=== PATIENT | female | born 2000 | race Caucasian/White ===

== ENCOUNTER 2023-06-18 20:07 | Inpatient (IN) | payer OTHER ==
[2023-06-18] MEDS ORDERED: SODIUM CHLORIDE 0.9% 1,000 ML IV STA (20:37)
--- NOTE | 2023-06-18 21:06 | ED ---
Neuro HPI - General Chief Complaint: Neuro Symptoms/Deficit Stated Complaint: numbness legs,back pain Time Seen by Provider: 06/18/23 20:24 Source: patient, RN notes reviewed, old records reviewed Mode of arrival: wheelchair Limitations: no limitations - History of Present Illness Is the patient presenting with stroke symptoms?: No -: days(s) (3) Initial Comments: This is a 22-year-old female to the emergency department for evaluation today. Patient presents today for evaluation bilateral lower extremity weakness significant numbness tingling of the lower legs lower extremities as well as difficulty walking today. Patient's been seen at initially urgent care and then sent to stand on emergency department and currently saw primary care today who sent her to this emergency department for evaluation regarding lower extremity weakness. No recent illness no nausea vomiting diarrhea. No other complaints Location: left leg, right leg Place: home Severity: severe Quality: weak, numb Improves With: none Worsens With: time On Anticoagulants: No Context: gradual onset Associated Symptoms: denies other symptoms Treatments Prior to Arrival: none - Related Data Home Medications: Home Medications Medication Instructions Recorded Confirmed Lumateperone Tosylate [Caplyta] 42 mg PO HS 06/18/23 06/22/23 PARoxetine HCL [Paxil] 10 mg PO HS 06/18/23 06/22/23 buPROPion XL [Wellbutrin XL] 300 mg PO DAILY 06/18/23 06/22/23 norgestimate-ethinyl estradioL 1 tab PO DAILY 06/18/23 06/22/23 [Lucy 0.25-0.035 mg Tablet] Previous Rx's Medication Instructions Recorded Cholecalciferol [Vitamin D3 (25 1,000 unit PO DAILY #30 tab 06/21/23 Mcg = 1000 Iu)] Cyanocobalamin [Vitamin B-12 1,000 mcg IM DIRECTED #10 ml 06/21/23 Injection] Allergies/Adverse Reactions: Allergies Allergy/AdvReac Type Severity Reaction Status Date / Time No Known Allergies Allergy Verified 06/22/23 14:43 Review of Systems ROS Statement: Those systems with pertinent positive or pertinent negative responses have been documented in the HPI. ROS Other: All systems not noted in ROS Statement are negative. General Exam - General Exam Comments Initial Comments: No appreciable patellar reflexes Patient is walking stiffly with significant difficulty in her gait Limitations: no limitations General appearance: alert, in no apparent distress Head exam: Present: atraumatic, normocephalic, normal inspection Eye exam: Present: normal appearance, PERRL, EOMI. Absent: scleral icterus, conjunctival injection, periorbital swelling ENT exam: Present: normal exam, mucous membranes moist Neck exam: Present: normal inspection. Absent: tenderness, meningismus, lymphadenopathy Respiratory exam: Present: normal lung sounds bilaterally. Absent: respiratory distress, wheezes, rales, rhonchi, stridor Cardiovascular Exam: Present: regular rate, normal rhythm, normal heart sounds. Absent: systolic murmur, diastolic murmur, rubs, gallop, clicks GI/Abdominal exam: Present: soft, normal bowel sounds. Absent: distended, tenderness, guarding, rebound, rigid Extremities exam: Present: normal inspection, full ROM, normal capillary refill. Absent: tenderness, pedal edema, joint swelling, calf tenderness Back exam: Present: normal inspection Neurological exam: Present: alert, oriented X3, CN II-XII intact Psychiatric exam: Present: normal affect, normal mood Skin exam: Present: warm, dry, intact, normal color. Absent: rash Stroke MDM - Lab Data Result diagrams: 06/19/23 08:21 06/19/23 08:21 Lab Results 06/18/23 06/18/23 06/18/23 Range/Units 20:56 20:56 20:56 WBC 7.8 (3.8-10.6) k/uL RBC 3.84 (3.80-5.40) m/uL Hgb 12.5 (11.4-16.0) gm/dL Hct 36.3 (34.0-46.0) % MCV 94.5 (80.0-100.0) fL MCH 32.6 (25.0-35.0) pg MCHC 34.5 (31.0-37.0) g/dL RDW 15.5 (11.5-15.5) % Plt Count 325 (150-450) k/uL MPV 7.5 Neutrophils % 74 % Lymphocytes % 19 % Monocytes % 6 % Eosinophils % 1 % Basophils % 0 % Neutrophils # 5.8 (1.3-7.7) k/uL Lymphocytes # 1.5 (1.0-4.8) k/uL Monocytes # 0.5 (0-1.0) k/uL Eosinophils # 0.0 (0-0.7) k/uL Basophils # 0.0 (0-0.2) k/uL PT 11.1 (10.0-12.5) sec INR 1.0 (<1.2) APTT 23.1 (22.0-30.0) sec Sodium (137-145) mmol/L Potassium (3.5-5.1) mmol/L Chloride (98-107) mmol/L Carbon Dioxide (22-30) mmol/L Anion Gap mmol/L BUN (7-17) mg/dL Creatinine (0.52-1.04) mg/dL Est GFR (CKD-EPI)AfAm (>60 ml/min/1.73 sqM) Est GFR (CKD-EPI)NonAf (>60 ml/min/1.73 sqM) Glucose (74-99) mg/dL Plasma Lactic Acid Lam (0.7-2.0) mmol/L Calcium (8.4-10.2) mg/dL Phosphorus (2.5-4.5) mg/dL Magnesium (1.6-2.3) mg/dL Total Bilirubin (0.2-1.3) mg/dL AST (14-36) U/L ALT (4-34) U/L Alkaline Phosphatase (38-126) U/L Total Protein (6.3-8.2) g/dL Albumin (3.5-5.0) g/dL Urine Color Colorless Urine Appearance Clear (Clear) Urine pH 6.0 (5.0-8.0) Ur Specific [place] 1.010 (1.001-1.035) Urine Protein Negative (Negative) Urine Glucose (UA) Negative (Negative) Urine Ketones Negative (Negative) Urine Blood Negative (Negative) Urine Nitrite Negative (Negative) Urine Bilirubin Negative (Negative) Urine Urobilinogen <2.0 (<2.0) mg/dL Ur Leukocyte Esterase Negative (Negative) Urine HCG, Qual (Not Detectd) 06/18/23 06/18/23 06/18/23 Range/Units 20:56 20:56 20:56 WBC (3.8-10.6) k/uL RBC (3.80-5.40) m/uL Hgb (11.4-16.0) gm/dL Hct (34.0-46.0) % MCV (80.0-100.0) fL MCH (25.0-35.0) pg MCHC (31.0-37.0) g/dL RDW (11.5-15.5) % Plt Count (150-450) k/uL MPV Neutrophils % % Lymphocytes % % Monocytes % % Eosinophils % % Basophils % % Neutrophils # (1.3-7.7) k/uL Lymphocytes # (1.0-4.8) k/uL Monocytes # (0-1.0) k/uL Eosinophils # (0-0.7) k/uL Basophils # (0-0.2) k/uL PT (10.0-12.5) sec INR (<1.2) APTT (22.0-30.0) sec Sodium 141 (137-145) mmol/L Potassium 4.6 (3.5-5.1) mmol/L Chloride 107 (98-107) mmol/L Carbon Dioxide 24 (22-30) mmol/L Anion Gap 10 mmol/L BUN 16 (7-17) mg/dL Creatinine 0.75 (0.52-1.04) mg/dL Est GFR (CKD-EPI)AfAm >90 (>60 ml/min/1.73 sqM) Est GFR (CKD-EPI)NonAf >90 (>60 ml/min/1.73 sqM) Glucose 140 H (74-99) mg/dL Plasma Lactic Acid Lam 1.0 (0.7-2.0) mmol/L Calcium 9.4 (8.4-10.2) mg/dL Phosphorus 3.1 (2.5-4.5) mg/dL Magnesium 1.9 (1.6-2.3) mg/dL Total Bilirubin 0.3 (0.2-1.3) mg/dL AST 16 (14-36) U/L ALT 18 (4-34) U/L Alkaline Phosphatase 41 (38-126) U/L Total Protein 6.8 (6.3-8.2) g/dL Albumin 4.1 (3.5-5.0) g/dL Urine Color Urine Appearance (Clear) Urine pH (5.0-8.0) Ur Specific [place] (1.001-1.035) Urine Protein (Negative) Urine Glucose (UA) (Negative) Urine Ketones (Negative) Urine Blood (Negative) Urine Nitrite (Negative) Urine Bilirubin (Negative) Urine Urobilinogen (<2.0) mg/dL Ur Leukocyte Esterase (Negative) Urine HCG, Qual Not Detected (Not Detectd) - NIH Stroke Scale 1a. Level of Consciousness: (0) alert 1b. LOC Questions: (0) answers correctly 1c. LOC Commands: (0) performs tasks correctly 2. Best Gaze: (0) normal 3. Visual: (0) no visual loss 4. Facial Palsy: (0) normal symmetrical movement 5a. Motor Arm Left: (0) no drift 5b. Motor Arm Right: (0) no drift 6a. Motor Leg Left: (2) some gravity effort 6b. Motor Leg Right: (2) some gravity effort 7. Limb Ataxia: (0) absent 8. Sensory: (0) normal 9. Best Language: (0) no aphasia 10. Dysarthria: (0) normal 11. Extinction/Inattention: (0) no abnormality - Thrombolytic Inclusion/Exclusion Thrombolytic Exclusion Criteria: Symptom Onset > 4.5 Hours - Medical Decision Making 22 female presents emergency department with significant lower extremity weakness, decreased sensation decreased reflexes concern for Guillain-Tong syndrome. Patient be admitted for neurology to evaluate - EKG Data -: EKG Interpreted by Me (EKG is sinus 85 MN 104 QRS 86 QTC 398) Past Medical History Past Medical History: No Reported History History of Any Multi-Drug Resistant Organisms: None Reported Past Surgical History: No Surgical Hx Reported Past Psychological History: Anxiety, Depression Smoking Status: Vaper Past Alcohol Use History: None Reported Past Drug Use History: None Reported Course Vital Signs 06/18/23 06/18/23 06/18/23 20:10 21:01 22:00 Temperature 98.1 F Pulse Rate 92 80 70 Respiratory 18 18 18 Rate Blood Pressure 132/82 121/72 99/61 O2 Sat by Pulse 98 98 99 Oximetry 06/18/23 06/19/23 06/19/23 23:00 01:00 04:00 Temperature Pulse Rate 79 72 73 Respiratory 18 16 16 Rate Blood Pressure 90/59 100/69 104/54 O2 Sat by Pulse 98 98 98 Oximetry 06/19/23 05:00 Temperature Pulse Rate 67 Respiratory 16 Rate Blood Pressure 102/61 O2 Sat by Pulse 97 Oximetry - Reevaluation(s) Reevaluation #1: 06/18/23 21:22 Medical records reviewed Reevaluation #2: 06/18/23 21:22 Patient symptoms unchanged Reevaluation #3: 06/18/23 21:22 Patient informed results questions answered Reevaluation #4: 06/18/23 21:22 Was pt. sent in by a medical professional or institution (, [facility], [facility], urgent care, hospital, or usp...) When possible be specific @ -no Did you speak to anyone other than the patient for history (EMS, parent, family, police, friend...)? What history was obtained from this source @ -no Did you review nursing and triage notes (agree or disagree)? Why? @ -agree Are old charts reviewed (outside hosp., previous admission, EMS record, old EKG, old radiological studies, urgent care reports/EKG's, usp records)? Report findings @ -yes Differential Diagnosis (chest pain, altered mental status, abdominal pain women, abdominal pain men, vaginal bleeding, weakness, fever, dyspnea, syncope, headache, dizziness, GI bleed, back pain, seizure, CVA, palpatations, mental health, musculoskeletal)? @ -prior EKG interpreted by me (3pts min.). @ -yes X-rays interpreted by me (1pt min.). @ -no CT interpreted by me (1pt min.). @ -no U/S interpreted by me (1pt. min.). @ -no What testing was considered but not performed or refused? (CT, X-rays, U/S, labs)? Why? @ -none What meds were considered but not given or refused? Why? @ -none Did you discuss the management of the patient with other professionals (professionals i.e. [facility], [facility], lab, RT, psych nurse, director social welfare, chip frier, teacher, life science technical officer, renal case manager)? Give summary @ -no Was smoking cessation discussed for >3mins.? @ -no Was critical care preformed (if so, how long)? @ -yes31 Were there social determinants of health that impacted care today? How? (Homelessness, low income, unemployed, alcoholism, drug addiction, transportati on, low edu. Level, literacy, decrease access to med. care, halfway, rehab)? @ -none Was there de-escalation of care discussed even if they declined (Discuss DNR or withdrawal of care, Hospice)? DNR status @ -no What co-morbidities impacted this encounter? (DM, HTN, Smoking, COPD, CAD, Cancer, CVA, ARF, Chemo, Hep., AIDS, mental health diagnosis, sleep apnea, morbid obesity)? @ -none Was patient admitted / discharged? Hospital course, mention meds given and route, prescriptions, significant lab abnormalities, going to OR and other pertinent info. @ - 22 female presents emergency department with significant lower extremity weakness, decreased sensation decreased reflexes concern for Guillain-Tong syndrome. Patient be admitted for neurology to evaluate Discharge Undiagnosed new problem with uncertain prognosis? @ -no Drug Therapy requiring intensive monitoring for toxicity (Heparin, Nitro, Insulin, Cardizem)? @ -no Were any procedures done? @ -no Diagnosis/symptom? @ -Bilateral lower extremity weakness severe Acute, or Chronic, or Acute on Chronic? @ -Acute Uncomplicated (without systemic symptoms) or Complicated (systemic symptoms)? @ -Complicated Side effects of treatment? @ -no Exacerbation, Progression, or Severe Exacerbation? @ -exacerbation Poses a threat to life or bodily function? How? (Chest pain, USA, MS, pneumonia, PE, COPD, DKA, ARF, appy, cholecystitis, CVA, Diverticulitis, Homicidal, Suicidal, threat to staff... and all critical care pts) @ -yes 9 for Paralysis Reevaluation #5: 06/18/23 21:22 Differential Weakness: Hypoglycemia, shock, sepsis, hyponatremia, anemia, infection, MS, ETOH, adverse medicine reaction, overdose, stroke, this is not meant to be an all-inclusive list. - Consultations Consultation #1: Spoke with carroll who agrees to admit the patient Critical Care Time Critical Care Time: Yes Total Critical Care Time: 31 Disposition Clinical Impression: Bilateral leg weakness Disposition: ADMITTED IP TO THIS HOSP Condition: Stable Is patient prescribed a controlled substance at d/c from ED?: No Time of Disposition: 21:15
[2023-06-18 21:07] LABS: Basophils % (A) 0 %; Eosinophils % (A) 1 %; HCT 36.3 % (34.0-46.0); HGB 12.5 gm/dL (11.4-16.0); Lymphocytes # (A) 1.5 k/uL (1.0-4.8); Lymphocytes % (A) 19 %; MCH 32.6 pg (25.0-35.0); MCHC 34.5 g/dL (31.0-37.0); MCV 94.5 fL (80.0-100.0); Mean Platelet Volume 7.5; Monocytes # (A) 0.5 k/uL (0-1.0); Monocytes % (A) 6 %; Neutrophils # (A) 5.8 k/uL (1.3-7.7); Neutrophils % (A) 74 %; Platelet Count 325 k/uL (150-450); RBC 3.84 m/uL (3.80-5.40); RDW 15.5 % (11.5-15.5); WBC 7.8 k/uL (3.8-10.6)
[2023-06-18] MEDS ORDERED: MORPHINE SULFATE 4 MG/ML SYRINGE IV PRN (21:11)
[2023-06-18] MEDS ORDERED: NALOXONE 0.4 MG/ML 1 ML VIAL IV PRN (21:11)
[2023-06-18 21:17] LABS: Partial Thromboplastin Time 23.1 sec (22.0-30.0); Prothrombin Time 11.1 sec (10.0-12.5)
[2023-06-18 21:20] LABS: ALT 18 U/L (4-34); AST 16 U/L (14-36); African American GFR (CKD) >90 (>60 ml/min/1.73 sqM); Albumin 4.1 g/dL (3.5-5.0); Alkaline Phosphatase 41 U/L (38-126); Anion Gap 10 mmol/L; Blood Urea Nitrogen 16 mg/dL (7-17); Calcium 9.4 mg/dL (8.4-10.2); Carbon Dioxide 24 mmol/L (22-30); Chloride 107 mmol/L (98-107); Glucose 140 mg/dL (74-99); Magnesium 1.9 mg/dL (1.6-2.3); Non-African American GFR(CKD) >90 (>60 ml/min/1.73 sqM); Phosphorus 3.1 mg/dL (2.5-4.5); Potassium 4.6 mmol/L (3.5-5.1); Sodium 141 mmol/L (137-145); Total Bilirubin 0.3 mg/dL (0.2-1.3); Total Protein 6.8 g/dL (6.3-8.2)
[2023-06-18] MEDS: SODIUM CHLORIDE 0.9% 1,000 ML IV SCH (21:32)
[2023-06-18 23:11] LABS: Appearance,Urine Clear (Clear); Bilirubin,Urine Negative (Negative); Blood,Urine Negative (Negative); Color,Urine Colorless; Glucose,Urine (UA) Negative (Negative); Ketones,Urine Negative (Negative); Leukocyte Esterase,Urine Negative (Negative); Nitrite,Urine Negative (Negative); Protein,Urine Negative (Negative); Urobilinogen,Urine <2.0 mg/dL (<2.0)
--- NOTE | 2023-06-19 04:22 | P.CNPUL ---
History of Present Illness Consult date: 06/19/23 Requesting physician: Roland Diaz Reason for consult: other (ICU evaluation) Chief complaint: Lower extremity weakness, abnormal gait History of present illness: I am seeing this patient in consultation today 06/19/2023 in the emergency room as there were concerns for ascending lower extremity weakness. Patient is a 22-year-old female past medical history significant for anxiety and depression. Patient reports lower extremity weakness and difficulty walking over the last 4 days. She does live in an apartment and has had trouble walking up the stairs. She reports that the lower extremity weakness is symmetrical and bilateral. There is associated tingling and numbness. She states that it is ascending, starting in the bottom of her feet and has moved up to her bilateral lower legs. Denies any recent illnesses. Denies any recent upper respiratory tract infection symptoms or infections GI symptoms. Denies any recent vaccinations. Denies trauma. Denies any significant back pain, however, she does state the symptoms did start to appear after "cracking" her back. No bowel or bladder incontinence. Straight leg raise negative. Patient's extremity strength while in bed is grade 4/5 bilaterally. No significant ataxia. Patellar DTRs are depressed bilaterally. On examination her gait is wobbly. Patient presented to a local urgent care clinic with these symptoms, and was directed to the emergency room. She is currently lying in bed, on room air, in no acute distr ess. Denies any respiratory difficulty. Her mother is at bedside. CBC and BMP on arrival were unremarkable. LFTs not elevated. Normal saline is infusing at 75 mL per hour. The patient appears hemodynamically stable. Respiratory function is not affected. Patient will be admitted to the cardiac stepdown unit. Review of Systems REVIEW OF SYSTEMS: CONSTITUTIONAL: Denies any recent significant weight loss or weight gain. EYES: Denies change in vision. EARS, NOSE, MOUTH, THROAT: Denies headaches, denies sore throat. CARDIOVASCULAR: Denies chest pain, palpitations or syncopal episodes. RESPIRATORY: Denies shortness of breath, cough, congestion or hemoptysis. GASTROINTESTINAL: Denies change in appetite, abdominal pain, nausea and vomiting, or diarrhea GENITOURINARY: Denies hematuria, denies infections. MUSKULOSKELETAL: Denies pain, denies swelling. INTEGUMENTARY: Denies rash, denies eczema. NEUROLOGICAL: Denies recent memory loss, no recent seizure activity. See HPI PSYCHIATRIC: Denies anxiety, denies depression. HEMATOLOGIC/LYMPHATIC: Denies anemia, denies enlarged lymph node Past Medical History Past Medical History: No Reported History History of Any Multi-Drug Resistant Organisms: None Reported Past Surgical History: No Surgical Hx Reported Past Psychological History: Anxiety, Depression Smoking Status: Vaper Past Alcohol Use History: None Reported Past Drug Use History: None Reported Medications and Allergies Home Medications Medication Instructions Recorded Confirmed Type Lumateperone Tosylate [Caplyta] 42 mg PO HS 06/18/23 06/18/23 History PARoxetine HCL [Paxil] 10 mg PO HS 06/18/23 06/18/23 History buPROPion XL [Wellbutrin XL] 300 mg PO DAILY 06/18/23 06/18/23 History norgestimate-ethinyl estradioL 1 tab PO DAILY 06/18/23 06/18/23 History [Lucy 0.25-0.035 mg Tablet] Allergies Allergy/AdvReac Type Severity Reaction Status Date / Time No Known Allergies Allergy Verified 06/18/23 20:48 Physical Exam Vitals: Vital Signs Temp Pulse Resp BP Pulse Ox 06/18/23 23:00 79 18 90/59 98 06/18/23 22:00 70 18 99/61 99 06/18/23 21:01 80 18 121/72 98 06/18/23 20:10 98.1 F 92 18 132/82 98 Intake and Output 06/18/23 06/18/23 06/19/23 14:59 22:59 06:59 Other: Weight 70.76 kg GENERAL EXAM: Alert, 22-year-old white female appearing stated age, comfortable in no apparent distress. HEAD: Normocephalic and atraumatic EYES: Normal reaction of pupils, equal size. NOSE: Clear with pink turbinates. THROAT: No erythema or exudates. NECK: No masses, no JVD. CHEST: No chest wall deformity. LUNGS: Equal air entry with no crackles, wheeze, rhonchi or dullness. On room air. SpO2 99%. Adequate lung/chest expansion. No conversational dyspnea or accessory muscle use.. CVS: S1 and S2 normal with no audible murmur, regular rhythm. No extra heart sounds ABDOMEN: No hepatosplenomegaly, active bowel sounds, no guarding or rigidity. SPINE: No scoliosis or deformity. No point tenderness. Straight leg test negative. SKIN: No rashes CENTRAL NERVOUS SYSTEM: Gait is abnormal. No significant ataxia. Patellar DTRs are depressed bilaterally. No significant facial weakness or speech difficulty. No ptosis. EXTREMITIES: There is no peripheral edema, clubbing, or cyanosis. Peripheral pulses are intact. Bilateral lower extremity strength grade 4/5. Results - Laboratory Findings CBC and BMP: 06/19/23 08:21 06/19/23 08:21 PT/INR, D-dimer PT 11.1 sec (10.0-12.5) 06/18/23 20:56 INR 1.0 (<1.2) 06/18/23 20:56 Abnormal lab findings: Abnormal Labs 06/18/23 20:56 Glucose 140 H Assessment and Plan Assessment: Ascending bilateral symmetrical lower extremity weakness, questionable GBS Abnormalities of gait and mobility History of anxiety History of depression Plan: There is no indication of respiratory compromise or hypercapnia. Patient will be admitted to the cardiac stepdown unit for close monitoring. Patient has bilateral/symmetrical lower extremity ascending weakness. There were questions of possible GBS. Patient denies any recent URI symptoms or gastroenteritis symptoms. No recent vaccinations. We will continue to monitor the patient's ascending weakness, if it progresses, consider PFT. Neurology has been consulted for managment of the above-mentioned symptoms. Consider EMG. Patient is currently scheduled for MRI of lumbar spine. Will continue to follow. I have personally seen and examined the patient, performed the documentation and the assessment and plan as written. Number of minutes spent on the visit:20 This is a joint evaluation that was done along with a nurse practitioner. His evaluation was done in more than 30 minutes. In summary, the patient has progressive weakness along with paresthesias in the lower extremities along with loss and reflexes. Patient has normal reflexes in the upper extremities. No signs of any respiratory compromise. She will need further investigation at this point on by neurology. MRI of the brain was ordered. MRI of the lumbar spine was ordered. The patient is also being considered for lumbar puncture. S he is on room air oxygen. No respiratory difficulties. She has a adequate cough and a gag. No need for ICU transfer this point in time. We'll follow recommendations by neurology. Time with Patient: Greater than 30
--- NOTE | 2023-06-19 04:25 | P.HPIM ---
History of Present Illness H&P Date: 06/18/23 Chief Complaint: numbness and tingling lower extremities 22 year old female with depression and anxiety she has been experiencing progressive numbness and tingling of her lower extremities, started over the feet , then started progressing proximally now all the way up to bilateral knees. she denies any weakness, but noticed some trouble walking over the past few days. these symptoms has been going on for at leasst a week she denies any recent illness, travel , or uRI symptoms. denies any similar symptoms in the past. she reports history of MS in the family. she denies any trouble breathing, swallowing, or any other focal neuro deficits. denies any head trauma, or back trauma . she denies any back pain. admits to vaping nicotine , denies any illicit drugs or alcohol review of systems Pertinent positives as noted in HPI. All other systems were reviewed and are negative on exam Constitutional: No acute distress, conversant, pleasant Eyes: Anicteric sclerae, moist conjunctiva, Pupils equal round reactive to light ENMT: NC/AT Oropharynx clear, no erythema, or exudates Neck: Supple, no masses, or JVD No carotid bruits No thyromegaly Lungs: Clear to auscultation Clear to percussion Normal respiratory effort, no accessory muscle use Cardiovascular: Heart regular in rate and rhythm, No murmurs, gallops, or rubs No peripheral edema Abdominal: Soft Nontender, no guarding, rebound or rigidity Abdomen moving with respiration Normoactive bowel sounds No hepatomegaly, No splenomegaly No palpable mass No abdominal wall hernia noted Extremities: No digital cyanosis No clubbing Pedal pulses intact and symmetrical Radial pulses intact and symmetrical No calf tenderness Psychiatric: Alert and oriented to person, place and time Appropriate affect fair judgement Neuro Muscles Strength 5/5 in all 4 extremities decrease sensation to light touch and painful stimuli over bilateral lower extremities up to bilateral knees. Cranial nerves II-XII grossly intact finger nose test intact. struggled with heel ward test bilaterally plantar reflex downward bilaterally. sensation was intact to light touch and painful stimuli over bilateral plantar aspect of the feet. Lymphatics: no palpable cervical or supraclavicular lymph nodes Past Medical History Past Medical History: No Reported History History of Any Multi-Drug Resistant Organisms: None Reported Past Surgical History: No Surgical Hx Reported Past Psychological History: Anxiety, Depression Smoking Status: Vaper Past Alcohol Use History: None Reported Past Drug Use History: None Reported Medications and Allergies Home Medications Medication Instructions Recorded Confirmed Type Lumateperone Tosylate [Caplyta] 42 mg PO HS 06/18/23 06/18/23 History PARoxetine HCL [Paxil] 10 mg PO HS 06/18/23 06/18/23 History buPROPion XL [Wellbutrin XL] 300 mg PO DAILY 06/18/23 06/18/23 History norgestimate-ethinyl estradioL 1 tab PO DAILY 06/18/23 06/18/23 History [Lucy 0.25-0.035 mg Tablet] Allergies Allergy/AdvReac Type Severity Reaction Status Date / Time No Known Allergies Allergy Verified 06/18/23 20:48 Physical Exam Vitals: Vital Signs Temp Pulse Resp BP Pulse Ox 06/19/23 04:00 73 16 104/54 98 06/19/23 01:00 72 16 100/69 98 06/18/23 23:00 79 18 90/59 98 06/18/23 22:00 70 18 99/61 99 06/18/23 21:01 80 18 121/72 98 06/18/23 20:10 98.1 F 92 18 132/82 98 Intake and Output 06/18/23 06/18/23 06/19/23 14:59 22:59 06:59 Other: Weight 70.76 kg Results CBC & Chem 7: 06/18/23 20:56 06/18/23 20:56 Labs: Abnormal Lab Results - Last 24 Hours (Table) 06/18/23 Range/Units 20:56 Glucose 140 H (74-99) mg/dL Assessment and Plan Assessment: 22 year old female with deperssion and anxiety , coming in with progressive numbness and tingling over bilateral lower extremities with trouble walking over past couple days, I discussed the case with ED doc and I accepted the admission for neurological evaluation with anticipated length of stay < 2 midnight bilateral lower extremities numbness neurology consult no history of focal neuro deficits, positive family history of MS Wbc 7.8, Hgb 12.5 Na 141 K 4.6 BUN 16 cr 0.7 UA unremarkable neuro checks Depression resume home meds full code DVT PPX mechanical
[2023-06-19] MEDS: buPROPion XL 300 MG TAB.ER.24H PO SCH (09:10)
[2023-06-19 09:54] LABS: Basophils % (A) 0 %; Eosinophils # (A) 0.2 k/uL (0-0.7); Eosinophils % (A) 2 %; HCT 35.5 % (34.0-46.0); HGB 11.9 gm/dL (11.4-16.0); Lymphocytes # (A) 3.2 k/uL (1.0-4.8); Lymphocytes % (A) 41 %; MCH 32.2 pg (25.0-35.0); MCHC 33.6 g/dL (31.0-37.0); MCV 95.8 fL (80.0-100.0); Mean Platelet Volume 7.4; Monocytes # (A) 0.4 k/uL (0-1.0); Monocytes % (A) 5 %; Neutrophils % (A) 51 %; Platelet Count 274 k/uL (150-450); RBC 3.71 m/uL (3.80-5.40); RDW 15.3 % (11.5-15.5); WBC 7.9 k/uL (3.8-10.6)
[2023-06-19] MEDS ORDERED: LORazepam 2 MG/ML INJ IV STA ×2 (10:52)
[2023-06-19 12:31] LABS: ALT 17 U/L (4-34); AST 17 U/L (14-36); African American GFR (CKD) >90 (>60 ml/min/1.73 sqM); Albumin 3.6 g/dL (3.5-5.0); Alkaline Phosphatase 39 U/L (38-126); Anion Gap 7 mmol/L; Blood Urea Nitrogen 14 mg/dL (7-17); Calcium 8.8 mg/dL (8.4-10.2); Carbon Dioxide 24 mmol/L (22-30); Chloride 109 mmol/L (98-107); Glucose 97 mg/dL (74-99); Lipase 52 U/L (23-300); Magnesium 1.8 mg/dL (1.6-2.3); Non-African American GFR(CKD) >90 (>60 ml/min/1.73 sqM); Phosphorus 3.2 mg/dL (2.5-4.5); Potassium 3.5 mmol/L (3.5-5.1); Sodium 140 mmol/L (137-145); Total Bilirubin 0.4 mg/dL (0.2-1.3); Total Protein 6.2 g/dL (6.3-8.2)
[2023-06-19 12:45] LABS: Creatine Kinase 30 U/L (30-135)
--- NOTE | 2023-06-19 13:45 | P.CNNES ---
History of Present Illness Consult date: 06/19/23 Requesting physician: Roland Diaz Reason for Consult: Leg weakness History of Present Illness: Patient is a 22-year-old female otherwise healthy, came to the hospital yesterday at 8:07 PM for progressive numbness and tingling of the feet, lower extremities and abnormal gait. Patient's mother was also present, and both of them provided with history. Patient states that last 06/15/2023, she cracked her back, and did not feel normal. Next day on Friday morning, when she woke up, felt pins and needles sensation in the feet bilaterally. She was still able to go to work. Next day on Friday, she had difficulty with walking, she went to urgent care and she was recommended to go to [facility] where she stayed for about 6 hours. There she underwent some blood testing, urine test and was sent her home on prednisone 20 mg twice a day, and to follow-up with a primary physician. Next day on Friday, which is yesterday, she was not able to walk. She suffered from a fall because of losing balance. The numbness has now progressed up to below knees bilaterally. She went to her primary physician's office, who recommended her to go to the ER. Patient denies any symptoms in the upper extremities, no back pain, no recent upper respiratory infection, recent vaccination or recent Covid infection. Patient denies diabetes or blood pressure. Patient has history of anxiety and depression, and her primary physician has diagnosed her with bipolar disorder. She started new medication Calypta about 6 months ago. Patient denies any tobacco or alcohol although she does vape. Patient states that in around December or January 2023 she developed weakness of an eye muscle of the left eye. She would have difficulty with focusing with the left eye. There was no double vision. She saw an zipper machine operator, who gave her different prescription lenses, and about 2 days later the symptoms went away. She was told that it was because of weay eye that the muscles get weak and it wanders. No double vision. Patient denies any tick bite. Vital signs arrival blood pressure 132/82, pulse rate 92, temperature 98.1. Blood test shows normal CBC, PT/PTT, normal CMP, UA. EKG shows sinus rhythm w ith sinus arrhythmia. Review of Systems Constitutional: Reports weight gain, Denies chills, Denies fever Eyes: denies blurred vision, denies diplopia, denies pain Ears: deny: decreased hearing, ear discharge Ears, nose, mouth and throat: Denies headache, Denies sore throat, Denies julia tigo Cardiovascular: Denies chest pain, Denies shortness of breath Respiratory: Denies cough, Denies excessive sputum Gastrointestinal: Denies abdominal pain, Denies diarrhea, Denies nausea, Denies vomiting Genitourinary: Denies dysuria, Denies hematuria, Denies mixed incontinence, Denies urge incontinence, Denies urgency Musculoskeletal: Reports low back pain, Reports neck pain (Resolved), Denies myalgias Integumentary: Denies pruritus, Denies rash Neurological: Reports numbness, Reports weakness, Denies syncope Psychiatric: Reports anxiety, Reports depression Endocrine: Reports fatigue, Denies weight change Hematologic/Lymphatic: Denies easy bleeding, Denies easy bruising Past Medical History Past Medical History: No Reported History History of Any Multi-Drug Resistant Organisms: None Reported Past Surgical History: No Surgical Hx Reported Past Psychological History: Anxiety, Bipolar, Depression Smoking Status: Current every day smoker, Vaper Past Alcohol Use History: None Reported Past Drug Use History: None Reported Medications and Allergies Home Medications Medication Instructions Recorded Confirmed Type Lumateperone Tosylate [Caplyta] 42 mg PO HS 06/18/23 06/18/23 History PARoxetine HCL [Paxil] 10 mg PO HS 06/18/23 06/18/23 History buPROPion XL [Wellbutrin XL] 300 mg PO DAILY 06/18/23 06/18/23 History norgestimate-ethinyl estradioL 1 tab PO DAILY 06/18/23 06/18/23 History [Lucy 0.25-0.035 mg Tablet] Allergies Allergy/AdvReac Type Severity Reaction Status Date / Time No Known Allergies Allergy Verified 06/18/23 20:48 Physical Examination - Vital Signs Vital Signs: Vital Signs Temp Pulse Pulse Resp BP BP Pulse Ox 06/19/23 11:44 97.9 F 77 17 116/74 99 06/19/23 08:20 77 06/19/23 08:18 97.9 F 77 17 113/76 96 06/19/23 05:41 98.1 F 72 15 112/71 100 06/19/23 05:00 67 16 102/61 97 06/19/23 04:00 73 16 104/54 98 06/19/23 01:00 72 16 100/69 98 06/18/23 23:00 79 18 90/59 98 06/18/23 22:00 70 18 99/61 99 06/18/23 21:01 80 18 121/72 98 06/18/23 20:10 98.1 F 92 18 132/82 98 Intake and Output 06/18/23 06/19/23 06/19/23 22:59 06:59 14:59 Other: Voiding Method Toilet Weight 70.76 kg 70.76 kg Patient is a young female, in no acute distress. Patient is alert awake oriented to time place and person. Speech and language functions are normal. Patient can name and repeat very well. No aphasia or dysarthria. Attention, concentration and fund of knowledge is adequate. On cranial nerve examination, pupils are equal, round and reacting to light, visual brown are full on confrontation, with no neglect on double simultaneous stimulation. Extraocular muscles are intact with no nystagmus. Face is symmetric, tongue protrudes to the midline. Palatal elevation and sensation normal, hearing and shoulder shrug normal, facial sensation normal. On muscle strength testing, there is no pronator drift and the strength is normal in arms and legs distally and proximally. Deep tendon reflexes are (right/left) biceps 1+/2, brachioradialis 2+/2+, knees 0/0, ankles 0/0 and plantars are flat on the right, downgoing on the left. Sensory to touch is equal, but is decreased from toes up to above the mid calves bilaterally. Patient has evidence of bruise over her bilateral knees from the fall. Cerebellar function showed no ataxia for [id number] testing. No dysdiadochokinesia. Patient has moderate taxia for [id number] testing on either side. Tone and bulk of muscles normal. Gait deferred. Per patient's mother, she is very ataxic when walking with wide base. On general examination, there is no carotid bruit or murmur, S1-S2 audible. Chest is clear on consultation. Abdomen is soft nontender. No organomegaly, bowel sounds present. Peripheral pulses are present. No peripheral edema. Results - Laboratory Findings CBC and BMP: 06/19/23 08:21 06/19/23 08:21 Abnormal Lab Findings: Abnormal Labs 06/18/23 06/19/23 06/19/23 20:56 08:21 08:21 RBC 3.71 L Chloride 109 H Glucose 140 H Total Protein 6.2 L Assessment and Plan Assessment: * Acutely progressive paresthesias with pins and needle sensation in the feet extending to below knees bilaterally and lower limb ataxia, that has progressed over 4 days period of time. Examination reveals normal muscle strength, decreased sensation distally up to mid calves and ataxia of the lower extremities. Patient has fairly normal reflexes in the upper limbs, but absent reflexes in the lower limbs. Guillain-Tong syndrome is highly in the differential. Patient denies any recent upper respiratory infection or recent vaccination. * Anxiety, depression * Vapes Plan: * Agree with checking MRI of the brain with and without contrast rule out any demyelinating disease, and MRI of the lumbar spine. * Agree with checking B12, folate, TSH, CK. We will also check Lyme titer, PAULA, ESR, CRP and BEN level. * Lumbar puncture to evaluate for CSF proteins * If the diagnosis is confirmed, then patient will be a candidate for IVIG. * Neurology will follow. Thank you for the consult.
[2023-06-19 15:57] LABS: C Reactive Protein 0.6 mg/dL (<1.0)
[2023-06-19] MEDS: SODIUM CHLORIDE 0.9% 1,000 ML IV SCH (16:56)
[2023-06-19] MEDS ORDERED: LORazepam 2 MG/ML INJ IV PRN (16:57)
--- NOTE | 2023-06-19 20:19 | P.PN ---
Subjective Progress Note Date: 06/19/23 (delayed charting seen at approx 10 am) Patient is a 22-year-old female with known history of anxiety, depression, and the use who presented to the emergency department due to progressive tingling and difficulty walking over the last several days. 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 Her laboratory analysis on admission to the ER here was essentially unremarkable. She was ad mitted for possible Guillain-Tong syndrome. Pulmonary was consulted and she had no signs of respiratory compromise. Neurology consult pending. Patient seen and examined at bedside. She denies any recent cough, cold, fever, flu, nausea, vomiting, diarrhea. She denies any recent vaccinations. She has not recently started or stopped any medications. She denies any illicit drug use or unusual supplement use. She reports a sudden onset of symptoms starting on Friday or Friday of this week. She did have a fall afterwards but has no fall before. There is a family history of multiple sclerosis in her aunt. She denies any difficulty with urination. She has had some difficulty with her gaze and has been seeing her detail manager. She does feel anxious. Mother Present at Bedside. Vital signs reviewed General: nontoxic, no distress, appears at stated age Cardiovascular: S1S2 reg, no murmur, positive posterior tibial pulse bilateral, Lungs: CTA bilateral, no rhonchi, no rales , no accessory muscle use Abdominal: soft, nontender to palpation, no guarding, no appreciable organom egaly Ext: no gross muscle atrophy, no edema b/l lower extremities, no contractures Neuro: CN II-XI grossly intact, muscle strength intact bilateral upper extremities, sensation intact bilateral upper extremities, bilateral lower extremities with decreased hip flexion muscle strength but muscle strength 5 out of 5 and the remainder of the exam, decreased pinprick sensation to bilateral lower extremities up until mid calf, poor [id number]-lh-[id number] bilaterally, intact finger to nose bilaterally, ataxic gait, spinal exam reveals no acute spinous process tenderness with no step off. Telemetry reflex absent bilaterally, brachial reflex 2 out of 4 bilaterally Psych: Alert, oriented, appropriate affect Assessment/Plan: Bilateral lower extremity paresthesias with associated ataxia -MRI brain with and without contrast, MRI lumbar spine with and without contrast -Check TSH, B12, vitamin D, folic acid levels, CK -Await neurology consultation Anxiety/depression - Wellbutrin 300 mg daily, Paxil 10 mg at night Imaging: None New Data Review: Labs reviewed from today include CBC, CMP, and CRP NEGATIVE. DVT prophylaxis: SCDs Anticipated discharge date: Pending Clinical Course Anticipated discharge place: Pending Clinical Course This dictation was prepared using Sprig voice recognition software. Though every attempt is made to correct errors during dictation some may still exist. Objective - Vital Signs Vital signs: Vital Signs Temp 97.9 F 06/19/23 20:00 Pulse 88 06/19/23 20:00 Resp 18 06/19/23 20:00 BP 111/68 06/19/23 20:00 Pulse Ox 98 06/19/23 20:00 FiO2 Intake & Output 06/19/23 06/19/23 06/20/23 06:59 18:59 06:59 Intake Total 478 Balance 478 Weight 70.76 kg Intake: Oral 478 Other: Voiding Method Toilet # Voids 1 - Labs CBC & Chem 7: 06/19/23 08:21 06/19/23 08:21 Labs: Abnormal Lab Results - Last 24 Hours (Table) 06/18/23 06/19/23 06/19/23 Range/Units 20:56 08:21 08:21 RBC 3.71 L (3.80-5.40) m/uL Chloride 109 H (98-107) mmol/L Glucose 140 H (74-99) mg/dL Total Protein 6.2 L (6.3-8.2) g/dL
[2023-06-19] MEDS: PARoxetine 10 MG TAB PO SCH (20:37)
[2023-06-19 21:38] LABS: Vitamin B12 <150.0 pg/mL (200.0-944.0)
--- NOTE | 2023-06-19 21:45 | MR ---
EXAMINATION TYPE: MR lumbar spine wo/w con DATE OF EXAM: 06/19/2023 HISTORY: ROSANA LE weakness COMPARISON: None TECHNIQUE: Multiplanar, multisequence images of the lumbar spine were acquired without and with 7ml m L intravenous Gadavist gadolinium contrast. INTRAMEDULLARY EXAMINATION: Visualized spinal cord and cauda equina have normal morphology and signal characteristics on all sequ ences. The contrast enhancement pattern is unremarkable. EXTRAMEDULLARY/INTRADURAL EXAMINATION: Negative EXTRADURAL EXAMINATION: Lumbar segments are intact. L1-L2: Normal disc appearance without desiccation. No herniation, protrusion or disc bulging. No ca nal stenosis is present. Neural foramen are patent bilaterally. L2-L3: Normal disc appearance without desiccation. No herniation, protrusion or disc bulging. No ca nal stenosis is present. Neural foramen are patent bilaterally. L3-L4: Normal disc appearance without desiccation. No herniation, protrusion or disc bulging. No ca nal stenosis is present. Neural foramen are patent bilaterally. L4-L5: Normal disc appearance without desiccation. No herniation, protrusion or disc bulging. No ca nal stenosis is present. Neural foramen are patent bilaterally. L5-S1: Normal disc appearance without desiccation. No herniation, protrusion or disc bulging. No ca nal stenosis is present. Neural foramen are patent bilaterally. Bilateral facet joint mild T2 hyperin tensity is noted, a nonspecific finding. PARASPINAL SOFT TISSUES: Negative. IMPRESSION: No MR correlate for the history of bilateral lower extremity weakness.
[2023-06-20] MEDS: SODIUM CHLORIDE 0.9% 1,000 ML IV SCH ×2 (01:19→18:51)
[2023-06-20] MEDS: buPROPion XL 300 MG TAB.ER.24H PO SCH (08:48)
[2023-06-20] MEDS: CYANOCOBALAMIN 1,000 MCG/ML 1 ML VIAL IM SCH (09:03)
--- NOTE | 2023-06-20 12:03 | P.PN ---
Subjective Progress Note Date: 06/20/23 I am seeing this patient in consultation today 06/19/2023 in the emergency room as there were concerns for ascending lower extremity weakness. Patient is a 22-year-old female past medical history significant for anxiety and depression. Patient reports lower extremity weakness and difficulty walking over the last 4 days. She does live in an apartment and has had trouble walking up the stairs. She reports that the lower extremity weakness is symmetrical and bilateral. There is associated tingling and numbness. She states that it is ascending, starting in the bottom of her feet and has moved up to her bilateral lower legs. Denies any recent illnesses. Denies any recent upper respiratory tract infection symptoms or infections GI symptoms. Denies any recent vaccinations. Denies trauma. Denies any significant back pain, however, she does state the symptoms did start to appear after "cracking" her back. No bowel or bladder incontinence. Straight leg raise negative. Patient's extremity strength while in bed is grade 4/5 bilaterally. No significant ataxia. Patellar DTRs are depressed bilaterally. On examination her gait is wobbly. Patient presented to a local urgent care clinic with these symptoms, and was directed to the emergency room. She is currently lying in bed, on room air, in no acute distress. Denies any respiratory difficulty. Her mother is at bedside. CBC and BMP on arrival were unremarkable. LFTs not elevated. Normal saline is infusing at 75 mL per hour. The patient appears hemodynamically stable. Respiratory function is not affected. Patient will be admitted to the cardiac stepdown unit. 06/20/2023, the patient is stable. Workup is in progress regarding the lower extremity weakness and absent reflexes. The patient underwent an MRI of the lumbar spinous came back essentially within normal limits. Awaiting MRI of the brain. Lumbar puncture is currently on standby. Sedimentation rate is at 5. Vitamin B12 level came back very low, less than 150, a started at 17, folate level is at 576. Objective - Vital Signs Vital signs: Vital Signs Temp 97.9 F 06/20/23 08:00 Pulse 100 06/20/23 08:00 Resp 17 06/20/23 08:00 BP 116/70 06/20/23 08:00 Pulse Ox 98 06/20/23 09:19 FiO2 Intake & Output 06/19/23 06/20/23 06/20/23 18:59 06:59 18:59 Intake Total 478 Balance 478 Weight 70.76 kg Intake: Oral 478 Other: Voiding Method Toilet Toilet # Voids 1 1 - Exam GENERAL EXAM: Alert, 22-year-old white female appearing stated age, comfortable in no apparent distress. HEAD: Normocephalic and atraumatic EYES: Normal reaction of pupils, equal size. NOSE: Clear with pink turbinates. THROAT: No erythema or exudates. NECK: No masses, no JVD. CHEST: No chest wall deformity. LUNGS: Equal air entry with no crackles, wheeze, rhonchi or dullness. On room air. SpO2 99%. Adequate lung/chest expansion. No conversational dyspnea or accessory muscle use.. CVS: S1 and S2 normal with no audible murmur, regular rhythm. No extra heart sounds ABDOMEN: No hepatosplenomegaly, active bowel sounds, no guarding or rigidity. SPINE: No scoliosis or deformity. No point tenderness. Straight leg test negative. SKIN: No rashes CENTRAL NERVOUS SYSTEM: Gait is abnormal. No significant ataxia. Patellar DTRs are depressed bilaterally. No significant facial weakness or speech difficulty. No ptosis. EXTREMITIES: There is no peripheral edema, clubbing, or cyanosis. Peripheral pulses are intact. Bilateral lower extremity strength grade 4/5. - Labs CBC & Chem 7: 06/19/23 08:21 06/19/23 08:21 Labs: Abnormal Lab Results - Last 24 Hours (Table) 06/19/23 06/19/23 Range/Units 08:21 08:21 Chloride 109 H (98-107) mmol/L Total Protein 6.2 L (6.3-8.2) g/dL Vitamin B12 <150.0 L (200.0-944.0) pg/mL Vitamin D 25-Hydroxy 14.5 L (30.0-100.0) ng/mL Assessment and Plan Assessment: Ascending bilateral symmetrical lower extremity weakness, questionable GBS. Consider also vitamin B12 deficiency induced peripheral neuropathy Vitamin B12 deficiency, rule out pernicious anemia Abnormalities of gait and mobility History of anxiety History of depression Plan: MRI of the brain is pending Patient was started on IM vitamin B12 on a daily basis 100 g Lumbar puncture is currently on hold No signs of any respiratory insufficiency We'll continue to follow
[2023-06-20] MEDS ORDERED: LORazepam 2 MG/ML INJ IV PRN (15:27)
--- NOTE | 2023-06-20 16:28 | MR ---
EXAMINATION TYPE: MR brain wo/w con DATE OF EXAM: 06/20/2023 COMPARISON: None HISTORY: Numbness and lower extremity weakness CONTRAST: Performed utilizing 7 mL intravenous Gadavist gadolinium contrast. TECHNIQUE: Multiplanar, multiecho imaging on a 3.0 Tatum magnet is performed through the brain. Stud y is performed within 24 hours of arrival to the hospital. The craniovertebral junction is normal. The pituitary is normal. Diffusion-weighted imaging is performed. No abnormal hyperintensity is present to suggest an acute i ntracranial infarct or acute ischemic change. No suspicious signal abnormality within the brain is evident. Temporal lobes appear symmetrical. Ventricles and sulci are appropriate for the patient age. No abnormal enhancement is evident. IMPRESSION: 1. No acute intracranial processes pre and post contrast MRI.
--- NOTE | 2023-06-20 17:08 | P.PN ---
Subjective Progress Note Date: 06/20/23 (delayed charting seen at 0915) Patient is a 22-year-old female with known history of anxiety, depression, and the use who presented to the emergency department due to progressive tingling and difficulty walking over the last several days. 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 Her laboratory analysis on admission to the ER here was essentially unremarkable. She was admitted for possible Guillain-Tong syndrome. Pulmonary was consulted and she had no signs of respiratory compromise. Neurology consulted and agrees with MRI Brain and L-spine concern for gullian-Bob White. Patient seen and examined at bedside with mother present. She believes that her antalgic gait and numbness are getting worse. Vital signs reviewed General: nontoxic, no distress, appears at stated age Cardiovascular: S1S2 reg, no murmur, positive posterior tibial pulse bilateral, Lungs: CTA bilateral, no rhonchi, no rales , no accessory muscle use Abdominal: soft, nontender to palpation, no guarding, no appreciable organomegaly Ext: no gross muscle atrophy, no edema b/l lower extremities, no contractures Neuro: CN II-XI grossly intact, Patient is able to differentiate sharp from dull on the top of her feet, bilateral ankles, and bilateral knees which is an improvement from yesterday where it does seem pinpoint felt dull, she does have some decreased sensation on the bottom of her feet where she just filled I'll touch yesterday but does not respond to pinpoint touch today Psych: Alert, oriented, appropriate affect Assessment/Plan: Bilateral lower extremity paresthesias with associated ataxia -MRI brain with and without contrast, MRI lumbar spine with and without contrast -Check TSH, B12, vitamin D, folic acid levels, CK -Await further neurology recs -Pulmonary note reviewed: MRI of the brain pending, continue with vitamin B12, lumbar puncture on hold. Vitamin B12 deficiency -Vitamin B 12,000 g IM daily 7 days, then weekly 3 Anxiety/depression - Wellbutrin 300 mg daily, Paxil 10 mg at night Imaging: None New Data Review: Labs reviewed include ESR 5, CRP 0.6, angiotensin converting enzyme 17, B12 was 450, vitamin D 14.5, PAULA negative, Lyme disease negative DVT prophylaxis: SCDs Anticipated discharge date: Pending Clinical Course Anticipated discharge place: Pending Clinical Course This dictation was prepared using [employer] voice recognition software. Though every attempt is made to correct errors during dictation some may still e xist. Objective - Vital Signs Vital signs: Vital Signs Temp 97.9 F 06/20/23 08:00 Pulse 73 06/20/23 12:00 Resp 17 06/20/23 12:00 BP 103/70 06/20/23 12:00 Pulse Ox 96 06/20/23 12:00 FiO2 Intake & Output 06/19/23 06/20/23 06/20/23 18:59 06:59 18:59 Intake Total 478 236 Balance 478 236 Weight 70.76 kg Intake: Oral 478 236 Other: Voiding Method Toilet Toilet Toilet # Voids 1 1 - Labs CBC & Chem 7: 06/19/23 08:21 06/19/23 08:21 Labs: Abnormal Lab Results - Last 24 Hours (Table) 06/19/23 Range/Units 08:21 Vitamin B12 <150.0 L (200.0-944.0) pg/mL Vitamin D 25-Hydroxy 14.5 L (30.0-100.0) ng/mL
[2023-06-20] MEDS: CHOLECALCIFEROL 25 MCG (1000 IU) TABLET PO SCH (17:16)
[2023-06-20 18:31] LABS: Immunoglobulin M <35.0 mg/dL (40.0-280.0)
[2023-06-20] MEDS: PARoxetine 10 MG TAB PO SCH (20:44)
[2023-06-21] MEDS: SODIUM CHLORIDE 0.9% 1,000 ML IV SCH (05:10)
--- NOTE | 2023-06-21 07:52 | P.PN ---
Subjective Progress Note Date: 06/20/23 Patient was seen for a follow-up. Patient's mother was also present today. Patient states her condition is slightly worse, as the pins and needle sensation has progressed to above the knees bilaterally. Patient's mother believes that her walking was slightly more off today. Patient denies any symptoms in the fingers or upper extremities. No numbness of the truncal region, or problems with bowel or bladder control. Objective - Vital Signs Vital signs: Vital Signs Temp 97.9 F 06/20/23 08:00 Pulse 100 06/20/23 08:00 Resp 17 06/20/23 08:00 BP 116/70 06/20/23 08:00 Pulse Ox 98 06/20/23 09:19 FiO2 Intake & Output 06/19/23 06/20/23 06/20/23 18:59 06:59 18:59 Intake Total 478 118 Balance 478 118 Weight 70.76 kg Intake: Oral 478 118 Other: Voiding Method Toilet Toilet Toilet # Voids 1 1 - Exam Patient's mental status, speech and language functions are normal. Cranial nerves are normal. Muscle strength is normal. Deep tendon reflexes are (right/left) biceps 1+/1+, brachioradialis 1+2/1+2, triceps 2+/2+, knees trace with reinforcement/trace with reinforcement, ankles 0/0, plantar is up on the right, down left. Sensory decreased distally in the legs all the way to the knees. No ataxia in the upper limbs although patient is ataxic in the lower limbs. - Labs CBC & Chem 7: 06/19/23 08:21 06/19/23 08:21 Labs: Abnormal Lab Results - Last 24 Hours (Table) 06/19/23 06/19/23 Range/Units 08:21 08:21 Chloride 109 H (98-107) mmol/L Total Protein 6.2 L (6.3-8.2) g/dL Vitamin B12 <150.0 L (200.0-944.0) pg/mL Vitamin D 25-Hydroxy 14.5 L (30.0-100.0) ng/mL Assessment and Plan Assessment: * Acutely progressive paresthesias with pins and needle sensation in the feet extending to below knees bilaterally and lower limb ataxia, that has progressed over 4 days period of time. Examination reveals normal muscle strength, decreased sensation distally up to mid calves and ataxia of the lower extremities. Patient has fairly normal reflexes in the upper limbs, but absent reflexes in the lower limbs. Patient has been diagnosed with vitamin B12 deficiency. Guillain-Tong syndrome is in the differential, but less likely, given lack of any preceding upper respiratory infection, and also partly due to the time of the year (more common in spring season). * Anxiety, depression * Vapes Plan: * MRI of the lumbar spine with and without contrast is normal. No MRI correlate for the history of bilateral lower extremity weakness. I personally reviewed MRI agree with the findings. * MRI of the brain pending * B12 < 150, RBC folate 576, which is normal, TSH 3.25, CK 30, Lyme titer negative, PAULA negative, BEN 17 which is normal, ESR 5, CRP 0.6 which is also normal. Quantitative immunoglobulins shows normal IgG, IgA with decreased IgM <35. * Patient has been diagnosed with vitamin B12 deficiency. Patient will be started on vitamin B12 injections 1000 g IM daily and should be continued for 7 days, then once a week for 4 week and then twice a month. * We will check methylmalonic acid, parietal cell antibodies and vitamin B6. * Hold off on lumbar puncture, as the diagnosis is likely B12 deficiency. Await MRI of the brain. Patient and her mother agrees. * Observe overnight. Patient may need EMG and nerve conductions of lower limbs. * PT OT for gait training.
[2023-06-21] MEDS: CHOLECALCIFEROL 25 MCG (1000 IU) TABLET PO SCH (08:53)
[2023-06-21] MEDS: buPROPion XL 300 MG TAB.ER.24H PO SCH (08:53)
[2023-06-21] MEDS: CYANOCOBALAMIN 1,000 MCG/ML 1 ML VIAL IM SCH (08:53)
[2023-06-21 09:24] VITALS: TEMP 97.8
[2023-06-21 12:34] VITALS: BP 111/53; PULSE 70; RESP 18
--- NOTE | 2023-06-21 12:46 | P.PN ---
Subjective Progress Note Date: 06/21/23 I am seeing this patient in consultation today 06/19/2023 in the emergency room as there were concerns for ascending lower extremity weakness. Patient is a 22-year-old female past medical history significant for anxiety and depression. Patient reports lower extremity weakness and difficulty walking over the last 4 days. She does live in an apartment and has had trouble walking up the stairs. She reports that the lower extremity weakness is symmetrical and bilateral. There is associated tingling and numbness. She states that it is ascending, starting in the bottom of her feet and has moved up to her bilateral lower legs. Denies any recent illnesses. Denies any recent upper respiratory tract infection symptoms or infections GI symptoms. Denies any recent vaccinations. Denies trauma. Denies any significant back pain, however, she does state the symptoms did start to appear after "cracking" her back. No bowel or bladder incontinence. Straight leg raise negative. Patient's extremity strength while in bed is grade 4/5 bilaterally. No significant ataxia. Patellar DTRs are depressed bilaterally. On examination her gait is wobbly. Patient presented to a local urgent care clinic with these symptoms, and was directed to the emergency room. She is currently lying in bed, on room air, in no acute distress. Denies any respiratory difficulty. Her mother is at bedside. CBC and BMP on arrival were unremarkable. LFTs not elevated. Normal saline is infusing at 75 mL per hour. The patient appears hemodynamically stable. Respiratory function is not affected. Patient will be admitted to the cardiac stepdown unit. 06/20/2023, the patient is stable. Workup is in progress regarding the lower extremity weakness and absent reflexes. The patient underwent an MRI of the lumbar spinous came back essentially within normal limits. Awaiting MRI of the brain. Lumbar puncture is currently on standby. Sedimentation rate is at 5. Vitamin B12 level came back very low, less than 150, a started at 17, folate level is at 576. On today's evaluation of 06/21/2023, patient remains on vitamin B12 shots 1000 g IM on a daily basis. Some improvement in the numbness and tingling in lower extremities. MRI of the lumbar spine showed no acute abnormalities. MRI of the brain was negative. Patient remains on normal saline at rate of 75 mL an hour. No respiratory difficulties. The angiotensin-converting enzyme level was normal. TSH was normal. Folic acid level was normal. Antinuclear antibodies was negative. Lyme disease titers were negative. Objective - Vital Signs Vital signs: Vital Signs Temp 97.8 F 06/21/23 08:41 Pulse 74 06/21/23 08:41 Resp 16 06/21/23 08:41 BP 106/60 06/21/23 08:41 Pulse Ox 98 06/21/23 08:41 FiO2 Intake & Output 06/20/23 06/21/23 06/21/23 18:59 06:59 18:59 Intake Total 236 540 130 Balance 236 540 130 Intake: IV 10 Invasive Line 1 10 Oral 236 540 120 Other: Voiding Method Toilet Toilet Toilet # Voids 3 2 1 - Exam GENERAL EXAM: Alert, 22-year-old white female appearing stated age, comfortable in no apparent distress. HEAD: Normocephalic and atraumatic EYES: Normal reaction of pupils, equal size. NOSE: Clear with pink turbinates. THROAT: No erythema or exudates. NECK: No masses, no JVD. CHEST: No chest wall deformity. LUNGS: Equal air entry with no crackles, wheeze, rhonchi or dullness. On room air. SpO2 99%. Adequate lung/chest expansion. No conversational dyspnea or accessory muscle use.. CVS: S1 and S2 normal with no audible murmur, regular rhythm. No extra heart sounds ABDOMEN: No hepatosplenomegaly, active bowel sounds, no guarding or rigidity. SPINE: No scoliosis or deformity. No point tenderness. Straight leg test negative. SKIN: No rashes CENTRAL NERVOUS SYSTEM: Gait is abnormal. No significant ataxia. Patellar DTRs are depressed bilaterally. No significant facial weakness or speech difficulty. No ptosis. EXTREMITIES: There is no peripheral edema, clubbing, or cyanosis. Peripheral pulses are intact. Bilateral lower extremity strength grade 4/5. - Labs CBC & Chem 7: 06/19/23 08:21 06/19/23 08:21 Labs: Abnormal Lab Results - Last 24 Hours (Table) 06/20/23 Range/Units 12:11 IgM <35.0 L (40.0-280.0) mg/dL Assessment and Plan Assessment: Ascending bilateral symmetrical lower extremity weakness, questionable GBS. Consider also vitamin B12 deficiency induced peripheral neuropathy Vitamin B12 deficiency, rule out pernicious anemia Abnormalities of gait and mobility History of anxiety History of depression Plan: MRI of the brain is negative MRI of the lumbar spine is negative ANAs was negative Lyme disease titers were negative Total IgE level was normal Limited improvement Patient was started on IM vitamin B12 on a daily basis 100 g Lumbar puncture is currently on hold No signs of any respiratory insufficiency We'll continue to follow
--- NOTE | 2023-06-21 14:17 | P.PN ---
Subjective Progress Note Date: 06/21/23 Patient was seen for a follow-up. Patient's mother was also present today. Patient states she is able to move slightly better. The paresthesias has not progressed any further as it was progressing on a daily basis in the last few days. The pins and needle sensation stays up to just at the level of upper knee. Patient denies any symptoms in the fingers or upper extremities. No numbness of the truncal region, or problems with bowel or bladder control. Objective - Vital Signs Vital signs: Vital Signs Temp 97.8 F 06/21/23 08:41 Pulse 70 06/21/23 12:27 Resp 18 06/21/23 12:27 BP 111/53 06/21/23 12:27 Pulse Ox 97 06/21/23 12:27 FiO2 Intake & Output 06/20/23 06/21/23 06/21/23 18:59 06:59 18:59 Intake Total 236 540 490 Balance 236 540 490 Intake: IV 10 Invasive Line 1 10 Oral 236 540 480 Other: Voiding Method Toilet Toilet Toilet # Voids 3 2 1 - Exam Patient's mental status, speech and language functions are normal. Cranial nerves are normal. Muscle strength is normal. Deep tendon reflexes are (right/left) biceps 1+/1+, brachioradialis 1+2/1+2, triceps 2+/2+, knees trace with reinforcement/trace with reinforcement, ankles 0/0, plantar is up on the right, down left. Sensory decreased distally in the legs all the way to the knees. No ataxia in the upper limbs, although patient is ataxic in the lower limbs. - Labs CBC & Chem 7: 06/19/23 08:21 06/19/23 08:21 Labs: Abnormal Lab Results - Last 24 Hours (Table) 06/20/23 Range/Units 12:11 IgM <35.0 L (40.0-280.0) mg/dL Assessment and Plan Assessment: * Acutely progressive paresthesias with pins and needle sensation in the feet extending to below knees bilaterally and lower limb ataxia, that has progressed over 4 days period of time. Examination reveals normal muscle strength, decreased sensation distally up to mid calves and ataxia of the lower extremities. Patient has fairly normal reflexes in the upper limbs, but absent reflexes in the lower limbs. Patient has been diagnosed with vitamin B12 deficiency. Guillain-Tong syndrome is in the differential, but less likely, given lack of any preceding upper respiratory infection, and also partly due to the time of the year (more common in spring season). * Vitamin B12 deficiency * Vitamin D deficiency * Anxiety, depression * Vapes Plan: * Patient notices that she is able to move slightly better. Her paresthesias has not progressed any further. It appears patient does have vitamin B12 deficiency. Patient will be continued on vitamin B12 replacement as mentioned below. * MRI of the lumbar spine with and without contrast is normal. No MRI correlate for the history of bilateral lower extremity weakness. I personally reviewed MRI agree with the findings. * MRI of the brain with and without contrast normal. No evidence of [employer] demyelination. * B12 < 150, RBC folate 576, which is normal, TSH 3.25, CK 30, Lyme titer negative, PAULA negative, BEN 17 which is normal, ESR 5, CRP 0.6 which is also normal. Quantitative immunoglobulins shows normal IgG, IgA with decreased IgM <35. * Patient has been diagnosed with vitamin B12 deficiency. Patient will be started on vitamin B12 injections 1000 g IM daily and should be continued for 7 days, then once a week for 4 week and then twice a month. * Await methylmalonic acid, parietal cell antibodies and vitamin B6. * Hold off on lumbar puncture, as the diagnosis is likely B12 deficiency. * As patient is showing slight clinical improvement, we will clear for discharge. Patient may need EMG and nerve conductions of lower limbs. * Recommend neurological follow-up for close monitoring. Informed the family, that if symptoms progress, then may still need further workup including lumbar puncture and EMG. * Discussed with primary physician.
--- NOTE | 2023-06-21 15:17 | P.DS ---
Providers Date of admission: 06/18/23 21:14 Expected date of discharge: 06/21/23 Attending physician: Óscar Alston MD Consults: 06/18/23 21:11 Consult Physician Routine Consulting Provider: Li Singh Consult Reason/Comments: icu Do you want consulting provider notified?: Yes Consult Physician Routine Consulting Provider: Adam Ley Consult Reason/Comments: leg weakness Do you want consulting provider notified?: Yes Primary care physician: Phani Mccrary Hospital Course: Discharge Diagnosis: Vitamin B12 deficiency with myelopathy Bipolar disorder Hospital Course: Patient is a 22-year-old female with known history of anxiety, depression, and the use who presented to the emergency department due to progressive tingling and difficulty walking over the last several days. 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 Her laboratory analysis on admission to the ER here was essentially unremarkable. She was admitted for possible Guillain-Tong syndrome. Pulmonary was consulted and she had no signs of respiratory compromise. Neurology consulted and agrees with MRI Brain and L-spine concern for gullian-Purling. She underwent lumbar spine and brain MRI which were essentially unremarkable. She was found to have a vitamin B12 level of less than 150. She was started on vitamin B12 supplementation. She was determined stable for discharge home. Follow-up: Dr. Mccrary on 06/23 his previously scheduled, Dr. Everett as able, Dr. Larson as able. Vitamin B thousand micrograms daily IM for the next 5 days and then weekly for the next 3 weeks. She is aware of the importance of following up on correction of B12 levels. We discussed that if she is struggling at home still she could consider speaking with Dr. Mccrary about arranging outpatient physical therapy. Patient seen and examined at bedside with mother present. She wants to go e. She will have 24/ help from family support. She is aware of the need fr follow- up. Vital signs reviewed and stable. General: nontoxic, no distress, appears at stated age Cardiovascular: S1S2 reg, no murmur, positive posterior tibial pulse bilateral, Lungs: CTA bilateral, no rhonchi, no rales , no accessory muscle use Abdominal: soft, nontender to palpation, no guarding, no appreciable organomegaly Ext: no gross muscle atrophy, no edema b/l lower extremities, no contractures Neuro: CN II-XI grossly intact, no focal neuro deficits Psych: Alert, oriented, appropriate affect A total of 32 minutes of time were spent preparing this complex discharge summary. Patient was discharged on 06/21/23. This dictation was prepared using [employer] voice recognition software. Though every attempt is made to correct errors during dictation some may still exist. Patient Condition at Discharge: Stable Plan - Discharge Summary Discharge Rx Participant: Yes New Discharge Prescriptions: New Cyanocobalamin [Vitamin B-12 Injection] 1,000 mcg IM DIRECTED #10 ml Cholecalciferol [Vitamin D3 (25 Mcg = 1000 Iu)] 1,000 unit PO DAILY #30 tab Continue norgestimate-ethinyl estradioL [Lucy 0.25-0.035 mg Tablet] 1 tab PO DAILY Lumateperone Tosylate [Caplyta] 42 mg PO HS buPROPion XL [Wellbutrin XL] 300 mg PO DAILY PARoxetine HCL [Paxil] 10 mg PO HS Discharge Medication List Lumateperone Tosylate [Caplyta] 42 mg PO HS 06/18/23 [History] PARoxetine HCL [Paxil] 10 mg PO HS 06/18/23 [History] buPROPion XL [Wellbutrin XL] 300 mg PO DAILY 06/18/23 [History] norgestimate-ethinyl estradioL [Lucy 0.25-0.035 mg Tablet] 1 tab PO DAILY 06/18/23 [History] Cholecalciferol [Vitamin D3 (25 Mcg = 1000 Iu)] 1,000 unit PO DAILY #30 tab 06/21/23 [Rx] Cyanocobalamin [Vitamin B-12 Injection] 1,000 mcg IM DIRECTED #10 ml 06/21/23 [Rx] Follow up Appointment(s)/Referral(s): Phani Mccrary MD [Primary Care Provider] - 06/23/23 Mei Woodruff MD [STAFF PHYSICIAN] - 1 Week Marlena Nicholson MD [REFERRING] - 1 Week Patient Instructions/Handouts: Vitamin B12 Deficiency (GEN) Activity/Diet/Wound Care/Special Instructions: Activity: As tolerated, be careful not to fall. Please have someone with you when you are walking Diet: Regular Special Instructions: Please follow with Dr. Woodruff for further evaluation as to why you are not absorbing B12. Discharge Disposition: HOME SELF-CARE
[2023-06-24 16:05] LABS: Methylmalonic Acid >5.00 umol/L (<0.40)
[2023-06-25] MEDS ORDERED: PYRIDOXINE 50 MG TAB PO SCH (18:30)
== END 2023-06-21 15:25 | disposition home or self-care (01) | DRG 421 ==
LOC: EC 20:07 → 3SCARD 21:14
PROVIDERS: ADMIT Internal Medicine; ATTEND Internal Medicine
DX: E53.8 Deficiency of other specified B group vitamins (principal); G95.89 Other specified diseases of spinal cord; M43.00 Spondylolysis, site unspecified; E55.9 Vitamin D deficiency, unspecified; F17.290 Nicotine dependence, other tobacco product, uncomplicated; Z28.310 Unvaccinated for COVID-19; Z28.21 Immunization not carried out because of patient refusal; Z79.899 Other long term (current) drug therapy; Z82.0 Family history of epilepsy and other diseases of the nervous system; F31.9 Bipolar disorder, unspecified; F41.9 Anxiety disorder, unspecified; R26.2 Difficulty in walking, not elsewhere classified
CPT/HCPCS: 36415; 70553; 72158; 80053; 81003; 81025; 82164; 82306; 82550; 82607; 82746; 82747; 82784; 83516; 83605; 83690; 83735; 83921; 84100; 84207; 84443; 85025; 85610; 85652; 85730; 86038; 86140; 86618; 93005; 94760; 96360; 96361; 99291

== ENCOUNTER 2023-06-22 13:37 | Inpatient (IN) | payer OTHER ==
--- NOTE | 2023-06-22 13:57 | ED ---
General Adult HPI - General Chief complaint: Weakness Stated complaint: pins and needls legs hard time walking Time Seen by Provider: 06/22/23 13:40 Source: patient, family, RN/MD (I did speak with Dr. Hampton), EMS, RN notes reviewed Mode of arrival: ambulatory Limitations: no limitations - History of Present Illness Initial comments: Patient is a pleasant 22-year-old female presenting to the emergency department with concerns with difficulty walking. Onset of symptoms was 6 days ago. Patient was in the hospital and discharged yesterday. No change in symptoms since that time. Patient is using a walker. Patient did talk with neurologist who did recommend she comes back to the hospital. I did speak with Dr. hampton who would like patient admitted. He will schedule MRI of the thoracic spine and perform lumbar puncture. Patient denies any upper extremity weakness. No confusion. No visual changes. No speech problems. - Related Data Home Medications Medication Instructions Recorded Confirmed Lumateperone Tosylate [Caplyta] 42 mg PO HS 06/18/23 06/18/23 PARoxetine HCL [Paxil] 10 mg PO HS 06/18/23 06/18/23 buPROPion XL [Wellbutrin XL] 300 mg PO DAILY 06/18/23 06/18/23 norgestimate-ethinyl estradioL 1 tab PO DAILY 06/18/23 06/18/23 [Lucy 0.25-0.035 mg Tablet] Previous Rx's Medication Instructions Recorded Cholecalciferol [Vitamin D3 (25 1,000 unit PO DAILY #30 tab 06/21/23 Mcg = 1000 Iu)] Cyanocobalamin [Vitamin B-12 1,000 mcg IM DIRECTED #10 ml 06/21/23 Injection] Allergies Allergy/AdvReac Type Severity Reaction Status Date / Time No Known Allergies Allergy Verified 06/18/23 20:48 Review of Systems ROS Statement: Those systems with pertinent positive or pertinent negative responses have been documented in the HPI. ROS Other: All systems not noted in ROS Statement are negative. Constitutional: Denies: fever Eyes: Denies: eye pain ENT: Denies: throat pain Respiratory: Denies: cough, dyspnea Cardiovascular: Denies: chest pain Endocrine: Denies: fatigue Gastrointestinal: Denies: abdominal pain Genitourinary: Denies: dysuria Neurological: Reports: as per HPI, abnormal gait. Denies: headache, weakness, confusion Past Medical History Past Medical History: No Reported History History of Any Multi-Drug Resistant Organisms: None Reported Past Surgical History: No Surgical Hx Reported Past Psychological History: Anxiety, Bipolar, Depression Smoking Status: Current every day smoker, Vaper Past Alcohol Use History: None Reported Past Drug Use History: None Reported General Exam Limitations: no limitations General appearance: alert, in no apparent distress Head exam: Present: normocephalic Eye exam: Present: normal appearance, PERRL, EOMI. Absent: nystagmus ENT exam: Present: normal oropharynx Neck exam: Present: normal inspection. Absent: tenderness, meningismus Respiratory exam: Present: normal lung sounds bilaterally Cardiovascular Exam: Present: regular rate, normal rhythm GI/Abdominal exam: Present: soft. Absent: tenderness Extremities exam: Present: normal inspection, full ROM. Absent: tenderness Neurological exam: Present: alert, oriented X3, CN II-XII intact Expanded Neurological exam: Present: protecting the airway Speech: Present: fluid speech Cranial nerves: EOM's Intact: Normal Motor strength exam: RUE: 5, LUE: 5, RLE: 4, LLE: 4 DTR: Patellar (R): 1+, Patellar (L): 1+ Eye Response: (4) open spontaneously Motor Response: (6) obeys commands Verbal Response: (5) oriented Psychiatric exam: Present: normal affect, normal mood Skin exam: Present: normal color Course Vital Signs 06/22/23 13:42 Temperature 98.7 F Pulse Rate 101 H Respiratory 18 Rate Blood Pressure 112/75 O2 Sat by Pulse 98 Oximetry Medical Decision Making - Medical Decision Making Was pt. sent in by a medical professional or institution (, PA, PAINTER AND BODY MECHANIC APPRENTICE, urgent care, hospital, or assisted...) When possible be specific @ -Patient was sent in by Dr. Hampton Did you speak to anyone other than the patient for history (EMS, parent, family, police, friend...)? What history was obtained from this source @ -Family confirms history. In addition Dr. Hampton provided further history Did you review nursing and triage notes (agree or disagree)? Why? @ -I reviewed and agree with nursing and triage notes Were old charts reviewed (outside hosp., previous admission, EMS record, old EKG, old radiological studies, urgent care reports/EKG's, assisted records)? Report findings @ -Previous admission reviewed and blood work Differential Diagnosis (chest pain, altered mental status, abdominal pain women, abdominal pain men, vaginal bleeding, weakness, fever, dyspnea, syncope, headache, dizziness, GI bleed, back pain, seizure, CVA, palpatations, mental health, musculoskeletal)? @ -Differential Weakness: Hypoglycemia, shock, sepsis, hyponatremia, anemia, infection, TX, ETOH, adverse medicine reaction, overdose, stroke, this is not meant to be an all-inclusive list. EKG interpreted by me (3pts min.). @ -As above X-rays interpreted by me (1pt min.). @ -None done CT interpreted by me (1pt min.). @ -None done U/S interpreted by me (1pt. min.). @ -None done What testing was considered but not performed or refused? (CT, X-rays, U/S, labs)? Why? @ -None What meds were considered but not given or refused? Why? @ -None Did you discuss the management of the patient with other professionals (professionals i.e. , PA, PAINTER AND BODY MECHANIC APPRENTICE, lab, RT, psych nurse, social media intern, supervisor harvesting, teacher, military source operations officer, case finisher)? Give summary @ -Case was discussed with Dr. Hampton who would like patient admitted and we'll do a lumbar puncture and will order MRI. Case also discussed with Dr. Mendez who is familiar with this patient and will consult. Was smoking cessation discussed for >3mins.? @ -No Was critical care preformed (if so, how long)? @ -No Were there social determinants of health that impacted care today? How? (Homelessness, low income, unemployed, alcoholism, drug addiction, transportation, low edu. Level, literacy, decrease access to med. care, [place] [facility], rehab)? @ -No Was there de-escalation of care discussed even if they declined (Discuss DNR or withdrawal of care, Hospice)? DNR status @ -No What co-morbidities impacted this encounter? (DM, HTN, Smoking, COPD, CAD, Cancer, CVA, ARF, Chemo, Hep., AIDS, mental health diagnosis, sleep apnea, morbid obesity)? @ -None Was patient admitted / discharged? Hospital course, mention meds given and route, prescriptions, significant lab abnormalities, going to OR and other pertinent info. @ -Patient and family are made aware of plan. Admission orders written. Patient will be admitted. Neurology consult placed. Dr. Hampton notified patient in the emergency department. Undiagnosed new problem with uncertain prognosis? @ -No Drug Therapy requiring intensive monitoring for toxicity (Heparin, Nitro, Insulin, Cardizem)? @ -No Were any procedures done? @ -No Diagnosis/symptom? @ -Weakness Acute, or Chronic, or Acute on Chronic? @ -Acute Uncomplicated (without systemic symptoms) or Complicated (systemic symptoms)? @ -default Side effects of treatment? @ -No Exacerbation, Progression, or Severe Exacerbation? @ -No Poses a threat to life or bodily function? How? (Chest pain, [place], [place], pneumonia, PE, COPD, DKA, ARF, appy, cholecystitis, CVA, Diverticulitis, Homicidal, Suicidal, threat to staff... and all critical care pts) @ -No Disposition Clinical Impression: Bilateral leg weakness Disposition: ADMITTED IP TO THIS HOSP Is patient prescribed a controlled substance at d/c from ED?: No Referrals: Phani Mccrary MD [Primary Care Provider] - 1-2 days Time of Disposition: 14:01
[2023-06-22] MEDS ORDERED: NALOXONE 0.4 MG/ML 1 ML VIAL IV PRN (14:03)
[2023-06-22 14:26] LABS: ALT 17 U/L (4-34); AST 19 U/L (14-36); African American GFR (CKD) >90 (>60 ml/min/1.73 sqM); Albumin 4.1 g/dL (3.5-5.0); Alkaline Phosphatase 44 U/L (38-126); Anion Gap 8 mmol/L; Blood Urea Nitrogen 19 mg/dL (7-17); Calcium 9.8 mg/dL (8.4-10.2); Carbon Dioxide 25 mmol/L (22-30); Chloride 104 mmol/L (98-107); Creatine Kinase 57 U/L (30-135); Glucose 100 mg/dL (74-99); Magnesium 1.9 mg/dL (1.6-2.3); Non-African American GFR(CKD) >90 (>60 ml/min/1.73 sqM); Potassium 4.2 mmol/L (3.5-5.1); Sodium 137 mmol/L (137-145); Total Bilirubin 0.4 mg/dL (0.2-1.3); Total Protein 6.9 g/dL (6.3-8.2)
[2023-06-22 14:29] LABS: INR 0.9 (<1.2); Partial Thromboplastin Time 23.3 sec (22.0-30.0); Prothrombin Time 10.1 sec (10.0-12.5)
[2023-06-22 14:30] LABS: Appearance,Urine Clear (Clear); Bilirubin,Urine Negative (Negative); Blood,Urine Negative (Negative); Color,Urine Colorless; Glucose,Urine (UA) Negative (Negative); Ketones,Urine Negative (Negative); Leukocyte Esterase,Urine Negative (Negative); Nitrite,Urine Negative (Negative); Protein,Urine Negative (Negative); Urobilinogen,Urine <2.0 mg/dL (<2.0)
[2023-06-22 14:34] LABS: Basophils % (A) 0 %; Eosinophils # (A) 0.4 k/uL (0-0.7); Eosinophils % (A) 5 %; HCT 38.9 % (34.0-46.0); HGB 13.2 gm/dL (11.4-16.0); Lymphocytes # (A) 2.1 k/uL (1.0-4.8); Lymphocytes % (A) 27 %; MCH 32.1 pg (25.0-35.0); MCV 94.3 fL (80.0-100.0); Mean Platelet Volume 7.2; Monocytes # (A) 0.4 k/uL (0-1.0); Monocytes % (A) 5 %; Neutrophils # (A) 4.7 k/uL (1.3-7.7); Neutrophils % (A) 61 %; Platelet Count 328 k/uL (150-450); RBC 4.13 m/uL (3.80-5.40); WBC 7.8 k/uL (3.8-10.6)
[2023-06-22 14:43] LABS: T4, Free (Free Thyroxine) 1.01 ng/dL (0.78-2.19)
[2023-06-22] MEDS ORDERED: MELATONIN 3 MG TABLET PO PRN (15:30)
--- NOTE | 2023-06-22 15:38 | P.HPIM ---
History of Present Illness H&P Date: 06/22/23 Patient is a 22-year-old female with a history of fainting and use and bipolar disorder who was initially hospitalized here from 06/18 through 06/1823 for ataxia and lower extreme paresthesias. During that hospital stay she underwent an MRI brain and lumbar spine which were unremarkable with no cause of her paresthesias. Her vitamin B12 level was found to be less than 150 and her vitamin D was low. She was subsequently discharged home with vitamin B-12 supplementation. After discharge neurology reconsidered and felt she should have a lumbar puncture and asked her to return to the hospital. Initial vital signs are within normal limits. Initial laboratory analysis included CBC, coags, CMP, TSH, CK, and urinalysis which were essentially unremarkable. Patient was subsequently placed in observation for lumbar puncture. Neurology was consulted. Patient seen and examined at bedside with mother present. She reports no change in her symptoms since discharge from the hospital. She continues to have tingling and difficulty walking. She does have some discomfort in her rib cage after using her walker at home. Denies any fevers, chills, cough, cold, nausea, vomiting, or diarrhea. Vital signs reviewed General: nontoxic, no distress, appears at stated age Derm: warm, dry Cardiovascular: S1S2 reg, no murmur, positive posterior tibial pulse bilateral, no edema Lungs: clear to auscultation bilateral, no rhonchi, no rales, no wheeze, no accessory muscle use Ext: no gross muscle atrophy, no contractures Neuro: CN II-XII grossly intact, patient has dull sensation on the dorsum of both feet, sensation intact and the remainder of the lower extremities and she i s able to differentiate sharp from dull, some difficulty with [id number] bilaterally however she is able to perform this more rapidly than at her first admission, no difficulty with upper extremity movement Psych: Alert, oriented, appropriate affect Assessment/Plan: Bilateral lower extremity paresthesias with associated ataxia -MRI brain with and without contrast, MRI lumbar spine with and without contrast without any appreciable abnormalities - neurology consult: D/W Dr. Ley and preformed LP today, await results. Vitamin B12 deficiency -Vitamin B 12,000 g IM daily 3/7 days, then weekly 3-- has Rx at home Anxiety/depression - Wellbutrin 300 mg daily, Paxil 10 mg at night Imaging: As per HPI Data Review: As per HPI Patient placed in observation status for ataxia. Anticipated discharge date: Pending Clinical Course Anticipated discharge place: Pending Clinical Course This dictation was prepared using [email or web address] voice recognition software. Though every attempt is made to correct errors during dictation some may still exist. Past Medical History Additional Past Medical History / Comment(s): B12 deficiency, Bipolar disorder History of Any Multi-Drug Resistant Organisms: None Reported Past Surgical History: No Surgical Hx Reported Past Psychological History: Anxiety, Bipolar, Depression Smoking Status: Current every day smoker, Vaper Past Alcohol Use History: None Reported Past Drug Use History: None Reported Medications and Allergies Home Medications Medication Instructions Recorded Confirmed Type Lumateperone Tosylate [Caplyta] 42 mg PO HS 06/18/23 06/22/23 History PARoxetine HCL [Paxil] 10 mg PO HS 06/18/23 06/22/23 History buPROPion XL [Wellbutrin XL] 300 mg PO DAILY 06/18/23 06/22/23 History norgestimate-ethinyl estradioL 1 tab PO DAILY 06/18/23 06/22/23 History [Lucy 0.25-0.035 mg Tablet] Cholecalciferol [Vitamin D3 (25 1,000 unit PO DAILY #30 tab 06/21/23 06/22/23 Rx Mcg = 1000 Iu)] Cyanocobalamin [Vitamin B-12 1,000 mcg IM DIRECTED #10 ml 06/21/23 06/22/23 Rx Injection] Allergies Allergy/AdvReac Type Severity Reaction Status Date / Time No Known Allergies Allergy Verified 06/22/23 14:43 Physical Exam Osteopathic Statement: *. No significant issues noted on an osteopathic structural exam other than those noted in the History and Physical/Consult. Vitals: Vital Signs Temp Pulse Resp BP Pulse Ox 06/22/23 13:42 98.7 F 101 H 18 112/75 98 Intake and Output 06/22/23 06/22/23 06/22/23 06:59 14:59 22:59 Other: Weight 70.76 kg Results CBC & Chem 7: 06/22/23 13:55 06/22/23 13:55 Labs: Abnormal Lab Results - Last 24 Hours (Table) 06/22/23 Range/Units 13:55 BUN 19 H (7-17) mg/dL Glucose 100 H (74-99) mg/dL
[2023-06-22 17:16] LABS: Glucose,CSF 51 mg/dL (40-70); Total Protein,CSF 43 mg/dL (12-60)
[2023-06-22 17:33] LABS: Appearance,CSF Clear; CSF Tube Number 4
[2023-06-22 17:34] LABS: Red Blood Cell,CSF 7 u/L (0-10)
[2023-06-22] MEDS ORDERED: IMMUNE GLOBULIN (GAMMAGARD) 5 GM in EMPTY BAG 1 BAG IV ONE (20:00)
[2023-06-22] MEDS ORDERED: IMMUNE GLOBULIN (GAMMAGARD) 20 GM in EMPTY BAG 1 BAG IV ONE (20:00)
[2023-06-22] MEDS: NON FORMULARY DRUG (Lumateperone Tosylate [Caplyta] 42 MG Capsule) PO SCH (21:26)
[2023-06-22] MEDS: PARoxetine 10 MG TAB PO SCH (21:39)
--- NOTE | 2023-06-22 23:35 | P.PCN ---
Date of Procedure: 06/22/23 Preoperative Diagnosis: Guillain-Tong syndrome Postoperative Diagnosis: Guillain-Tong syndrome Procedure(s) Performed: Lumbar puncture Anesthesia: local Surgeon: Adam Ley Estimated Blood Loss (ml): 0 Condition: stable Disposition: other (Emergency room) Indications for Procedure: Possible Guillain-Tong syndrome Description of Procedure: Informed consent was obtained. Very detailed risks and benefits of the procedure, and the indication of procedure was explained to the patient in detail in the presence of nurse. Patient was informed of the risk of infection, bleeding, numbness, back pain, and the features of post spinal headache and the treatment. Patient was placed in the sitting position on the side of the bed. The procedure was performed under strict aseptic conditions. L4 lumbar space was identified and marked. Low back region was sterilized with ChloraPrep and then with Betadine, and anesthetized with 1% lidocaine. A spinal needle 21-gauge, 3.5 inch inserted at L4 lumbar space. I was able to enter subarachnoid space in 1 pass. The spinal fluid was slightly traumatic but cleared up by the third tube. About 10-11 mL of spinal fluid was collected in 4 tubes. Stylette was reintroduced, spinal needle withdrawn. Band-Aid applied. Patient was recommended to lay flat for half an hour. Patient tolerated the procedure very well.
[2023-06-22 23:49] LABS: Vitamin B12 >3600.0 pg/mL (200.0-944.0)
--- NOTE | 2023-06-22 23:53 | P.CNNES ---
History of Present Illness Consult date: 06/22/23 Requesting physician: Melvin Santos Reason for Consult: Weakness History of Present Illness: Patient is a 22-year-old female, who was just seen in the hospital on 06/19/2023 for acute onset of bilateral feet paresthesias with pins and needle sensation that started since 06/16/2023 and progressed from feet up to the knees bilaterally over 3 days period of time. Patient developed significant gait ataxia mainly with lower extremities bilaterally. Patient was found to have vitamin B12 deficiency, with B12 level < 150. Patient was started on vitamin B12 replacement with daily injections 1000 g IM. Patient's paresthesias did not progress, but she did not improve significantly. She only felt that she was able to move around slightly better. Patient denies any symptoms in the truncal region, or the upper extremities or head or neck region. Patient was sent home yesterday. This morning I called the patient's home inquiring about her condition. Patient told me that she is not better anymore. She is walking with a walker and her gait is very ataxic. She was recommended to return to the hospital for further evaluation including spinal tap to evaluate for possible Guillain-Tong syndrome. Patient's presentation was very acute over 3 days period of time, which is very unusual for B12 deficiency. It was suspected that patient probably has B12 deficiency, but not the main factor for her gait ataxia, and lower extremity paresthesias. Patient was requested to return to the hospital for further evaluation. Patient says that she feels very wobbly while walking and uses a walker. Even walking about 100 feet, she felt extremely exhausted and walks very slow. Patient is at baseline completely healthy. Review of Systems Significant for paresthesias in the lower limbs, ataxia. Patient denies any symptoms attributable to the cranial nerves, any chest pain or shortness of breath. She feels some soreness in the abdominal muscles from straining while walking. Denies any problems with bowel or bladder control. Denies any numbness of the perineal region. Past Medical History Past Medical History: No Reported History History of Any Multi-Drug Resistant Organisms: None Reported Past Surgical History: No Surgical Hx Reported Past Psychological History: Anxiety, Bipolar, Depression Smoking Status: Current every day smoker, Vaper Past Alcohol Use History: None Reported Past Drug Use History: None Reported - Past Family History Mother Additional Family Medical History / Comment(s): mothers aunt and cousin both tate ve MS Medications and Allergies Home Medications Medication Instructions Recorded Confirmed Type Lumateperone Tosylate [Caplyta] 42 mg PO HS 06/18/23 06/22/23 History PARoxetine HCL [Paxil] 10 mg PO HS 06/18/23 06/22/23 History buPROPion XL [Wellbutrin XL] 300 mg PO DAILY 06/18/23 06/22/23 History norgestimate-ethinyl estradioL 1 tab PO DAILY 06/18/23 06/22/23 History [Lucy 0.25-0.035 mg Tablet] Cholecalciferol [Vitamin D3 (25 1,000 unit PO DAILY #30 tab 06/21/23 06/22/23 Rx Mcg = 1000 Iu)] Cyanocobalamin [Vitamin B-12 1,000 mcg IM DIRECTED #10 ml 06/21/23 06/22/23 Rx Injection] Allergies Allergy/AdvReac Type Severity Reaction Status Date / Time No Known Allergies Allergy Verified 06/22/23 14:43 Physical Examination - Vital Signs Vital Signs: Vital Signs Temp Pulse Resp BP Pulse Ox 06/22/23 13:42 98.7 F 101 H 18 112/75 98 Intake and Output 06/22/23 06/22/23 06/22/23 06:59 14:59 22:59 Other: Weight 70.76 kg Patient is a young female, very pleasant, in no acute distress. Patient is alert awake oriented to time place and person. Speech and language functions are normal. Patient can name and repeat very well. No aphasia or dy sarthria. Attention, concentration and fund of knowledge is adequate. On cranial nerve examination, pupils are equal, round and reacting to light, visual brown are full on confrontation, with no neglect on double simultaneous stimulation. Extraocular muscles are intact with no nystagmus. Face is symmetric, tongue protrudes to the midline. Palatal elevation and sensation normal, hearing and shoulder shrug normal, facial sensation normal. On muscle strength testing, there is no pronator drift and the strength is normal in arms and legs distally and proximally. Deep tendon reflexes are symmetric, 1 at the biceps, 1 brachioradialis, 0 at the knees, 0 ankles and plantars are downgoing bilaterally. Sensory to touch is decreased from toes up to just above the knees bilaterally. Cerebellar function showed no ataxia for [id number] testing. No dysdiadochokinesia. Patient has severe ataxia for [id number] testing on either side. Tone and bulk of muscles normal. Gait patient walks with a sensory ataxic gait. Patient not able to walk without walker. On general examination, there is no carotid bruit or murmur, S1-S2 audible. Chest is clear on consultation. Abdomen is soft nontender. No organomegaly, bowel sounds present. Peripheral pulses are present. No peripheral edema. 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 Symptoms mainly involving the lower extremities. Patient has completely absent reflexes in the lower limbs. Her deep tendon reflexes in the upper extremities also seems to have reduced as compared to the previous examination. * Vitamin B12 deficiency, probably concurrent, but probably not the cause of presentation. Patient had acute presentation, which is extremely unlikely with B12 deficiency. * Anxiety, depression * Vapes Plan: * CSF was performed, which revealed CSF protein 43(12-60), glucose 51, WBC 0, RBC 7. Await MS panel, comprehensive virus detection, CSF BEN, myelin basic protein. * Pending MMA, B6, parietal cell antibodies from last admission. * We will check immune fixation electrophoresis, HIV, Sjogren's antibodies. Lyme titer negative. * I discussed with patient and her mother in detail about the CSF results. Sometimes, early in the course of Paige Tong, particularly in sensory variant, CSF proteins could be normal. She has not showed any significant improvement with B12 replacement. Patient will be started on IVIG 0.4 g per 2 g/kg per day for 5 consecutive days. * Patient and her mother were informed about the risks and benefits of IVIG. They consented for the treatment. * We will check MRI of the thoracic spine with and without contrast. * DVT prophylaxis: Lovenox 40 mg subcu daily. * Discussed with primary physician in detail. * Dr. Dakota Allison Will resume neurology service in the morning. * Thank you for the consult. Time with Patient: Greater than 30
[2023-06-23] MEDS: buPROPion XL 300 MG TAB.ER.24H PO SCH (08:31)
[2023-06-23] MEDS: ENOXAPARIN 40 MG/0.4 ML SYRINGE SQ SCH (08:31)
[2023-06-23] MEDS: CHOLECALCIFEROL 25 MCG (1000 IU) TABLET PO SCH (08:31)
[2023-06-23] MEDS: CYANOCOBALAMIN 1,000 MCG/ML 1 ML VIAL IM SCH (10:01)
[2023-06-23] MEDS: LORazepam 2 MG/ML INJ IV PRN (14:42)
--- NOTE | 2023-06-23 14:59 | P.PN ---
Subjective Progress Note Date: 06/23/23 Patient is a 22-year-old female with a history of fainting and use and bipolar disorder who was initially hospitalized here from 06/18 through 06/1823 for ataxia and lower extreme paresthesias. During that hospital stay she underwent an MRI brain and lumbar spine which were unremarkable with no cause of her paresthesias. Her vitamin B12 level was found to be less than 150 and her vitamin D was low. She was subsequently discharged home with vitamin B-12 supplementation. After discharge neurology reconsidered and felt she should have a lumbar puncture and asked her to return to the hospital. Initial vital signs are within normal limits. Initial laboratory analysis included CBC, coags, CMP, TSH, CK, and urinalysis which were essentially unremarkable. Patient was subsequently placed in observation for lumbar puncture. Neurology was consulted. 06/23 Patient was seen and examined. Mother at bedside. Patient reports persistent paresthesias to just above her knee bilaterally. No shortness of breath or difficulty breathing. Reports constipation. Discussed with Dr. Allison, continue with IVIG. I changes the MRI ordered from L spine which was previously done to C and T spine. LP is unremarkable to still unable to exclude GBS per Dr. Allison. Vital signs reviewed General: nontoxic, no distress, appears at stated age Derm: warm, dry Cardiovascular: good distal perfusion in all 4 extremities, no edema Lungs: breathing comfortably, no accessory muscle use Ext: no gross muscle atrophy, no contractures Neuro: Decreased sensation to touch bilateral LE up to above the knee. Strength 5/5 bilateral LE. Psych: Alert, oriented, appropriate affect Bilateral lower extremity paresthesias with associated ataxia Vitamin B12 deficiency Anxiety and Depression Based on my assessment of this patient, this patient meets a high complexity level of care. Patient has an acute diagnosis of bilateral lower extremity paresthesias with concerns for GBS that poses a threat to life or bodily function. Bilateral lower extremity paresthesias with associated ataxia: Continue IVIG. Discussed with Dr. Allison as above. MRI C and T spine ordered. Vitamin B12 deficiency: Vitamin B 12,000 g IM daily 3/7 days, then weekly 3, she has Rx at home Anxiety and Depression: Wellbutrin 300 mg daily, Paxil 10 mg at night CODE STATUS: FULL CODE DVT Prophylaxis: Lovenox SQ GI Prophylaxis: Designated medical POA if patient is not able to make medical decisions for themselves: Mother I have reviewed the following product safety consultant notes: I have reviewed the results of the following tests: LP results I have ordered the following tests: MRI C, T spine I have discussed the care of this patient with the following independent historian: Discussed with RN, mother. I have independently interpreted the following test below: I have discussed the management of this patient with the following physician: Dr. Allison as above. Objective - Vital Signs Vital signs: Vital Signs Temp 97.9 F 06/23/23 13:54 Pulse 93 06/23/23 13:54 Resp 19 06/23/23 13:54 BP 118/76 06/23/23 13:54 Pulse Ox 98 06/23/23 13:54 FiO2 Intake & Output 06/22/23 06/23/23 06/23/23 18:59 06:59 18:59 Intake Total 97.501 Balance 97.501 Weight 70.76 kg Intake: Intake, IV Titration 97.501 Amount Immune Globulin ( 82.334 Gammagard) 20 gm In Empty Bag 1 bag @ Per Protocol IV .Q0M ONE Rx#: [id number] Immune Globulin ( 15.167 Gammagard) 5 gm In Empty Bag 1 bag @ Titrate IV . Q0M ONE Rx#:[id number] Other: # Voids 3 - Labs CBC & Chem 7: 06/22/23 13:55 06/22/23 13:55 Labs: Abnormal Lab Results - Last 24 Hours (Table) 06/22/23 Range/Units 13:55 Vitamin B12 >3600.0 H (200.0-944.0) pg/mL Microbiology - Last 24 Hours (Table) 06/22/23 15:20 CSF Gram Stain - Preliminary Cerebral Spinal Fluid
--- NOTE | 2023-06-23 15:53 | P.PN ---
Subjective Progress Note Date: 06/23/23 I am seeing the patient for the first time during this admission. Please refer to Dr. ley's notes for further details. Patient is accompanied with her mother was at bedside. Seems of the patient since last Friday has been having the prickling sensation of the feet that's been ascending up progressively worsening up to her knees she feels unsteady walk-in. She denies of any recent fevers, any sick contacts, any recent diarrhea or vomiting. Denies any similar presentation like this. Before that. Denies of any visual disturbance, difficulty swallowing the. She has history of anxiety and bipolar and the she on medication and last started new medication was Caplyta for bipolar about 6 months ago. She denies off any illicit drug use or alcohol use. According to the mother the patient is healthy. She had MRI of the brain and the lumbar which were unremarkable. She had at the CSF study which was also unremarkable. Seems that the patient had vitamin B12 deficiency was found out on her prior admission and received 3 doses of IM of vitamin B12 then the was discharged then the she was asked to breathe brought back for further evaluation and treatment by Dr. Ley. Patient had a CSF study and it was normal. She was started on IVIG by Dr. Rodriguez yesterday for concern for GBS yesterday was her first dose. Patient denies of any recent GI surgeries or bypasses. Objective - Vital Signs Vital signs: Vital Signs Temp 97.9 F 06/23/23 13:54 Pulse 93 06/23/23 13:54 Resp 19 06/23/23 13:54 BP 118/76 06/23/23 13:54 Pulse Ox 98 06/23/23 13:54 FiO2 Intake & Output 06/22/23 06/23/23 06/23/23 18:59 06:59 18:59 Intake Total 97.501 Balance 97.501 Weight 70.76 kg Intake: Intake, IV Titration 97.501 Amount Immune Globulin ( 82.334 Gammagard) 20 gm In Empty Bag 1 bag @ Per Protocol IV .Q0M ONE Rx#: [id number] Immune Globulin ( 15.167 Gammagard) 5 gm In Empty Bag 1 bag @ Titrate IV . Q0M ONE Rx#:[id number] Other: # Voids 3 - Exam GENERAL: The patient is lying in bed and is not in acute distress. NEUROLOGICAL: Higher mental function: The patient is awake, alert, oriented to self, place and time. Patient is following commands. No aphasia and no neglect. Cranial nerves: The pupils are round, equal and reactive to light and accommodat ion. Visual brown are full to confrontation throughout. Extraocular movement is intact no nystagmus is noted. Facial sensation is normal to touch throughout. The facial strength is normal throughout. Hearing is normal bilaterally to hand rub. Tongue is midline and moved [id number] without any difficulty. No dysarthria is noted. Shoulder shrug is normal bilaterally. Motor: The strength is bilateral calf are 5- bilaterally. Otherwise 5 over 5 throughout. Normal tone and bulk. Cerebellum: Normal finger to nose but ataxia heel to ward bilaterally. . Sensation: Sensation is decreased to touch below the knees bilaterally. Reflexes (right/left): Biceps 2+; triceps1+; brachioradialis 2+ ; patellar 0; ankles 0. Plantars are downgoing bilaterally. - Labs CBC & Chem 7: 06/22/23 13:55 06/22/23 13:55 Labs: Abnormal Lab Results - Last 24 Hours (Table) 06/22/23 Range/Units 13:55 Vitamin B12 >3600.0 H (200.0-944.0) pg/mL Microbiology - Last 24 Hours (Table) 06/22/23 15:20 CSF Gram Stain - Preliminary Cerebral Spinal Fluid Assessment and Plan Assessment: This is a 22-year-old woman who has been having appears to show bilateral feet since 06/16/2023 and progressively getting worse up to the knees and she has ataxia in the lowers. She was found to have vitamin B12 deficiency with a B12 less than 150 and received vitamin B-12 1000 g IM supplement. She had MRI of the brain and the lumbar spine which were unknown unremarkable. Was felt by Dr. Ley the patient had the possible GBS and had the CSF study which was unremarkable. He denies off any recent fevers, G upper GI or or lower GI symptoms. On examination she has areflexia in the lowers and hypo-reflexia and some of the uppers. She also has ataxia in the lowers bilaterally. She is not a vegan. Ataxia of the lowers with paresthesia of the feet progress and up to the knees with areflexia in the lowers and subcu hyporeflexia reflexia in the uppers: Unsure exactly etiology about possibly due to vitamin B12 deficiency causing sensory/ataxic peripheral neuropathy. Cannot rule out GBS. Recent diagnosis of vitamin B12 deficiency and he received vitamin B12 IM supplement and her vitamin B-12 level is a supratherapeutic. Vitamin D deficiency Marijuana use. History of anxiety and bipolar. Plan: * CSF was performed, which revealed CSF protein 43(12-60), glucose 51, WBC 0, RBC 7. Await MS panel, comprehensive virus detection, CSF BEN, myelin basic protein. * Pending MMA, B6, parietal cell antibodies from last admission. * Pending immune fixation electrophoresis, HIV, Sjogren's antibodies. Lyme titer negative. * I ordered copper level mercury level, thiamine level, EBV, CMV,rpr, vitamin E level and nitrous oxide. * TSH is 1.590, repeat vitamin B-12 is more than 3600. Calcium is 9.8, magnesium is 1.9, AST ALT is within normal limits at. CK level is 57 normal. Sodium is 137. ESR is 5. BEN is 17 (normal). * Lyme is negative, PAULA is negative. * Dr. Ley started her on IVIG 0.4 g per 2 g/kg per day for 5 consecutive days and was started on 06/22/23. * We'll obtain MRI of the thoracic and cervical spine w/ and w/o. * She is on vitamin B12 1000 g IM daily. For now recommend IM for 7 days in total then after that weekly for 4 weeks then monthly after that. * She is on vitamin D supplement * I consulted PT and OT for gait training. * DVT prophylaxis: Lovenox 40 mg subcu daily. * Recommended the patient to obtain EMG with nerve conduction study of the lowers then uppers as outpatient. * Discussed with patient, her mother who is at bedside and primary physician in detail. Time with Patient: Less than 30
--- NOTE | 2023-06-23 16:41 | MR ---
EXAMINATION TYPE: MR thoracic spine wo/w con DATE OF EXAM: 06/23/2023 4:14 PM CLINICAL INDICATION:Female, 22 years old with history of paresthesia; COMPARISON: None TECHNIQUE: Multi planar, multi sequence imaging was performed utilizing: T1-weighted, short-tau inver mehul recovery and T2-weighted of the thoracic spine. IV Contrast: 7 cc Gadavist (none if empty) FINDINGS: Alignment: Alignment is within normal limits. Vertebral bodies have preserved heights. Spinal cord: Spinal cord is within normal limits for signal. No abnormal postcontrast enhancement. Discs: Intervertebral disc signal is maintained. No evidence of significant spinal canal or neural fo raminal stenosis. There is no evidence of extradural defects or central spinal canal narrowing at any thoracic vertebral body level Osseous structures: No abnormal bony edema on inversion recovery sequences. No abnormal postcontrast enhancement. IMPRESSION: Motion limited exam without evidence for significant spinal canal or neural foraminal stenosis. No ab normal postcontrast enhancement.
[2023-06-23] MEDS: polyethylene glycoL 3350 17 GM POWD.PACK PO SCH (17:11)
[2023-06-23] MEDS ORDERED: IMMUNE GLOBULIN (GAMMAGARD) 20 GM in EMPTY BAG 1 BAG IV ONE (20:00)
[2023-06-23] MEDS ORDERED: IMMUNE GLOBULIN (GAMMAGARD) 5 GM in EMPTY BAG 1 BAG IV ONE (20:00)
[2023-06-23] MEDS: NON FORMULARY DRUG (Lumateperone Tosylate [Caplyta] 42 MG Capsule) PO SCH (21:38)
[2023-06-23] MEDS: PARoxetine 10 MG TAB PO SCH (21:38)
[2023-06-24 04:59] LABS: EBV-EA (IgG) 0.7 AI; EBV-EBNA(IgG) >8.0; EBV-VCA (IgG) >8.0 AI; EBV-VCA (IgM) 0.5 AI
[2023-06-24] MEDS: CHOLECALCIFEROL 25 MCG (1000 IU) TABLET PO SCH (08:14)
[2023-06-24] MEDS: ENOXAPARIN 40 MG/0.4 ML SYRINGE SQ SCH (08:14)
[2023-06-24] MEDS: polyethylene glycoL 3350 17 GM POWD.PACK PO SCH (08:14)
[2023-06-24] MEDS: buPROPion XL 300 MG TAB.ER.24H PO SCH (08:14)
[2023-06-24] MEDS: CYANOCOBALAMIN 1,000 MCG/ML 1 ML VIAL IM SCH (10:12)
--- NOTE | 2023-06-24 10:36 | P.PN ---
Subjective Progress Note Date: 06/24/23 Patient is a 22-year-old female with a history of fainting and use and bipolar disorder who was initially hospitalized here from 06/18 through 06/1823 for ataxia and lower extreme paresthesias. During that hospital stay she underwent an MRI brain and lumbar spine which were unremarkable with no cause of her paresthesias. Her vitamin B12 level was found to be less than 150 and her vitamin D was low. She was subsequently discharged home with vitamin B-12 supplementation. After discharge neurology reconsidered and felt she should have a lumbar puncture and asked her to return to the hospital. Initial vital signs are within normal limits. Initial laboratory analysis included CBC, coags, CMP, TSH, CK, and urinalysis which were essentially unremarkable. Patient was subsequently placed in observation for lumbar puncture. Neurology was consulted. 06/23 Patient was seen and examined. Mother at bedside. Patient reports persistent paresthesias to just above her knee bilaterally. No shortness of breath or difficulty breathing. Reports constipation. Discussed with Dr. Allison, continue with IVIG. I changes the MRI ordered from L spine which was previously done to C and T spine. LP is unremarkable to still unable to exclude GBS per Dr. Allison. 06/24 Patient was seen and examined. No changes in clinical condition. Sleeping comfortably. Currently on IVIG infusions. MRI T spine negative. Vitamin B12 > 30956, TSH 1.59, CPK 57, CMV and EBV IgG +, PAULA negative. Immunoglobulin screen negative. Lyme negative. Treponema Ab negative. Vital signs reviewed General: nontoxic, no distress, appears at stated age Derm: warm, dry Cardiovascular: good distal perfusion in all 4 extremities, no edema Lungs: breathing comfortably, no accessory muscle use Ext: no gross muscle atrophy, no contractures Neuro: Spontaneously moving all 4 extremities while sleeping Psych: Alert, oriented, appropriate affect Bilateral lower extremity paresthesias with associated ataxia Vitamin B12 deficiency Anxiety and Depression Based on my assessment of this patient, this patient meets a high complexity level of care. Patient has an acute diagnosis of bilateral lower extremity paresthesias with concerns for GBS that poses a threat to life or bodily function. Bilateral lower extremity paresthesias with associated ataxia: Continue IVIG. Discussed with Dr. Allison as above. Vitamin B12 deficiency: Vitamin B 12,000 g IM daily 3/7 days, then weekly 3, she has Rx at home Anxiety and Depression: Wellbutrin 300 mg daily, Paxil 10 mg at night CODE STATUS: FULL CODE DVT Prophylaxis: Lovenox SQ GI Prophylaxis: Designated medical POA if patient is not able to make medical decisions for themselves: Mother I have reviewed the following hr shared services consultant notes: Neurology note. I have reviewed the results of the following tests: MRI T and C spine. B12. TSH. CPK. CMV. EBV. PAULA. Immunoglobulin. Lyme. Treponema Ab. I have ordered the following tests: I have discussed the care of this patient with the following independent historian: Discussed with mother, case management. I have independently interpreted the following test below: I have discussed the management of this patient with the following physician: Dr. Allison as above. Objective - Vital Signs Vital signs: Vital Signs Temp 97.6 F 06/24/23 07:10 Pulse 68 06/24/23 07:10 Resp 18 06/24/23 07:10 BP 102/67 06/24/23 07:10 Pulse Ox 99 06/24/23 07:10 FiO2 Intake & Output 06/23/23 06/24/23 06/24/23 18:59 06:59 18:59 Intake Total 276.850 Balance 276.850 Weight 64 kg Intake: Intake, IV Titration 276.850 Amount Immune Globulin ( 13.067 Gammagard) 20 gm In Empty Bag 1 bag @ Per Protocol IV .Q0M ONE Rx#: [id number] Immune Globulin ( 200 Gammagard) 20 gm In Empty Bag 1 bag @ Per Protocol IV .Q0M ONE Rx#: [id number] Immune Globulin ( 13.783 Gammagard) 5 gm In Empty Bag 1 bag @ Titrate IV . Q0M ONE Rx#:[id number] Immune Globulin ( 50 Gammagard) 5 gm In Empty Bag 1 bag @ Titrate IV . Q0M ONE Rx#:[id number] Other: # Voids 5 1 # Bowel Movements 1 - Labs CBC & Chem 7: 06/22/23 13:55 06/22/23 13:55 Labs: Abnormal Lab Results - Last 24 Hours (Table) 06/23/23 06/23/23 Range/Units 17:40 17:40 CMV IgG Ab Reactive A (Non-Reactive) EBV Capsid Ag IgG Intrp Positive A (Negative) EBV Nuc Ag IgG Interp Positive A (Negative) Microbiology - Last 24 Hours (Table) 06/22/23 15:20 CSF Gram Stain - Preliminary Cerebral Spinal Fluid
[2023-06-24] MEDS: ACETAMINOPHEN TAB 325 MG TAB PO PRN ×2 (13:21→23:12)
[2023-06-24] MEDS: LORazepam 2 MG/ML INJ IV PRN (13:22)
[2023-06-24 14:02] LABS: Immunoglobulin M 41.1 mg/dL (40.0-280.0)
[2023-06-24 14:30] LABS: Nucleated Cells, CSF 0 u/L (0-5)
[2023-06-24] MEDS: HYDROcodone/APAP 5-325MG 1 EACH TAB PO PRN (16:09)
--- NOTE | 2023-06-24 17:09 | P.PN ---
Subjective Progress Note Date: 06/24/23 I am following-up with patient and she states she feels slightly better today compared to yesterday. She is not a vegetarian but states does not consume enough meat and diet is not best. Objective - Vital Signs Vital signs: Vital Signs Temp 98.1 F 06/24/23 13:28 Pulse 98 06/24/23 13:28 Resp 17 06/24/23 13:28 BP 136/65 06/24/23 13:28 Pulse Ox 98 06/24/23 13:28 FiO2 Intake & Output 06/23/23 06/24/23 06/24/23 18:59 06:59 18:59 Intake Total 276.850 Balance 276.850 Weight 64 kg Intake: Intake, IV Titration 276.850 Amount Immune Globulin ( 13.067 Gammagard) 20 gm In Empty Bag 1 bag @ Per Protocol IV .Q0M ONE Rx#: [id number] Immune Globulin ( 200 Gammagard) 20 gm In Empty Bag 1 bag @ Per Protocol IV .Q0M ONE Rx#: [id number] Immune Globulin ( 13.783 Gammagard) 5 gm In Empty Bag 1 bag @ Titrate IV . Q0M ONE Rx#:[id number] Immune Globulin ( 50 Gammagard) 5 gm In Empty Bag 1 bag @ Titrate IV . Q0M ONE Rx#:[id number] Other: # Voids 5 1 # Bowel Movements 1 - Exam GENERAL: The patient is lying in bed and is not in acute distress. NEUROLOGICAL: Higher mental function: The patient is awake, alert, oriented to self, place and time. Patient is following commands. No aphasia and no neglect. Cranial nerves: The pupils are round, equal and reactive to light and accommodat ion. Visual brown are full to confrontation throughout. Extraocular movement is intact no nystagmus is noted. Facial sensation is normal to touch throughout. The facial strength is normal throughout. Hearing is normal bilaterally to hand rub. Tongue is midline and moved [id number] without any difficulty. No dysarthria is noted. Shoulder shrug is normal bilaterally. Motor: Gait is unsteady. The strength is bilateral calf are 5- bilaterally. Otherwise 5 over 5 throughout. Normal tone and bulk. Cerebellum: Normal finger to nose but ataxia heel to ward bilaterally. . Sensation: Sensation is decreased to touch below the knees bilaterally. Reflexes (right/left): Biceps 2+; triceps1+; brachioradialis 2+ ; patellar 0; ankles 0. Plantars are downgoing bilaterally. - Labs CBC & Chem 7: 06/22/23 13:55 06/22/23 13:55 Labs: Abnormal Lab Results - Last 24 Hours (Table) 06/23/23 06/23/23 06/24/23 Range/Units 17:40 17:40 06:55 IgG 2130.0 H (700.0-1600.0) mg/dL CMV IgG Ab Reactive A (Non-Reactive) EBV Capsid Ag IgG Intrp Positive A (Negative) EBV Nuc Ag IgG Interp Positive A (Negative) Assessment and Plan Assessment: This is a 22-year-old woman who has been having appears to show bilateral feet since 06/16/2023 and progressively getting worse up to the knees and she has ataxia in the lowers. She was found to have vitamin B12 deficiency with a B12 less than 150 and received vitamin B-12 1000 g IM supplement. She had MRI of the brain and the lumbar spine which were unknown unremarkable. Was felt by Dr. Ley the patient had the possible GBS and had the CSF study which was unremarkable. He denies off any recent fevers, G upper GI or or lower GI symptoms. On examination she has areflexia in the lowers and hypo-reflexia and some of the uppers. She also has ataxia in the lowers bilaterally. She is not a vegetarian but does not feels she consume a lot of meat and feels diet is off. Ataxia of the lowers with paresthesia of the feet progress and up to the knees with areflexia in the lowers and subcu hyporeflexia reflexia in the uppers: Unsure exactly etiology about possibly due to vitamin B12 deficiency causing sensory/ataxic peripheral neuropathy. Cannot rule out GBS. Recent diagnosis of vitamin B12 deficiency and he received vitamin B12 IM supplement and her vitamin B-12 level is a supratherapeutic. Vitamin D deficiency Marijuana use. History of anxiety and bipolar. Plan: * CSF was performed, which revealed CSF protein 43(12-60), glucose 51, WBC 0, RBC 7. Await MS panel, comprehensive virus detection, CSF BEN, myelin basic protein. * Vitamin B12 on 06/19/23 is <150 (normal is 200-944) and repeat on 06/22/23 is >3600. MMA: >5 (normal <0.40). * MRI Brain and Lumbar and thoracic is unremarkable. * Pending B6, parietal cell antibodies from last admission. * Pending immune fixation electrophoresis, HIV, Sjogren's antibodies. Lyme titer negative. * Copper level: 1922 * mercury level, EBV postive IgG, CMV is non reactive ,rpr non reactive * Pending vitamin E level, thiamine and nitrous oxide. * TSH is 1.590, repeat vitamin B-12 is more than 3600. Calcium is 9.8, magnesium is 1.9, AST ALT is within normal limits at. CK level is 57 normal. Sodium is 137. ESR is 5. BEN is 17 (normal). * Lyme is negative, PAULA is negative. * Dr. Ley started her on IVIG 0.4 g per 2 g/kg per day for 5 consecutive days and was started on 06/22/23. * Pending MRI C-spine. * She is on vitamin B12 1000 g IM daily. For now recommend IM for 7 days in total then after that weekly for 4 weeks then monthly after that. * She is on vitamin D supplement * I consulted PT and OT for gait training. * DVT prophylaxis: Lovenox 40 mg subcu daily. * Recommended the patient to obtain EMG with nerve conduction study of the lowers then uppers as outpatient. * Discussed with patient, her mother who is at bedside. Time with Patient: Less than 30
--- NOTE | 2023-06-24 19:05 | MR ---
EXAMINATION TYPE: MR cervical spine wo/w con DATE OF EXAM: 06/24/2023 2:49 PM CLINICAL INDICATION:Female, 22 years old with history of paresthesia, Paresthesia COMPARISON: None. TECHNIQUE: Multi planar, multi sequence imaging was performed utilizing: T1-weighted, T2-weighted, an d turbo inversion recovery imaging of the cervical spine. IV Contrast: 7 cc Gadavist (none if empty) FINDINGS: Alignment: The cervical vertebral bodies have preserved heights. Alignment is within normal limits gi briseida patient positioning. Bones: Bone signal is within normal limits. No abnormal bone marrow edema on inversion recovery seque nces. No abnormal postcontrast enhancement. Cord: The spinal cord is unremarkable with regards to their signal intensity and morphology. No abnor mal postcontrast enhancement. Discs: Intervertebral disc signal is maintained. C2-C3: No significant disc pathology. The spinal canal is patent. No neural foraminal stenosis. C3-C4: No significant disc pathology. The spinal canal is patent. No neural foraminal stenosis. C4-C5: No significant disc pathology. The spinal canal is patent. No neural foraminal stenosis. C5-C6: No significant disc pathology. The spinal canal is patent. No neural foraminal stenosis. C6-C7: No significant disc pathology. The spinal canal is patent. No neural foraminal stenosis. C7-T1: No significant disc pathology. The spinal canal is patent. No neural foraminal stenosis. Other: None. IMPRESSION: 1. No evidence for disc herniation or significant spinal canal stenosis. No abnormal postcontrast enh ancement. 2. No significant disc degeneration with associated osteoarthritic changes.
[2023-06-24 19:06] LABS: HIV 2 AB Non-Reactive (Non-Reactive); HIV AB P24 Non-Reactive (Non-Reactive); HIV P24 AG Non-Reactive (Non-Reactive)
[2023-06-24] MEDS ORDERED: IMMUNE GLOBULIN (GAMMAGARD) 20 GM in EMPTY BAG 1 BAG IV ONE (20:00)
[2023-06-24] MEDS ORDERED: IMMUNE GLOBULIN (GAMMAGARD) 5 GM in EMPTY BAG 1 BAG IV ONE (20:00)
[2023-06-24] MEDS ORDERED: IBUPROFEN 400 MG TAB PO STA (20:04)
[2023-06-25] MEDS ORDERED: ONDANSETRON 4 MG/2 ML VIAL IVP STA (00:02)
[2023-06-25] MEDS: PARoxetine 10 MG TAB PO SCH ×2 (00:59→20:59)
[2023-06-25] MEDS: NON FORMULARY DRUG (Lumateperone Tosylate [Caplyta] 42 MG Capsule) PO SCH (00:59)
[2023-06-25] MEDS: polyethylene glycoL 3350 17 GM POWD.PACK PO SCH (09:30)
[2023-06-25] MEDS: buPROPion XL 300 MG TAB.ER.24H PO SCH (09:30)
[2023-06-25] MEDS: CHOLECALCIFEROL 25 MCG (1000 IU) TABLET PO SCH (09:30)
[2023-06-25] MEDS: ENOXAPARIN 40 MG/0.4 ML SYRINGE SQ SCH (09:30)
[2023-06-25] MEDS: CYANOCOBALAMIN 1,000 MCG/ML 1 ML VIAL IM SCH (09:31)
[2023-06-25] MEDS: HYDROcodone/APAP 5-325MG 1 EACH TAB PO PRN (09:38)
[2023-06-25 11:00] LABS: African American GFR (CKD) >90 (>60 ml/min/1.73 sqM); Anion Gap 13 mmol/L; Blood Urea Nitrogen 17 mg/dL (7-17); Calcium 9.5 mg/dL (8.4-10.2); Carbon Dioxide 24 mmol/L (22-30); Chloride 98 mmol/L (98-107); Glucose 137 mg/dL (74-99); Non-African American GFR(CKD) >90 (>60 ml/min/1.73 sqM); Potassium 3.9 mmol/L (3.5-5.1); Sodium 135 mmol/L (137-145)
[2023-06-25 11:03] LABS: HCT 37.5 % (34.0-46.0); HGB 12.7 gm/dL (11.4-16.0); MCHC 33.8 g/dL (31.0-37.0); MCV 94.6 fL (80.0-100.0); Mean Platelet Volume 8.1; Platelet Count 251 k/uL (150-450); RBC 3.97 m/uL (3.80-5.40); RDW 14.9 % (11.5-15.5); WBC 7.4 k/uL (3.8-10.6)
[2023-06-25 13:23] LABS: Vit B1(Thiamine) 74 ug/L (38-122)
[2023-06-25 13:46] VITALS: RESP 18
[2023-06-25] MEDS ORDERED: KETOROLAC 15 MG/ML 1 ML VIAL IVP STA (15:22)
[2023-06-25] MEDS ORDERED: KETOROLAC 15 MG/ML 1 ML VIAL IVP PRN (15:22)
--- NOTE | 2023-06-25 15:23 | P.PN ---
Subjective Progress Note Date: 06/25/23 Patient is a 22-year-old female with a history of fainting and use and bipolar disorder who was initially hospitalized here from 06/18 through 06/1823 for ataxia and lower extreme paresthesias. During that hospital stay she underwent an MRI brain and lumbar spine which were unremarkable with no cause of her paresthesias. Her vitamin B12 level was found to be less than 150 and her vitamin D was low. She was subsequently discharged home with vitamin B-12 supplementation. After discharge neurology reconsidered and felt she should have a lumbar puncture and asked her to return to the hospital. Initial vital signs are within normal limits. Initial laboratory analysis included CBC, coags, CMP, TSH, CK, and urinalysis which were essentially unremarkable. Patient was subsequently placed in observation for lumbar puncture. Neurology was consulted. 06/23 Patient was seen and examined. Mother at bedside. Patient reports persistent paresthesias to just above her knee bilaterally. No shortness of breath or difficulty breathing. Reports constipation. Discussed with Dr. Allison, continue with IVIG. I changes the MRI ordered from L spine which was previously done to C and T spine. LP is unremarkable to still unable to exclude GBS per Dr. Allison. 06/24 Patient was seen and examined. No changes in clinical condition. Sleeping comfortably. Currently on IVIG infusions. MRI T spine negative. Vitamin B12 > 71555, TSH 1.59, CPK 57, CMV and EBV IgG +, PAULA negative. Immunoglobulin screen negative. Lyme negative. Treponema Ab negative. 06/25 Patient was seen and examined. No changes in paresthesias. She does report a headache today. MRI C-spine negative. Currently on IVIG infusions, last dose 06/26. Alpha-Tocopherol 962. Copper 1922. IgG elevated at 2130. SS-B Ab +. HIV negative. Viral panel negative. Vital signs reviewed General: nontoxic, no distress, appears at stated age Derm: warm, dry Cardiovascular: good distal perfusion in all 4 extremities, no edema Lungs: breathing comfortably, no accessory muscle use Ext: no gross muscle atrophy, no contractures Neuro: Spontaneously moving all 4 extremities while sleeping. Decreased sensation to touch below the knees bilaterally. Psych: Alert, oriented, appropriate affect Headache Bilateral lower extremity paresthesias with associated ataxia Vitamin B12 deficiency Anxiety and Depression Based on my assessment of this patient, this patient meets a high complexity level of care. Patient has an acute diagnosis of bilateral lower extremity paresthesias with concerns for GBS that poses a threat to life or bodily function. Headache: Likely side effect of IVIG. Start toradol 15 mg IV Q6H. Bilateral lower extremity paresthesias with associated ataxia: Continue IVIG. Discussed with Dr. Allison as above. Vitamin B12 deficiency: Vitamin B 12,000 g IM daily 5/7 days, then weekly 3, she has Rx at home Anxiety and Depression: Wellbutrin 300 mg daily, Paxil 10 mg at night CODE STATUS: FULL CODE DVT Prophylaxis: Lovenox SQ GI Prophylaxis: Designated medical POA if patient is not able to make medical decisions for themselves: Mother I have reviewed the following business sales consultant notes: Neurology note. I have reviewed the results of the following tests: MRI C spine. Alpha-Tocopherol. Copper. IgG. SS-B Ab +. HIV negative. Viral panel negative. I have ordered the following tests: CBC and BMP. I have discussed the care of this patient with the following independent historian: Discussed with mother. I have independently interpreted the following test below: I have discussed the management of this patient with the following physician: Dr. Allison as above. Objective - Vital Signs Vital signs: Vital Signs Temp 98.5 F 06/25/23 07:23 Pulse 85 06/25/23 07:23 Resp 19 06/25/23 07:23 BP 96/58 06/25/23 07:23 Pulse Ox 98 06/25/23 07:23 FiO2 Intake & Output 06/24/23 06/25/23 06/25/23 18:59 06:59 18:59 Intake Total 22 Balance 22 Intake: Intake, IV Titration 22 Amount Immune Globulin ( 22 Gammagard) 20 gm In Empty Bag 1 bag @ Per Protocol IV .Q0M ONE Rx#: [id number] Other: # Voids 5 3 - Labs CBC & Chem 7: 06/25/23 09:57 06/25/23 09:57 Labs: Abnormal Lab Results - Last 24 Hours (Table) 06/24/23 Range/Units 06:55 IgG 2130.0 H (700.0-1600.0) mg/dL Microbiology - Last 24 Hours (Table) 06/22/23 15:20 CSF Gram Stain - Preliminary Cerebral Spinal Fluid CSF Culture - Preliminary
--- NOTE | 2023-06-25 18:27 | P.PN ---
Subjective Progress Note Date: 06/25/23 On follow-up with the patient and that seems that yesterday when she got the IVIG she was complaining of diffuse headache with some nausea vomiting as a result the IV infusion had to be decreased. I notified the night nurse yesterday if the headache continues to get a CT of the head with a headache today has improved drastically according to the patient. No further nausea or vomiting. She feels more steady on her feet compared to initial presentation. She denies any new neurological issues. She is eating her dinner and tolerating the food. Objective - Vital Signs Vital signs: Vital Signs Temp 97.7 F 06/25/23 13:40 Pulse 95 06/25/23 13:40 Resp 18 06/25/23 13:40 BP 115/77 06/25/23 13:40 Pulse Ox 98 06/25/23 13:40 FiO2 Intake & Output 06/24/23 06/25/23 06/25/23 18:59 06:59 18:59 Intake Total 22 Balance 22 Intake: Intake, IV Titration 22 Amount Immune Globulin ( 22 Gammagard) 20 gm In Empty Bag 1 bag @ Per Protocol IV .Q0M ONE Rx#: [id number] Other: # Voids 5 3 6 # Bowel Movements 1 - Exam GENERAL: The patient is lying in bed and is not in acute distress. NEUROLOGICAL: Higher mental function: The patient is awake, alert, oriented to self, place and time. Patient is following commands. No aphasia and no neglect. Cranial nerves: The pupils are round, equal and reactive to light and accommodation. Visual brown are full to confrontation throughout. Extraocular movement is intact no nystagmus is noted. Facial sensation is normal to touch throughout. The facial strength is normal throughout. Hearing is normal bilaterally to hand rub. Tongue is midline and moved alsa-vj-yeup without any difficulty. No dysarthria is noted. Shoulder shrug is normal bilaterally. Motor: Gait is unsteady. The strength is bilateral calf are 5- bilaterally. Otherwise 5 over 5 throughout. Normal tone and bulk. Cerebellum: Normal finger to nose but ataxia heel to ward bilaterally. . Sensation: Sensation is decreased to touch below the knees bilaterally. Reflexes (right/left): Biceps 2+; triceps1+; brachioradialis 2+ ; patellar 0; ankles 0. Plantars are downgoing bilaterally. - Labs CBC & Chem 7: 11/22/23 09:57 06/25/23 09:57 Labs: Abnormal Lab Results - Last 24 Hours (Table) 06/25/23 Range/Units 09:57 Sodium 135 L (137-145) mmol/L Glucose 137 H (74-99) mg/dL Microbiology - Last 24 Hours (Table) 06/22/23 15:20 CSF Gram Stain - Preliminary Cerebral Spinal Fluid CSF Culture - Preliminary Assessment and Plan Assessment: This is a 22-year-old woman who has been having appears to show bilateral feet since 06/16/2023 and progressively getting worse up to the knees and she has ataxia in the lowers. She was found to have vitamin B12 deficiency with a B12 less than 150 and received vitamin B-12 1000 g IM supplement. She had MRI of the brain and the lumbar spine which were unknown unremarkable. Was felt by Dr. Ley the patient had the possible GBS and had the CSF study which was unremarkable. He denies off any recent fevers, G upper GI or or lower GI symptoms. On examination she has areflexia in the lowers and hypo-reflexia and some of the uppers. She also has ataxia in the lowers bilaterally. She is not a vegetarian but does not feels she consume a lot of meat and feels diet is off. Ataxia of the lowers with paresthesia of the feet progress and up to the knees with areflexia in the lowers and subcu hyporeflexia reflexia in the uppers: Unsure exactly etiology about possibly due to vitamin B12 deficiency causing sensory/ataxic peripheral neuropathy. Cannot rule out GBS. Recent diagnosis of vitamin B12 deficiency and he received vitamin B12 IM leon pplement and her vitamin B-12 level is a supratherapeutic. Vitamin D deficiency Marijuana use. History of anxiety and bipolar. Plan: * CSF was performed, which revealed CSF protein 43(12-60), glucose 51, WBC 0, RBC 7. Await MS panel, comprehensive virus detection, CSF BEN, myelin basic protein. * Vitamin B12 on 06/19/23 is <150 (normal is 200-944) and repeat on 06/22/23 is >3600. MMA: >5 (normal <0.40). * SSA is positive but SSB is negative?? Unsure if truly positive for SSA or false positive. Consider repeat s outpatient and management as outpatient. * MRI Brain, cervical, thoracic and Lumbar are unremarkable. * B6: 6 (normal is 5-50), therefore I started B6 25mg daily and after 2-3 weeks recheck level and will defer management as outpatient. B6 is not deficient and is not cause of her symptoms. * Pending parietal cell antibodies from last admission. Pending nitrous oxide. * Pending immune fixation electrophoresis, HIV Lyme titer negative. vitamin E level: 962 (normal), thiamine 74 (normal). Lyme is negative, PAULA is negative. mercury level, EBV postive IgG, CMV is non reactive ,rpr non reactive * Copper level: 1922 * TSH is 1.590, repeat vitamin B-12 is more than 3600. Calcium is 9.8, magnesium is 1.9, AST ALT is within normal limits at. CK level is 57 normal. Sodium is 137. ESR is 5. BEN is 17 (normal). * Dr. Ley started her on IVIG 0.4 g per 2 g/kg per day for 5 consecutive days and was started on 06/22/23. Yesterday patient had headache with nausea vomiting upon getting the IVIG and as a result the IV infusion was given at a low rate. Today headache improved and no further nausea or vomiting. If the patient continues to have any headache with nausea vomiting or any neurological issues, recommend holding the IVIG and the obtaining CT of the brain and this was notified to the nursing staff. * She is on vitamin B12 1000 g IM daily. For now recommend IM for 7 days in total then after that weekly for 4 weeks then monthly after that. * She is on vitamin D supplement * PT and OT are consulted * DVT prophylaxis: Lovenox 40 mg subcu daily. * Recommended the patient to obtain EMG with nerve conduction study of the lowers then uppers as outpatient. * Discussed with patient and her nurse. Dr. Ley will resume neurology service tomorrow A.M. Time with Patient: Less than 30
[2023-06-25] MEDS: PYRIDOXINE 50 MG TAB PO SCH (18:42)
[2023-06-25] MEDS ORDERED: IMMUNE GLOBULIN (GAMMAGARD) 20 GM in EMPTY BAG 1 BAG IV ONE (20:00)
[2023-06-25] MEDS ORDERED: IMMUNE GLOBULIN (GAMMAGARD) 5 GM in EMPTY BAG 1 BAG IV ONE (20:00)
[2023-06-26] MEDS: NON FORMULARY DRUG (Lumateperone Tosylate [Caplyta] 42 MG Capsule) PO SCH (01:17)
[2023-06-26] MEDS: buPROPion XL 300 MG TAB.ER.24H PO SCH (09:10)
[2023-06-26] MEDS: polyethylene glycoL 3350 17 GM POWD.PACK PO SCH (09:10)
[2023-06-26] MEDS: ENOXAPARIN 40 MG/0.4 ML SYRINGE SQ SCH (09:10)
[2023-06-26] MEDS: PYRIDOXINE 50 MG TAB PO SCH (09:10)
[2023-06-26] MEDS: CHOLECALCIFEROL 25 MCG (1000 IU) TABLET PO SCH (09:11)
[2023-06-26] MEDS: CYANOCOBALAMIN 1,000 MCG/ML 1 ML VIAL IM SCH (09:11)
[2023-06-26] MEDS ORDERED: bisacodyL 10 MG SUPP RECTAL STA (13:21)
--- NOTE | 2023-06-26 15:19 | P.PN ---
Subjective Progress Note Date: 06/26/23 Patient was seen for a follow-up. Patient's mother was also in the room. Patient states that the numbness has receded down to below knees bilaterally. Her legs is still numb. Her walking has improved, and is more controlled on her legs. She is not able to walk without walker. The headache has resolved. No other neurological concerns. Objective - Vital Signs Vital signs: Vital Signs Temp 98.1 F 06/26/23 07:43 Pulse 76 06/26/23 07:43 Resp 18 06/26/23 07:43 BP 97/60 06/26/23 07:43 Pulse Ox 99 06/26/23 07:43 FiO2 Intake & Output 06/25/23 06/26/23 06/26/23 18:59 06:59 18:59 Intake Total 250.00 26.95 Balance 250.00 26.95 Intake: Intake, IV Titration 250.00 26.95 Amount Immune Globulin ( 200 Gammagard) 20 gm In Empty Bag 1 bag @ Per Protocol IV .Q0M ONE Rx#: [id number] Immune Globulin ( 26.95 Gammagard) 20 gm In Empty Bag 1 bag @ Per Protocol IV .Q0M ONE Rx#: [id number] Immune Globulin ( 50.00 Gammagard) 5 gm In Empty Bag 1 bag @ Titrate IV . Q0M ONE Rx#:[id number] Other: # Voids 6 2 # Bowel Movements 1 - Exam Patient's mental status, speech and language functions are normal. Cranial nerves are normal. Muscle strength is normal in the arms and legs distally and proximally, except hip flexion, which is about 5-on the left. Sensory touch is decreased from toes up to below knees. No ataxia for bwjsta-fc-jtfv testing bilaterally. No dysdiadochokinesia. Patient has moderate ataxia for [id number]-fb-[id number] testing bilaterally. Tone and bulk of muscles normal. Patient walked with her walker. Patient definitely has improvement in her gait, although still has sensory ataxic gait. Her legs were more in control, less wobbly, and more narrow base as compared to before. 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 Symptoms mainly involving the lower extremities. Patient has completely absent reflexes in the lower limbs. Her deep tendon reflexes in the upper extremities also seems to have reduced as compared to the previous examination. * Vitamin B12 deficiency, probably concurrent, but probably not the cause of presentation. Patient had acute presentation, which is extremely unlikely with B12 deficiency. * Vitamin B6 borderline * Vitamin D deficiency * Anxiety, depression * Vapes Plan: * CSF was performed, which revealed CSF protein 43(12-60), glucose 51, WBC 0, RBC 7. Comprehensive virus detection negative, CSF BEN < 5 (normal), MS panel with negative oligoclonal bands. IgG synthesis rate is 0.00, and IgG index 0.09 which is normal. await myelin basic protein. * MMA >5.0, B6 6 (5-50), parietal cell antibodies -2.3 units (<=20). Patient on B6 and B12 replacement. * Pending nitrous oxide. * Vitamin E level: 962 (normal), thiamine 74 (normal). Lyme is negative, PAULA is negative. mercury level, EBV postive IgG, CMV IgG positive but IgM negative. RPR non reactive * Copper level: 1922 * Immune fixation electrophoresis negative, HIV negative, Sjogren's antibodies SS-A 1.2/1.0, but SSB < 0.2. Lyme titer negative, HIV negative. * Patient is completing course of IVIG 0.4 g per 2 g/kg per day for 5 co nsecutive days. Today is day #5. After infusion, she will be going home. Patient clinically has much improved as compared to the last examination performed prior to IVIG. Patient has tolerated IVIG very well. * Recommend patient follow-up with neurologist, and also perhaps insurance defense paralegal for abdominal Sjogren's antibodies. * Patient may need GI workup as to find the cause of B12 deficiency. * MRI of the brain, cervical, thoracic and lumbar spines are all normal. No evidence of demyelinating disease. * DVT prophylaxis: Lovenox 40 mg subcu daily.
[2023-06-26 16:43] VITALS: BP 103/65; PULSE 93; TEMP 98.8
--- NOTE | 2023-06-26 17:28 | P.DS ---
Providers Date of admission: 06/22/23 14:04 Expected date of discharge: 06/26/23 Attending physician: Negrita John DO Consults: 06/22/23 14:03 Consult Physician Urgent Consulting Provider: Adam Ley Consult Reason/Comments: weak Do you want consulting provider notified?: Already Contacted Primary care physician: Phani Mccrary [facility] Course: Discharge Diagnosis: Gait ataxia Probable Guillain-Tong syndrome Vitamin B12 deficiency Relative thiamine deficiency Bipolar disorder Nicotine dependency Hospital Course: Patient is a 22-year-old female with a history of fainting and use and bipolar disorder who was initially hospitalized here from 06/18 through 06/1823 for ataxia and lower extreme paresthesias. During that hospital stay she underwent an MRI brain and lumbar spine which were unremarkable with no cause of her paresthesias. Her vitamin B12 level was found to be less than 150 and her vitam in D was low. She was subsequently discharged home with vitamin B-12 supplementation. After discharge neurology reconsidered and felt she should have a lumbar puncture and asked her to return to the hospital. Initial vital signs are within normal limits. Initial laboratory analysis included CBC, coags, CMP, TSH, CK, and urinalysis which were essentially unremarkable. Patient was subsequently placed in observation for lumbar puncture. Neurology was consulted and lumbar puncture was preformed. MRI thoracic spine limited by motion with no abnormal postcontrast enhancement. Cervical spine MRI: No evidence for disc herniation or significant spinal stenosis. Her B6 level was found to be 6 with normal 5-50 and she was therefore started on B6 supplementation. Immunofixation, HIV, Lyme's titer, vitamin E, thiamine, mercury levels, copper levels, CMP, syphilis testing all came back normal. She received 5 doses of IVIG for possible Guillain-Tong syndrome syndrome. She had some improvement in her symptoms. She was determined stable for discharge. Follow-up: Dr. Larson in 1 weeks, Dr. Mccrary in 1 week. One weekly B12 injections, B6 supplementation. Recommended repeat B6 and B12 levels in 4-6 weeks. Should follow with GI for work-up of malabsorption. Pending test: Nitric oxide, SSA positive but SSB negative, MS panel and myelin basic protein Patient seen and examined at bedside with mother present. No BM in several days. Numbness is better now.Wants to go home. Per mom and patient she is ambulating better. Vital signs reviewed and stable. General: nontoxic, no distress, appears at stated age Cardiovascular: S1S2 reg, no murmur, positive posterior tibial pulse bilateral, Lungs: CTA bilateral, no rhonchi, no rales , no accessory muscle use Abdominal: soft, nontender to palpation, no guarding, no appreciable organomegaly Ext: no gross muscle atrophy, no edema b/l lower extremities, no contractures Neuro: CN II-XI grossly intact Psych: Alert, oriented, appropriate affect A total of 32 minutes of time were spent preparing this complex discharge summary. Patient was discharged on 06/26/24. This dictation was prepared using [employer] voice recognition software. Though every attempt is made to correct errors during dictation some may still exist. Plan - Discharge Summary New Discharge Prescriptions: New Pyridoxine [Vitamin B-6] 25 mg PO DAILY #30 tab Continue norgestimate-ethinyl estradioL [Lucy 0.25-0.035 mg Tablet] 1 tab PO DAILY Lumateperone Tosylate [Caplyta] 42 mg PO HS Cyanocobalamin [Vitamin B-12 Injection] 1,000 mcg IM DIRECTED #10 ml buPROPion XL [Wellbutrin XL] 300 mg PO DAILY PARoxetine HCL [Paxil] 10 mg PO HS Cholecalciferol [Vitamin D3 (25 Mcg = 1000 Iu)] 1,000 unit PO DAILY #30 tab Discharge Medication List Lumateperone Tosylate [Caplyta] 42 mg PO HS 06/18/23 [History] PARoxetine HCL [Paxil] 10 mg PO HS 06/18/23 [History] buPROPion XL [Wellbutrin XL] 300 mg PO DAILY 06/18/23 [History] norgestimate-ethinyl estradioL [Lucy 0.25-0.035 mg Tablet] 1 tab PO DAILY 06/18/23 [History] Cholecalciferol [Vitamin D3 (25 Mcg = 1000 Iu)] 1,000 unit PO DAILY #30 tab 06/21/23 [Rx] Cyanocobalamin [Vitamin B-12 Injection] 1,000 mcg IM DIRECTED #10 ml 06/21/23 [Rx] Pyridoxine [Vitamin B-6] 25 mg PO DAILY #30 tab 06/26/23 [Rx] Follow up Appointment(s)/Referral(s): [facility] [NON-STAFF] - As Needed (Call [facility] to arrange delivery of the commode chair once discharged. ) Phani Mccrary MD [Primary Care Provider] - 1-2 days Activity/Diet/Wound Care/Special Instructions: Activity: As tolerated, Be careful of falling Diet: Regular Special Instructions: Please follow with Dr. Mccrary to have outpatient therapy arranged. You are on once weekly B12 now. Recommend repeat B12 and B6 levels in 4-6 weeks. Please continue to follow with Dr. Woodruff for possible malabsorption of B12 Discharge Disposition: HOME SELF-CARE
[2023-06-26] MEDS ORDERED: IMMUNE GLOBULIN (GAMMAGARD) 5 GM in EMPTY BAG 1 BAG IV ONE (20:00)
[2023-06-26] MEDS ORDERED: IMMUNE GLOBULIN (GAMMAGARD) 20 GM in EMPTY BAG 1 BAG IV ONE (20:00)
[2023-06-27 13:04] LABS: IgG - CSF 2.5 mg/dL (0.0 - 3.4); IgG/Albumin Index (CSF) 0.29 (0.00 - 0.77)
[2023-06-28 13:14] LABS: Mercury Whole Blood <5 mcg/L (<OR=10)
== END 2023-06-26 18:12 | disposition home or self-care (01) | DRG 49 ==
LOC: EC 13:37 → 4SSUR 14:03 → OBSVTOIN 14:04 → 4SSUR 14:48
PROVIDERS: ADMIT Internal Medicine; ATTEND Internal Medicine
PROC: 30233S1 Transfusion of Nonautologous Globulin into Peripheral Vein, Percutaneous Approach (ICD-10-PCS; principal; 2023-06-22)
PROC: 009U3ZX Drainage of Spinal Canal, Percutaneous Approach, Diagnostic (ICD-10-PCS; 2023-06-22)
DX: G61.0 Guillain-Barre syndrome (principal); E51.9 Thiamine deficiency, unspecified; F31.9 Bipolar disorder, unspecified; E53.8 Deficiency of other specified B group vitamins; F41.9 Anxiety disorder, unspecified; F17.290 Nicotine dependence, other tobacco product, uncomplicated; Z71.6 Tobacco abuse counseling; Z79.3 Long term (current) use of hormonal contraceptives; Z79.899 Other long term (current) drug therapy; K59.00 Constipation, unspecified; E55.9 Vitamin D deficiency, unspecified
CPT/HCPCS: 36415; 72156; 72157; 80048; 80053; 81003; 82040; 82042; 82164; 82525; 82550; 82607; 82784; 82945; 83605; 83735; 83825; 83873; 83916; 84157; 84425; 84439; 84443; 84446; 84481; 85025; 85027; 85610; 85730; 86235; 86334; 86644; 86645; 86663; 86664; 86665; 86780; 87070; 87205; 87252; 87390; 87496; 87498; 87529; 87798; 89050; 99285

== ENCOUNTER 2023-07-29 07:08 | Day surgery (SDC) | payer OTHER ==
[2023-07-23 12:52] VITALS: BMI 28.3
[2023-07-29] MEDS ORDERED: LACTATED RINGERS 1,000 ML IV ONE ×2 (07:38)
[2023-07-29] MEDS ORDERED: LIDOCAINE 2% (PF) 20 MG/ML 5 ML VIAL ONE (07:49)
[2023-07-29] MEDS ORDERED: PROPOFOL 10 MG/ML 20 ML VIAL IV ONE (07:49)
[2023-07-29 07:51] VITALS: TEMP 97.3
--- NOTE | 2023-07-29 08:03 | P.PCN ---
Date of Procedure: 07/29/23 Procedure(s) Performed: BRIEF HISTORY: Patient is a 22-year-old, pleasant, white female scheduled for an upper endoscopy as a part of evaluation of nausea and and recently diagnosed vitamin B12 deficiency.. She presented with paresthesias of the lower extremities and went to the emergency room and was noted to have very low vitamin B12 levels. She was started on vitamin B12 injections on a weekly basis. She is being evaluate her for pernicious anemia. PROCEDURE PERFORMED: Esophagogastroduodenoscopy biopsy. PREOPERATIVE DIAGNOSIS: Nausea/vitamin B12 deficiency. IV sedation per anesthesia. PROCEDURE: After informed consent was obtained, the patient was brought into the endoscopy unit. IV sedation was administered by Anesthesia under continuous monitoring. Initially the Olympus GIF-140 video endoscope was inserted into the mouth. Esophagus intubated without any difficulty. It was gradually advanced into the stomach and duodenum and carefully examined. The bulb and the second part of the duodenum appeared normal. Biopsies were done from the duodenum to evaluate for celiac disease. The scope at this time was withdrawn to the stomach, adequately insufflated with air, and upon careful examination, mucosa of the antrum, had mild gastritis and biopsies were done from this area. Multi ple biopsies were also done from the body the stomach to evaluate for any autoimmune gastritis. Rest of the body, cardia and the fundus appeared normal. The scope was then withdrawn into the esophagus. The GE junction was located at 39 cm from the incisors. The esophagus appeared normal. There were no erosions or ulcerations seen and the patient tolerated the procedure well. IMPRESSION: 1. Mild antral gastritis. 2. No evidence of esophagitis or peptic ulcer. RECOMMENDATIONS: The findings of this examination were discussed with the patient as well as a family. She was advised to follow with the biopsy results. In the meantime recommend antiparietal cell and anti-intrinsic cell antibodies to evaluate for pernicious anemia..
[2023-07-29 08:16] VITALS: RESP 16
[2023-07-29 08:41] VITALS: BP 134/89; PULSE 68
== END 2023-07-29 08:39 | disposition home or self-care (01) ==
LOC: ORWHC2ENDO 07:08
PROVIDERS: ATTEND Internal Medicine Gastroenterology
DX: K29.50 Unspecified chronic gastritis without bleeding (principal); D51.0 Vitamin B12 deficiency anemia due to intrinsic factor deficiency; F17.200 Nicotine dependence, unspecified, uncomplicated; F41.9 Anxiety disorder, unspecified; F31.9 Bipolar disorder, unspecified; Z79.899 Other long term (current) drug therapy
CPT/HCPCS: 81025; 88305; 43239; J2704; J2001

== ENCOUNTER → 2023-08-12 | Outpatient (CLI) | payer OTHER ==
[2023-08-12 18:44] LABS: Basophils # (A) 0 X 10*3/uL (0.00-0.10); Basophils % (A) 0 %; Eosinophils # (A) 0 X 10*3/uL (0.04-0.35); Eosinophils % (A) 0 %; HCT 37.7 % (37.2-46.3); HGB 12.9 g/dL (12.0-15.0); Lymphocytes # (A) 2.01 X 10*3/uL (0.90-5.00); MCH 33.1 pg (27.0-32.0); MCHC 34.2 g/dL (32.0-37.0); MCV 96.7 FL (80.0-97.0); Mean Platelet Volume 9.3 FL (9.5-12.2); Monocytes # (A) 0.33 X 10*3/uL (0.20-1.00); Monocytes % (A) 5.6 %; NRBC Per 100 WBC 0 X 10*3/uL (0.00-0.01); Neutrophils # (A) 3.55 X 10*3/uL (1.80-7.70); Neutrophils % (A) 60.1 %; Platelet Count 305 X 10*3/uL (140-440); RDW 14.5 % (11.5-14.5); WBC 5.91 X 10*3/uL (4.50-10.00)
== END | disposition home or self-care (01) ==
LOC: LABWHC1 12:28
PROVIDERS: ATTEND Internal Medicine Gastroenterology
DX: E53.8 Deficiency of other specified B group vitamins (principal)
CPT/HCPCS: 36415; 82607; 83516; 85025

== ENCOUNTER 2024-11-10 15:15 | Inpatient (IN) | payer OTHER ==
--- NOTE | 2024-11-10 15:50 | ED ---
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 Reports that she awoke this morning and had tingling in her bilateral lower extremities which extends from her feet to her knees. The weakness was so significant that she fell down a flight of stairs and hit her head on cement. Denies losing consciousness. Denies any neck or back pain. Admits that symptoms feel similar to last year when she was diagnosed with Guillain-Tong. Patient reports she has not had any issues since this diagnosis. She never followed up outpatient with a neurologist. She saw the auto refinisher once and was lost to follow-up. She denies any fevers. No concern for . No changes in her bowel or bladder habits. Denies any nausea or vomiting. No other alleviating, precipitating or modifying factors - Related Data Home Medications Medication Instructions Recorded Confirmed buPROPion XL [Wellbutrin XL] 300 mg PO DAILY 06/18/23 11/10/24 norgestimate-ethinyl estradioL 1 tab PO HS 06/18/23 11/10/24 [Lucy 0.25-0.035 mg Tablet] Albuterol Inhaler [Ventolin Hfa 2 puff INHALATION RT-Q4H PRN 11/10/24 11/10/24 Inhaler] Cariprazine HCl [Vraylar] 1.5 mg PO HS 11/10/24 11/10/24 Lisdexamfetamine Dimesylate 20 mg PO DAILY 11/10/24 11/10/24 [Vyvanse] lamoTRIgine [LaMICtal Xr] 50 mg PO DAILY 11/10/24 11/10/24 Previous Rx's Medication Instructions Recorded Cyanocobalamin [Vitamin B-12] 1,000 mcg PO DAILY #60 tab 11/16/24 Allergies Allergy/AdvReac Type Severity Reaction Status Date / Time No Known Allergies Allergy Verified 11/10/24 20:44 Review of Systems ROS Statement: Those systems with pertinent positive or pertinent negative responses have been documented in the HPI. ROS Other: All systems not noted in ROS Statement are negative. Past Medical History Past Medical History: No Reported History Additional Past Medical History / Comment(s): B12 deficiency, Bipolar disorder, RECENT INPT FOR BLE WEAKNESS-STILL HAVING SOME N/T BLE-SYMPTOMS ARE GETTING BETTER History of Any Multi-Drug Resistant Organisms: None Reported Past Surgical History: No Surgical Hx Reported Past Anesthesia/Blood Transfusion Reactions: No Reported Reaction Past Psychological History: Anxiety, Bipolar, Depression Smoking Status: Current every day smoker, Vaper Past Alcohol Use History: Occasional Past Drug Use History: None Reported - Past Family History Mother Additional Family Medical History / Comment(s): mothers aunt and cousin both have MS Father Family Medical History: No Reported History, Unable to Obtain General Exam Limitations: physical limitation General appearance: alert, in no apparent distress Head exam: Present: atraumatic, normocephalic, normal inspection Eye exam: Present: normal appearance, PERRL, EOMI. Absent: scleral icterus, conjunctival injection, periorbital swelling ENT exam: Present: normal exam, mucous membranes moist Neck exam: Present: normal inspection. Absent: tenderness, meningismus, lymphadenopathy Respiratory exam: Present: normal lung sounds bilaterally. Absent: respiratory distress, wheezes, rales, rhonchi, stridor Cardiovascular Exam: Present: regular rate, normal rhythm, normal heart sounds. Absent: systolic murmur, diastolic murmur, rubs, gallop, clicks GI/Abdominal exam: Present: soft, normal bowel sounds. Absent: distended, tenderness, guarding, rebound, rigid Extremities exam: Present: normal inspection, full ROM, normal capillary refill. Absent: tenderness, pedal edema, joint swelling, calf tenderness Back exam: Present: normal inspection Neurological exam: Present: alert, oriented X3, CN II-XII intact Psychiatric exam: Present: normal affect, normal mood Skin exam: Present: warm, dry, intact, normal color. Absent: rash Course Vital Signs 11/10/24 11/10/24 15:43 21:23 Temperature 99.0 F 98.3 F Pulse Rate 97 105 H Respiratory 18 20 Rate Blood Pressure 118/82 124/84 O2 Sat by Pulse 99 100 Oximetry Medical Decision Making - Medical Decision Making Was pt. sent in by a medical professional or institution (, PA, [employer], urgent care, hospital, or [place] health [place] facility...) When possible be specific @ -No Did you speak to anyone other than the patient for history (EMS, parent, family, police, friend...)? What history was obtained from this source @ -Spoke with patient's mother for history Did you review nursing and triage notes (agree or disagree)? Why? @ -I reviewed and agree with nursing and triage notes Were old charts reviewed (outside hosp., previous admission, EMS record, old EKG, old radiological studies, urgent care reports/EKG's, [place] health care facility records)? Report findings @ -I reviewed the patient's chart from June 2023 when she was diagnosed with possible Guillain-Tong. This includes the CFS studies and neurology consultation Differential Diagnosis (chest pain, altered mental status, abdominal pain women, abdominal pain men, vaginal bleeding, weakness, fever, dyspnea, syncope, headache, dizziness, GI bleed, back pain, seizure, CVA, palpatations, mental health, musculoskeletal)? @ -Guillain-Tong, multiple sclerosis, brain mass EKG interpreted by me (3pts min.). @ -Not done X-rays interpreted by me (1pt min.). @ -None done CT interpreted by me (1pt min.). @ -None done U/S interpreted by me (1pt. min.). @ -None done What testing was considered but not performed or refused? (CT, X-rays, U/S, labs)? Why? @ -None What meds were considered but not given or refused? Why? @ -None Did you discuss the management of the patient with other professionals (professionals i.e. , PA, [employer], lab, RT, psych nurse, vp digital marketing social media and crm, lawn and garden technician, teacher, chief information security officer, social work case manager)? Give summary @ -I discussed case with Dr. Dakota allison from neurology to discuss what laboratory testing was needed and if I should administer IVIG. Also spoke with Dr. Bosch who admitted the patient Was smoking cessation discussed for >3mins.? @ -No Was critical care preformed (if so, how long)? @ -No Were there social determinants of health that impacted care today? How? (Homelessness, low income, unemployed, alcoholism, drug addiction, transportation, low edu. Level, literacy, decrease access to med. care, alf, rehab)? @ -No Was there de-escalation of care discussed even if they declined (Discuss DNR or withdrawal of care, Hospice)? DNR status @ -No What co-morbidities impacted this encounter? (DM, HTN, Smoking, COPD, CAD, Cancer, CVA, ARF, Chemo, Hep., AIDS, mental health diagnosis, sleep apnea, morbid obesity)? @ -History of Guillain-Tong Was patient admitted / discharged? Hospital course, mention meds given and route, prescriptions, significant lab abnormalities, going to OR and other pertinent info. @ -Upon arrival patient seen and evaluated in ACP. Thorough history and physical exam was performed. IV was established and laboratory studies were conducted. I did speak with Dr. Allison from neurology to discuss workup. He recommended overnight admission so that he can consult on the patient. I did speak with the patient about this and she was agreeable to admission. I spoke with Dr. Bosch from [facility] who did accept the admission Undiagnosed new problem with uncertain prognosis? @ -No Drug Therapy requiring intensive monitoring for toxicity (Heparin, Nitro, Insulin, Cardizem)? @ -No Were any procedures done? @ -No Diagnosis/symptom? @ -Acute bilateral lower extremity weakness with reported ascending paralysis, history of possible Guillain-Tong Acute, or Chronic, or Acute on Chronic? @ -Acute Uncomplicated (without systemic symptoms) or Complicated (systemic symptoms)? @ -Complicated Side effects of treatment? @ -No Exacerbation, Progression, or Severe Exacerbation? @ -No Poses a threat to life or bodily function? How? (Chest pain, [place], [place], pneumonia, PE, COPD, DKA, ARF, appy, cholecystitis, CVA, Diverticulitis, Homicidal, Suicidal, threat to staff... and all critical care pts) @ -Yes this patient is reporting ascending paralysis - Lab Data Result diagrams: 11/14/24 06:00 11/14/24 06:00 Lab Results 11/10/24 11/10/24 11/10/24 Range/Units 15:49 15:49 15:49 WBC 11.29 H (4.50-10.00) 10*3/uL RBC 4.30 (4.10-5.20) 10*6/uL Hgb 13.8 (12.0-15.0) g/dL Hct 39.8 (37.2-46.3) % MCV 92.6 (80.0-97.0) fL MCH 32.1 H (27.0-32.0) pg MCHC 34.7 (32.0-37.0) g/dL Plt Count 418 (140-440) 10*3/uL MPV 8.6 L (9.5-12.2) fL Immature Gran % (Auto) 0.5 % Neutrophils % 59.7 % Lymphocytes % 32.0 % Monocytes % 5.9 % Eosinophils % 1.6 % Basophils % 0.3 % Immature Gran # 0.06 H (0.00-0.04) 10*3/uL Neutrophils # 6.74 (1.80-7.70) 10*3/uL Lymphocytes # 3.61 (0.90-5.00) 10*3/uL Monocytes # 0.67 (0.20-1.00) 10*3/uL Eosinophils # 0.18 (0.04-0.35) 10*3/uL Basophils # 0.03 (0.00-0.10) 10*3/uL PT 10.4 (10.0-12.5) sec INR 0.9 (<1.2) APTT 22.4 (22.0-30.0) sec Sodium 136 L (137-145) mmol/L Potassium 5.0 (3.5-5.1) mmol/L Chloride 101 (98-107) mmol/L Carbon Dioxide 25 (22-30) mmol/L Anion Gap 10 mmol/L BUN 17 (7-17) mg/dL Creatinine 0.65 (0.52-1.04) mg/dL Est GFR (CKD-EPI)AfAm >90 (>60 ml/min/1.73 sqM) Est GFR (CKD-EPI)NonAf >90 (>60 ml/min/1.73 sqM) Glucose 88 (74-99) mg/dL Plasma Lactic Acid Lam (0.7-2.0) mmol/L Calcium 9.7 (8.4-10.2) mg/dL Magnesium 1.9 (1.6-2.3) mg/dL Total Bilirubin 0.6 (0.2-1.3) mg/dL AST 32 (14-36) U/L ALT 21 (4-34) U/L Alkaline Phosphatase 49 (38-126) U/L Total Protein 7.1 (6.3-8.2) g/dL Albumin 4.2 (3.5-5.0) g/dL Vitamin B12 292.0 (200.0-944.0) pg/mL Urine Color Urine Appearance (Clear) Urine pH (5.0-8.0) Ur Specific [place] (1.001-1.035) Urine Protein (Negative) Urine Glucose (UA) (Negative) Urine Ketones (Negative) Urine Blood (Negative) Urine Nitrite (Negative) Urine Bilirubin (Negative) Urine Urobilinogen (<2.0) mg/dL Ur Leukocyte Esterase (Negative) Urine RBC (0-5) /hpf Urine WBC (0-5) /hpf Ur Squamous Epith Cells (0-4) /hpf Urine Mucus (None) /hpf Urine HCG, Qual (Not Detectd) 11/10/24 11/10/24 11/10/24 Range/Units 15:49 15:49 15:49 WBC (4.50-10.00) 10*3/uL RBC (4.10-5.20) 10*6/uL Hgb (12.0-15.0) g/dL Hct (37.2-46.3) % MCV (80.0-97.0) fL MCH (27.0-32.0) pg MCHC (32.0-37.0) g/dL Plt Count (140-440) 10*3/uL MPV (9.5-12.2) fL Immature Gran % (Auto) % Neutrophils % % Lymphocytes % % Monocytes % % Eosinophils % % Basophils % % Immature Gran # (0.00-0.04) 10*3/uL Neutrophils # (1.80-7.70) 10*3/uL Lymphocytes # (0.90-5.00) 10*3/uL Monocytes # (0.20-1.00) 10*3/uL Eosinophils # (0.04-0.35) 10*3/uL Basophils # (0.00-0.10) 10*3/uL PT (10.0-12.5) sec INR (<1.2) APTT (22.0-30.0) sec Sodium (137-145) mmol/L Potassium (3.5-5.1) mmol/L Chloride (98-107) mmol/L Carbon Dioxide (22-30) mmol/L Anion Gap mmol/L BUN (7-17) mg/dL Creatinine (0.52-1.04) mg/dL Est GFR (CKD-EPI)AfAm (>60 ml/min/1.73 sqM) Est GFR (CKD-EPI)NonAf (>60 ml/min/1.73 sqM) Glucose (74-99) mg/dL Plasma Lactic Acid Lam 1.5 (0.7-2.0) mmol/L Calcium (8.4-10.2) mg/dL Magnesium (1.6-2.3) mg/dL Total Bilirubin (0.2-1.3) mg/dL AST (14-36) U/L ALT (4-34) U/L Alkaline Phosphatase (38-126) U/L Total Protein (6.3-8.2) g/dL Albumin (3.5-5.0) g/dL Vitamin B12 (200.0-944.0) pg/mL Urine Color Yellow Urine Appearance Cloudy H (Clear) Urine pH 6.0 (5.0-8.0) Ur Specific [place] 1.027 (1.001-1.035) Urine Protein Trace H (Negative) Urine Glucose (UA) Negative (Negative) Urine Ketones Negative (Negative) Urine Blood Negative (Negative) Urine Nitrite Negative (Negative) Urine Bilirubin Negative (Negative) Urine Urobilinogen <2.0 (<2.0) mg/dL Ur Leukocyte Esterase Small H (Negative) Urine RBC 1 (0-5) /hpf Urine WBC 10 H (0-5) /hpf Ur Squamous Epith Cells 9 H (0-4) /hpf Urine Mucus Occasional H (None) /hpf Urine HCG, Qual Not Detected (Not Detectd) Disposition Clinical Impression: Bilateral leg weakness, Vitamin B12 deficiency, Paresthesia of both lower extremities, Fall Disposition: ADMITTED IP TO THIS [facility] Condition: Good Is patient prescribed a controlled substance at d/c from ED?: No Time of Disposition: 20:18 Decision to Admit Reason: Admit from EC Decision Date: 11/10/24 Decision Time: 20:18
[2024-11-10 17:08] LABS: Basophils # (A) 0.03 10*3/uL (0.00-0.10); Basophils % (A) 0.3 %; Eosinophils # (A) 0.18 10*3/uL (0.04-0.35); Eosinophils % (A) 1.6 %; HCT 39.8 % (37.2-46.3); HGB 13.8 g/dL (12.0-15.0); Lymphocytes # (A) 3.61 10*3/uL (0.90-5.00); MCH 32.1 pg (27.0-32.0); MCHC 34.7 g/dL (32.0-37.0); MCV 92.6 fL (80.0-97.0); Mean Platelet Volume 8.6 fL (9.5-12.2); Monocytes # (A) 0.67 10*3/uL (0.20-1.00); Monocytes % (A) 5.9 %; Neutrophils # (A) 6.74 10*3/uL (1.80-7.70); Neutrophils % (A) 59.7 %; Platelet Count 418 10*3/uL (140-440); RDW 14.3 % (11.5-14.5); WBC 11.29 10*3/uL (4.50-10.00)
[2024-11-10 17:20] LABS: INR 0.9 (<1.2); Partial Thromboplastin Time 22.4 sec (22.0-30.0); Prothrombin Time 10.4 sec (10.0-12.5)
[2024-11-10 17:28] LABS: ALT 21 U/L (4-34); African American GFR (CKD) >90 (>60 ml/min/1.73 sqM); Albumin 4.2 g/dL (3.5-5.0); Anion Gap 10 mmol/L; Blood Urea Nitrogen 17 mg/dL (7-17); Calcium 9.7 mg/dL (8.4-10.2); Carbon Dioxide 25 mmol/L (22-30); Chloride 101 mmol/L (98-107); Glucose 88 mg/dL (74-99); Non-African American GFR(CKD) >90 (>60 ml/min/1.73 sqM); Sodium 136 mmol/L (137-145); Total Bilirubin 0.6 mg/dL (0.2-1.3); Total Protein 7.1 g/dL (6.3-8.2)
[2024-11-10 17:35] LABS: AST 32 U/L (14-36); Alkaline Phosphatase 49 U/L (38-126); Magnesium 1.9 mg/dL (1.6-2.3)
[2024-11-10 18:31] LABS: Appearance,Urine Cloudy (Clear); Bilirubin,Urine Negative (Negative); Blood,Urine Negative (Negative); Color,Urine Yellow; Glucose,Urine (UA) Negative (Negative); Ketones,Urine Negative (Negative); Leukocyte Esterase,Urine Small (Negative); Mucus,Urine Occasional /hpf; Nitrite,Urine Negative (Negative); Protein,Urine Trace (Negative); RBC,Urine 1 /hpf (0-5); Specific Gravity,Urine 1.027 (1.001-1.035); Squamous Epithelial Cell,Urine 9 /hpf (0-4); Urobilinogen,Urine <2.0 mg/dL (<2.0); WBC,Urine 10 /hpf (0-5)
[2024-11-10] MEDS ORDERED: NALOXONE 0.4 MG/ML 1 ML VIAL IV PRN (20:18)
--- NOTE | 2024-11-10 20:37 | CT ---
EXAMINATION TYPE: CT brain wo con DATE OF EXAM: 11/10/2024 8:21 PM COMPARISON: Not. CLINICAL INDICATION: Female, 23 years old with history of b/le weakness, difficulty with ambulating, diagnosed with guillain-barre about a year ago and she thinks it is coming back, patient reports fall ing down around four steps today and hit her head on the cemen. denies neck pain/blurred vision/LOC TECHNIQUE: Brain: Axial CT images of the brain were obtained with coronal and sagittal reformats created and rev iewed. Contrast used: None. Oral contrast used: None. CT DLP: 1115.4 mGycm, Automated exposure control for dose reduction was used. FINDINGS: Brain: Extra-axial spaces: No abnormal extra-axial fluid collections. Ventricular system: Within normal limits Cerebral parenchyma: No acute intraparenchymal hemorrhage or mass effect. The osman-white junction is well differentiated. Cerebellum: Unremarkable. Mass effect: No evidence of midline shift. Intracranial vasculature: unremarkable Soft tissues: Normal. Calvarium/osseous structures: No depressed skull fracture. Paranasal sinuses and mastoid air cells: Mild scattered paranasal sinus disease. Visualized orbits: Orbital contents are intact. IMPRESSION: No acute intracranial process. [facility], , 11/10/2024 8:34 PM
[2024-11-10] MEDS ORDERED: ALBUTEROL NEBULIZED 2.5 MG/3 ML INHALATION PRN (23:14)
--- NOTE | 2024-11-10 23:30 | P.HPIM ---
History of Present Illness H&P Date: 11/10/24 Chief Complaint: Lower extremity weakness Patient is a 23 year old female with past medical history of vitamin B12 deficiency, possible Guillain Tong presented to the ED with bilateral lower extremity weakness. Patient states that when she woke up this morning she had tingling and weakness in her bilateral lower extremities. Weakness extended from her feet to her knees. Associated with that she also had weakness which was so severe that she fell down a flight of stairs. She hit her head on the cement. She was not able to get up on her own. She denies losing consciousness. Her mother mentions that her gait has been off and that she would sway to the sides while walking. She reports having similar symptoms last year. At the time she had ascending bilateral lower extremity weakness, extending gradually from her feet to her thighs. She was diagnosed with Guillain-Tong. Patient was admitted from 06/22/2023 to 06/26/2023 with similar symptoms. She had a lumbar puncture on 06/22/2023. During that hospital stay she underwent an MRI brain and lumbar spine which were unremarkable with no cause of her paresthesias. Her vitamin B12 level was found to be less than 150 and her vitamin D was low. Neurology was consulted and lumbar puncture was preformed. CSF study was unremarkable. MRI thoracic spine limited by motion with no abnormal postcontrast enhancement. Cervical spine MRI: No evidence for disc herniation or significant spinal stenosis. Her B6 level was found to be 6 with normal 5-50 and she was therefore started on B6 supplementation. Immunofixation, HIV, Lyme's titer, vitamin E, thiamine, mercury levels, copper levels, CMP, syphilis testing all came back normal. She received 5 doses of IVIG for possible Guillain-Tong syndrome syndrome. She had some improvement in her symptoms. She did have a positive SSA but a negative SSB. Since then she did she neurologist and a buckle gluer once but was not able to follow-up. 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 Repeat EMG was supposed to be done in 6 mo nths but she wasn't able to keep that appointment. Patient also reports having a family history of MS in mother's aunt and cousin. Patient also had an EGD done in July 2023 for Vitamin B12 deficiency that showed midl antral gastritis, no evidence of peptic ulcer or esophagitis. Denies fever, chills, shortness of breath, cough, chest pain, palpitations, abdominal pain, nausea, vomiting, hematuria, dysuria, hematochezia, melena, headache, slurred speech, dizziness, lightheadedness, blurred vision, double vision. ED documentation reviewed. Vitals on admission T 99 F, VA 97 bpm, RR 18, BP 118/82, oxygen saturation 99% on room air Brain CT shows no acute intracranial process Labs on admission show WBC 11.29, hemoglobin 13.8, platelet count 418, INR 0.9, sodium 136, potassium 5, creatinine 0.65, total bilirubin 0.6, magnesium 1.9, lactic acid 1.5 UA shows cloudy appearance, trace protein, small leukocyte esterase, 10 WBC, 9 squamous epithelial cells, occasional mucus. Urine hCG is negative Review of systems: Pertinent positives and negatives as discussed in HPI, a complete review of systems was performed and all other systems are negative. Social history: Tobacco: Current everyday smoker/vapor Alcohol: Occasional Recreational drugs: Denies use Travel: No recent travel Sick contacts: None Physical examination: Vital signs reviewed General: no distress, appears at stated age Derm: warm, dry, intact Head: atraumatic, normocephalic, symmetric Eyes: EOMI, anicteric sclera Mouth: no lip lesion, mucus membranes moist Cardiovascular: S1 S2 reg, no murmur Lungs: CTA bilateral, no rhonchi, no rales, no accessory muscle use Abdominal: soft, non-tender to palpation Extremities: No cyanosis, clubbing, or pedal edema. Neuro: Alert, Oriented, strength 4/5 in all four extremities, numbness on touch from foot to knees bilaterally, Indeterminate heel to ward test bilaterally likely due to body habitus, Finger to nose test performed without difficulty, ataxic gait Psych: cooperative Assessment/Plan: Patient is a 23 year old female with past medical history of vitamin B12 de ficiency, possible Guillain Tong presented to the ED with bilateral lower extremity weakness. Active: #. Bilateral lower extremity weakness and numbness, unclear etiology #. Possible Guillain-Tong vs Multiple sclerosis #. Vitamin B12 deficiency #. Suspected celiac disease Brain CT shows no acute intracranial process, done to rule out increased intracr anial pressure Obtain vitamin B12 level, Vitamin D, intrinsic factor antibody, anti tissue transglutaminase antibody, antiendomysial antibody, IgA, ESR, CRP MRI brain, cervical spine, thoracic spine, lumbar spine Lumbar puncture Neurology consulted #. Leukocytosis, likely reactive WBC 11.2 on admission Monitor CBC Chronic: #. Vitamin D deficiency #. Bipolar disorder #. ADHD #. Tobacco dependence Continue bupropion 300 mg p.o. daily, cariprazine 1.5 mg p.o. at bedtime, lamotrigine 50 mg p.o. daily, lisdexamfetamine dimesylate 20 mg p.o. daily, norgestimate ethinyl estradiol 1 each p.o. at bedtime, F: None E: Replete as required N: Regular diet GI prophylaxis: Pantoprazole 40 mg p.o. daily The patient is admitted with an anticipated more than 2 midnight stay for evaluation of bilateral lower extremity weakness CODE STATUS: Full code Discussed with: Patient Anticipated discharge place: Home Past Medical History Past Medical History: No Reported History Additional Past Medical History / Comment(s): B12 deficiency, Bipolar disorder, RECENT INPT FOR BLE WEAKNESS-STILL HAVING SOME N/T BLE-SYMPTOMS ARE GETTING BETTER History of Any Multi-Drug Resistant Organisms: None Reported Past Surgical History: No Surgical Hx Reported Past Anesthesia/Blood Transfusion Reactions: No Reported Reaction Past Psychological History: Anxiety, Bipolar, Depression Smoking Status: Current every day smoker, Vaper Past Alcohol Use History: Occasional Past Drug Use History: None Reported - Past Family History Mother Additional Family Medical History / Comment(s): mothers aunt and cousin both have MS Father Family Medical History: No Reported History, Unable to Obtain Medications and Allergies Home Medications Medication Instructions Recorded Confirmed Type buPROPion XL [Wellbutrin XL] 300 mg PO DAILY 06/18/23 11/10/24 History norgestimate-ethinyl estradioL 1 tab PO HS 06/18/23 11/10/24 History [Lucy 0.25-0.035 mg Tablet] Albuterol Inhaler [Ventolin Hfa 2 puff INHALATION RT-Q4H PRN 11/10/24 11/10/24 History Inhaler] Cariprazine HCl [Vraylar] 1.5 mg PO HS 11/10/24 11/10/24 History Lisdexamfetamine Dimesylate 20 mg PO DAILY 11/10/24 11/10/24 History [Vyvanse] lamoTRIgine [LaMICtal Xr] 50 mg PO DAILY 11/10/24 11/10/24 History Allergies Allergy/AdvReac Type Severity Reaction Status Date / Time No Known Allergies Allergy Verified 11/10/24 20:44 Physical Exam Vitals: Vital Signs Temp Pulse Resp BP Pulse Ox 11/10/24 15:43 99.0 F 97 18 118/82 99 Intake and Output 11/10/24 11/10/24 11/10/24 06:59 14:59 22:59 Other: Weight 90.718 kg Results CBC & Chem 7: 11/10/24 15:49 11/10/24 15:49 Labs: Abnormal Lab Results - Last 24 Hours (Table) 11/10/24 11/10/24 11/10/24 Range/Units 15:49 15:49 15:49 WBC 11.29 H (4.50-10.00) 10*3/uL MCH 32.1 H (27.0-32.0) pg MPV 8.6 L (9.5-12.2) fL Immature Gran # 0.06 H (0.00-0.04) 10*3/uL Sodium 136 L (137-145) mmol/L Urine Appearance Cloudy H (Clear) Urine Protein Trace H (Negative) Ur Leukocyte Esterase Small H (Negative) Urine WBC 10 H (0-5) /hpf Ur Squamous Epith Cells 9 H (0-4) /hpf Urine Mucus Occasional H (None) /hpf
--- NOTE | 2024-11-11 00:51 | P.PCN ---
Date of Procedure: 11/11/24 Preoperative Diagnosis: Bilateral lower extremity weakness and numbness Postoperative Diagnosis: Bilateral lower extremity weakness and numbness Procedure(s) Performed: Lumbar puncture Indications for Procedure: Suspected multiple sclerosis Description of Procedure: PROCEDURE STRAIGHTENING PRESS OPERATOR: Santosh Alamo MD ATTENDING PHYSICIAN: Sonny Awan MD In Attendance (Y/N): Y CONSENT: During the informed consent discussion regarding the procedure, or treatment, I explained the following to the patient/designee: a. Nature of the procedure or treatment and who will perform the procedure or treatment. b. Necessity for procedure and the possible benefits. c. Risks and complications (most common and serious). d. Alternative treatments and the risks, benefits and side effects of each (including no treatment). e. Likelihood of the patient achieving his/her goals without this procedure and surgery treatment. f. Problems that might occur during the recuperation. g. Conflicts of interest, if any PROCEDURE SUMMARY: A time-out was performed. My hands were washed immediately prior to the procedure. I wore sterile gloves throughout the procedure. The patient was placed in the sitting position with help from the nursing staff. The area was cleansed and draped in usual sterile fashion using betadine scrub. Anesthesia was achieved with 1% lidocaine. A 20-gauge 3.5-inch spinal needle was placed in the L3-L4 lumbar interspace. On the third attempt, clear cerebral spinal fluid was obtained. CSF was collected into 4 tubes. These were sent for the usual tests, including 1 tube to be held for further analysis if needed. A sterile bandaid was placed over the puncture site. The patient had no immediate complications and tolerated the procedure well. Estimated blood loss was 2- 3ml.
[2024-11-11 02:18] LABS: African American GFR (CKD) >90 (>60 ml/min/1.73 sqM); Anion Gap 11 mmol/L; Blood Urea Nitrogen 18 mg/dL (7-17); C Reactive Protein 2.5 mg/dL (<1.0); Calcium 9.8 mg/dL (8.4-10.2); Carbon Dioxide 26 mmol/L (22-30); Chloride 102 mmol/L (98-107); Glucose 109 mg/dL (74-99); Non-African American GFR(CKD) >90 (>60 ml/min/1.73 sqM); Sodium 139 mmol/L (137-145)
[2024-11-11 06:45] LABS: Glucose,CSF 66 mg/dL (40-70); Total Protein,CSF 45 mg/dL (12-60)
[2024-11-11] MEDS: PANTOPRAZOLE 40 MG TABLET PO SCH (06:59)
[2024-11-11 08:42] LABS: Basophils # (A) 0.03 X 10*3/uL (0.00-0.10); Basophils % (A) 0.3 %; Eosinophils # (A) 0.17 X 10*3/uL (0.04-0.35); Eosinophils % (A) 1.6 %; HCT 38.4 % (37.2-46.3); HGB 12.4 g/dL (12.0-15.0); Lymphocytes % (A) 37.7 %; MCH 31.3 pg (27.0-32.0); MCHC 32.3 g/dL (32.0-37.0); Mean Platelet Volume 9.3 FL (9.5-12.2); Monocytes # (A) 0.69 X 10*3/uL (0.20-1.00); Monocytes % (A) 6.7 %; NRBC Per 100 WBC 0 X 10*3/uL (0.00-0.01); Neutrophils # (A) 5.52 X 10*3/uL (1.80-7.70); Neutrophils % (A) 53.3 %; Platelet Count 372 X 10*3/uL (140-440); RBC 3.96 X 10*6/uL (4.10-5.20); RDW 14.4 % (11.5-14.5); WBC 10.35 X 10*3/uL (4.50-10.00)
[2024-11-11 09:24] LABS: Appearance,CSF Clear; CSF Tube Number 4
[2024-11-11 09:25] LABS: CSF Tube Volume 4.5; Nucleated Cells, CSF 2 u/L (0-5); Red Blood Cell,CSF 0 u/L (0-10)
[2024-11-11] MEDS: NON FORMULARY DRUG (Lisdexamfetamine Dimesylate [Vyvanse] 20 MG Capsule) PO SCH (09:52)
[2024-11-11] MEDS: ACETAMINOPHEN TAB 325 MG TAB PO PRN (09:53)
[2024-11-11] MEDS: lamoTRIgine 25 MG TAB PO SCH (09:54)
[2024-11-11] MEDS: buPROPion XL 300 MG TAB.ER.24H PO SCH (09:54)
--- NOTE | 2024-11-11 10:47 | P.CNNES ---
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 She stated her symptoms began about 2 days ago and she noticed that her gait was wobbly as well as she noticed numbness in her calf going up to the knees. She denies any recent sick contacts or fevers. She denies any speech difficulty, visual disturbance, any weakness in the upper extremity. Denies any numbness in the upper extremity. he did state that she was gaining weight because of her psych medication and in the last 4 weeks she was on Ozempic taking injection once a week.Patient states that she is on vitamin B12 p.o. supplements. She continues to vape. She denies any illicit drug use or alcohol use. She stated that she did follow-up with the neurologist maybe once and she thinks she had EMG but does not recall the results. She has not followed up with a neurologist afterwards because she was busy with her work. She does not recall that the neurologist she followed up with. She did follow-up with the associate financial planner maybe once or twice and again did not follow-up afterwards and does not know why but thinks it is because of her busy schedule with work. 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 She had B12 deficiency. She had SSA antibody was positive and she completed 5 days of IVIG. She was asked to follow-up with a neurologist as well as associate financial planner as an outpatient. Please refer to our notes for further details. Some of the workup during this hospital visit consisted of: ESR is 14 Calcium is 9.7, magnesium is 1.9, AST ALT is within normal limits BUN/creatinine is within normal limits Sodium is 136 and repeat is 139 CRP is 2.5 B12 is 292 CSF study: It is clear, colorless, red blood cells 0, total nucleated cells 2, glucose is 66 and total protein is 45. IgA is 136 CT of the head is reported as no acute intracranial process. I reviewed the CT and agree with the report. Review of Systems As per HPI. Past Medical History Past Medical History: No Reported History Additional Past Medical History / Comment(s): B12 deficiency, Bipolar disorder, RECENT INPT FOR BLE WEAKNESS-STILL HAVING SOME N/T BLE-SYMPTOMS ARE GETTING BETTER History of Any Multi-Drug Resistant Organisms: None Reported Past Surgical History: No Surgical Hx Reported Past Anesthesia/Blood Transfusion Reactions: No Reported Reaction Past Psychological History: Anxiety, Bipolar, Depression Smoking Status: Current every day smoker, Vaper Past Alcohol Use History: Occasional Past Drug Use History: None Reported - Past Family History Mother Additional Family Medical History / Comment(s): mothers aunt and cousin both have MS Father Family Medical History: No Reported History, Unable to Obtain Medications and Allergies Home Medications Medication Instructions Recorded Confirmed Type buPROPion XL [Wellbutrin XL] 300 mg PO DAILY 06/18/23 11/10/24 History norgestimate-ethinyl estradioL 1 tab PO HS 06/18/23 11/10/24 History [Lucy 0.25-0.035 mg Tablet] Albuterol Inhaler [Ventolin Hfa 2 puff INHALATION RT-Q4H PRN 11/10/24 11/10/24 History Inhaler] Cariprazine HCl [Vraylar] 1.5 mg PO HS 11/10/24 11/10/24 History Lisdexamfetamine Dimesylate 20 mg PO DAILY 11/10/24 11/10/24 History [Vyvanse] lamoTRIgine [LaMICtal Xr] 50 mg PO DAILY 11/10/24 11/10/24 History Allergies Allergy/AdvReac Type Severity Reaction Status Date / Time No Known Allergies Allergy Verified 11/10/24 20:44 Physical Examination - Vital Signs Vital Signs: Vital Signs Temp Pulse Pulse Resp BP BP Pulse Ox 11/11/24 07:00 98.2 F 84 18 94/61 98 11/11/24 03:24 98.3 F 114 H 16 119/72 97 11/10/24 22:36 98.3 F 113 H 15 136/87 96 11/10/24 21:23 98.3 F 105 H 20 124/84 100 04/09/25 15:43 99.0 F 97 18 118/82 99 Intake and Output 11/10/24 11/11/24 11/11/24 22:59 06:59 14:59 Other: Voiding Method Toilet # Voids 1 Weight 90.718 kg GENERAL: The patient is lying in bed and is not in acute distress. NEUROLOGICAL: Higher mental function: The patient is awake, alert, oriented to self, place and time. Patient is following commands. No aphasia and no neglect. Cranial nerves: The pupils are round, equal and reactive to light and accommodation. Visual brown are full to confrontation throughout. Extraocular movement is intact no nystagmus is noted. Facial sensation is normal to touch throughout. The facial strength is normal throughout. Hearing is normal bilaterally to hand rub. Tongue is midline and moved [id number] without any difficulty. No dysarthria is noted. Shoulder shrug is normal bilaterally. Motor: Gait: Need mild one person assist to walk but not swaying one side or other. The strength is ankle plantar flexion are 4+ bilaterally. Otherwise 5 over 5 throughout. Normal tone and bulk. Cerebellum: Normal finger to nose but ataxic on heel to ward bilaterally. Sensation: Sensation is normal to touch throughout. Reflexes (right/left): Biceps 2/2; triceps 2-3/2-3; brachioradialis 2/2; patellar 0/0; ankles 0/0. Plantars are mute bilaterally. Results - Laboratory Findings CBC and BMP: 11/11/24 01:09 11/11/24 01:09 Abnormal Lab Findings: Abnormal Labs 11/10/24 11/10/24 11/10/24 15:49 15:49 15:49 WBC 11.29 H RBC MCH 32.1 H MPV 8.6 L Immature Gran # 0.06 H Sodium 136 L BUN Glucose C-Reactive Protein Urine Appearance Cloudy H Urine Protein Trace H Ur Leukocyte Esterase Small H Urine WBC 10 H Ur Squamous Epith Cells 9 H Urine Mucus Occasional H 11/11/24 11/11/24 01:09 01:09 WBC 10.35 H RBC 3.96 L MCH MPV 9.3 L Immature Gran # Sodium BUN 18 H Glucose 109 H C-Reactive Protein 2.5 H Urine Appearance Urine Protein Ur Leukocyte Esterase Urine WBC Ur Squamous Epith Cells Urine Mucus Assessment and Plan Assessment: This is a 23-year-old woman with 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 Also cannot rule out other causes such as vitamin deficiencies leading to this especially with weight loss on and is on Ozempic. So far CSF study is unremarkable. CSF studies can be normal in early GBS pictures. Low normal vitamin B12: high 200 History of vitamin B12 deficiency and is on Vitamin B12 supplement History of SSA positive History of Probable GBS in 2022 but it does not seems patient had regular follow-up. CSF study at that time was normal as well. History of Bipolar History of anxiety Obesity Nicotine use (Vapes) Plan: Pending MRI of the brain, cervical, thoracic and lumbar spine The patient vitamin B12 1000 mcg IM once and after that p.o. Will consider IVIG for 5 days. Thiamine level, vitamin B6 level, oligoclonal panel is ordered and is pending, addressing factor antibody is ordered by the primary team is pending next Recommend psychiatry consultation to adjust the patient's medications since she feels her psych medications causing her to gain weight and she is in a spiral after that she is depressed PT and OT are consulted Patient was counseled on cessation of nicotine use. Will defer the rest of the medical management to primary and other specialist Will Obtain the patient's records from her outpatient neurologist and associate financial planner The plan is discussed with patient and primary attending. Thank you for the consultation. Time with Patient: Greater than 30
[2024-11-11] MEDS: CYANOCOBALAMIN 1,000 MCG/ML 1 ML VIAL IM ONE (11:54)
--- NOTE | 2024-11-11 13:10 | P.PN ---
Subjective Progress Note Date: 11/11/24 23 year old female with past medical history of vitamin B12 deficiency, possible Guillain Tong presented to the ED with bilateral lower extremity weakness. Patient states that when she woke up this morning she had tingling and weakness in her bilateral lower extremities. Weakness extended from her feet to her knees. Associated with that she also had weakness which was so severe that she fell down a flight of stairs. She hit her head on the cement. She was not able to get up on her own. She denies losing consciousness. Her mother mentions that her gait has been off and that she would sway to the sides while walking. She reports having similar symptoms last year. At the time she had ascending bi lateral lower extremity weakness, extending gradually from her feet to her thighs. She was diagnosed with Guillain-Tong. Patient was admitted from 06/22/2023 to 06/26/2023 with similar symptoms. She had a lumbar puncture on 06/22/2023. During that hospital stay she underwent an MRI brain and lumbar spine which were unremarkable with no cause of her paresthesias. Her vitamin B12 level was found to be less than 150 and her vitamin D was low. Neurology was consulted and lumbar puncture was preformed. CSF study was unremarkable. MRI thoracic spine limited by motion with no abnormal postcontrast enhancement. Cervical spine MRI: No evidence for disc herniation or significant spinal stenosis. Her B6 level was found to be 6 with normal 5-50 and she was therefore started on B6 supplementation. Immunofixation, HIV, Lyme's titer, vitamin E, thiamine, mercury levels, copper levels, CMP, syphilis testing all came back normal. She received 5 doses of IVIG for possible Guillain-Tong syndrome syndrome. She had some improvement in her symptoms. She did have a positive SSA but a negative SSB. Since then she did she neurologist and a hide mill worker once but was not able to follow-up. 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 Repeat EMG was supposed to be done in 6 months but she wasn't able to keep that appointment. Patient also reports having a family history of MS in mother's aunt and cousin. Patient also had an EGD done in July 2023 for Vitamin B12 deficiency that showed midl antral gastritis, no evidence of peptic ulcer or esophagitis. Denies fever, chills, shortness of breath, cough, chest pain, palpitations, abdominal pain, nausea, vomiting, hematuria, dysuria, hematochezia, melena, headache, slurred speech, dizziness, lightheadedness, blurred vision, double vision. ED documentation reviewed. 11/11 - She is seen and examined at bedside this morning. Without any acute events overnight, no acute complaints at this time. REVIEW OF SYSTEMS: Pertinent positives and negatives noted in HPI. Physical Exam: Vital signs reviewed General: no distress, appears at stated age Derm: warm, dry, intact Head: atraumatic, normocephalic, symmetric Eyes: EOMI, anicteric sclera Mouth: no lip lesion, mucus membranes moist Cardiovascular: S1 S2 reg, no murmur Lungs: CTA bilateral, no rhonchi, no rales, no accessory muscle use Abdominal: soft, non-tender to palpation Extremities: No cyanosis, clubbing, or pedal edema. Neuro: Alert, Oriented, strength 4/5 in all four extremities, numbness on touch from foot to knees bilaterally, Indeterminate heel to ward test bilaterally likely due to body habitus, Finger to nose test performed without difficulty, ataxic gait Psych: cooperative Data Received Today: Labs: WBCs 10.35, hemoglobin 12.4, hematocrit 38.4, platelet 372; sodium 139, potassium 4.0, BUN 18, creatinine 0.76, calcium 9.8, CRP 2.5 -Lumbar puncture showed clear appearance, colorless with 2 total nucleated cells, glucose 66, total protein 45 -IgA 136; transglutamine IgG <0.8, transglutamine IgA <0.5 Imagining: MRI brain, cervical spine, lumbar spine, thoracic spinal ordered, currently pending Assessment and plan Patient is a 23 year old female with past medical history of vitamin B12 deficiency, possible Guillain Tong presented to the ED with bilateral lower extremity weakness. #Bilateral lower extremity weakness and numbness, unclear etiology #Possible Guillain-Tong vs Multiple sclerosis #Vitamin B12 deficiency #Suspected celiac disease -Brain CT shows no acute intracranial process, done to rule out increased intracranial pressure -Obtain vitamin B12 level, thiamine, vitamin B6 Vitamin D, intrinsic factor antibody, anti tissue transglutaminase antibody, antiendomysial antibody -IgA 136, CRP 2.5, ESR 14 -Given vitamin B12 1000 mcg IM once, initiate oral vitamin B12 after that -MRI brain, cervical spine, thoracic spine, lumbar spine all ordered, currently pending -Lumbar puncture showed clear appearance, colorless with 2 total nucleated cells, glucose 66, total protein 45 -Discussed with neurology, may consider giving IVIG, also consider psychiatric consult for further adjustment of psychiatric medications -Physical therapy and Occupational Therapy consulted #Leukocytosis, likely reactive -WBC 10.35 this morning -Monitor CBC Chronic: #Vitamin D deficiency #Bipolar disorder #ADHD #Tobacco dependence -Continue bupropion 300 mg p.o. daily, cariprazine 1.5 mg p.o. at bedtime, lamotrigine 50 mg p.o. daily, lisdexamfetamine dimesylate 20 mg p.o. daily, norgestimate ethinyl estradiol 1 each p.o. at bedtime -Consider psychiatry consultation for recommendations regarding psych medications DVT ppx: GI ppx: Protonix 40 mg daily Code status: Full code F: None E: Replete as needed N: Regular diet A: Ambulatory at baseline Anticipated discharge place: Home Anticipated discharge time: Pending clinical course Dictation was produced using [employer] dictation software. please excuse any grammatical, word or spelling errors. Jayden San MD PGY-1 IM I have seen and evaluated the patient today. Discussed with the resident and agree with the residents finding and plan as documented in the resident's note. Changes highlighted in blue font. Objective - Vital Signs Vital signs: Vital Signs Temp 98.2 F 11/11/24 07:00 Pulse 84 11/11/24 07:00 Resp 18 11/11/24 07:00 BP 94/61 11/11/24 07:00 Pulse Ox 98 11/11/24 07:00 FiO2 Intake & Output 11/10/24 11/11/24 11/11/24 18:59 06:59 18:59 Weight 90.718 kg 90.718 kg Other: Voiding Method Toilet # Voids 1 - Labs CBC & Chem 7: 11/11/24 01:09 11/11/24 01:09 Labs: Abnormal Lab Results - Last 24 Hours (Table) 11/10/24 11/10/24 11/10/24 Range/Units 15:49 15:49 15:49 WBC 11.29 H (4.50-10.00) 10*3/uL MCH 32.1 H (27.0-32.0) pg MPV 8.6 L (9.5-12.2) fL Immature Gran # 0.06 H (0.00-0.04) 10*3/uL Sodium 136 L (137-145) mmol/L BUN (7-17) mg/dL Glucose (74-99) mg/dL C-Reactive Protein (<1.0) mg/dL Urine Appearance Cloudy H (Clear) Urine Protein Trace H (Negative) Ur Leukocyte Esterase Small H (Negative) Urine WBC 10 H (0-5) /hpf Ur Squamous Epith Cells 9 H (0-4) /hpf Urine Mucus Occasional H (None) /hpf 11/11/24 Range/Units 01:09 WBC (4.50-10.00) 10*3/uL MCH (27.0-32.0) pg MPV (9.5-12.2) fL Immature Gran # (0.00-0.04) 10*3/uL Sodium (137-145) mmol/L BUN 18 H (7-17) mg/dL Glucose 109 H (74-99) mg/dL C-Reactive Protein 2.5 H (<1.0) mg/dL Urine Appearance (Clear) Urine Protein (Negative) Ur Leukocyte Esterase (Negative) Urine WBC (0-5) /hpf Ur Squamous Epith Cells (0-4) /hpf Urine Mucus (None) /hpf
[2024-11-11] MEDS: LIDOCAINE 4% PATCH TOPICAL PRN (18:44)
[2024-11-11] MEDS: norgestimate-ethinyl estradioL 1 EACH TABLET PO SCH (23:01)
[2024-11-11] MEDS: NON FORMULARY DRUG (Cariprazine Hcl [Vraylar] 1.5 MG Capsule) PO SCH (23:01)
[2024-11-12 05:23] LABS: Basophils # (A) 0.04 10*3/uL (0.00-0.10); Basophils % (A) 0.5 %; Eosinophils # (A) 0.17 10*3/uL (0.04-0.35); HCT 37.1 % (37.2-46.3); HGB 12.6 g/dL (12.0-15.0); Lymphocytes # (A) 4.05 10*3/uL (0.90-5.00); Lymphocytes % (A) 47.5 %; MCH 31.9 pg (27.0-32.0); MCV 93.9 fL (80.0-97.0); Mean Platelet Volume 8.6 fL (9.5-12.2); Monocytes # (A) 0.66 10*3/uL (0.20-1.00); Monocytes % (A) 7.7 %; Neutrophils # (A) 3.57 10*3/uL (1.80-7.70); Neutrophils % (A) 41.8 %; Platelet Count 342 10*3/uL (140-440); RBC 3.95 10*6/uL (4.10-5.20); RDW 14.6 % (11.5-14.5); WBC 8.53 10*3/uL (4.50-10.00)
[2024-11-12 05:40] LABS: African American GFR (CKD) >90 (>60 ml/min/1.73 sqM); Anion Gap 6 mmol/L; Blood Urea Nitrogen 17 mg/dL (7-17); Calcium 9.2 mg/dL (8.4-10.2); Carbon Dioxide 26 mmol/L (22-30); Chloride 106 mmol/L (98-107); Glucose 121 mg/dL (74-99); Non-African American GFR(CKD) >90 (>60 ml/min/1.73 sqM); Potassium 4.1 mmol/L (3.5-5.1); Sodium 138 mmol/L (137-145)
[2024-11-12] MEDS: norgestimate-ethinyl estradioL 1 EACH TABLET PO SCH (09:08)
--- NOTE | 2024-11-12 11:23 | P.PN ---
Subjective Progress Note Date: 11/12/24 23 year old female with past medical history of vitamin B12 deficiency, possible Guillain Tong presented to the ED with bilateral lower extremity weakness. Patient states that when she woke up this morning she had tingling and weakness in her bilateral lower extremities. Weakness extended from her feet to her knees. Associated with that she also had weakness which was so severe that she fell down a flight of stairs. She hit her head on the cement. She was not able to get up on her own. She denies losing consciousness. Her mother mentions that her gait has been off and that she would sway to the sides while walking. She reports having similar symptoms last year. At the time she had ascending bi lateral lower extremity weakness, extending gradually from her feet to her thighs. She was diagnosed with Guillain-Tong. Patient was admitted from 06/22/2023 to 06/26/2023 with similar symptoms. She had a lumbar puncture on 06/22/2023. During that hospital stay she underwent an MRI brain and lumbar spine which were unremarkable with no cause of her paresthesias. Her vitamin B12 level was found to be less than 150 and her vitamin D was low. Neurology was consulted and lumbar puncture was preformed. CSF study was unremarkable. MRI thoracic spine limited by motion with no abnormal postcontrast enhancement. Cervical spine MRI: No evidence for disc herniation or significant spinal stenosis. Her B6 level was found to be 6 with normal 5-50 and she was therefore started on B6 supplementation. Immunofixation, HIV, Lyme's titer, vitamin E, thiamine, mercury levels, copper levels, CMP, syphilis testing all came back normal. She received 5 doses of IVIG for possible Guillain-Tong syndrome syndrome. She had some improvement in her symptoms. She did have a positive SSA but a negative SSB. Since then she did she neurologist and a diamond sorter once but was not able to follow-up. 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 Repeat EMG was supposed to be done in 6 months but she wasn't able to keep that appointment. Patient also reports having a family history of MS in mother's aunt and cousin. Patient also had an EGD done in July 2023 for Vitamin B12 deficiency that showed midl antral gastritis, no evidence of peptic ulcer or esophagitis. Denies fever, chills, shortness of breath, cough, chest pain, palpitations, abdominal pain, nausea, vomiting, hematuria, dysuria, hematochezia, melena, headache, slurred speech, dizziness, lightheadedness, blurred vision, double vision. ED documentation reviewed. 11/11 - She is seen and examined at bedside this morning. Without any acute events overnight, no acute complaints at this time. 11/12 - She is seen and examined at bedside this morning. No acute events overnight. Late yesterday afternoon, was reported she had some discomfort at the site of the lumbar puncture, lidocaine patch was ordered, with some improvement of her symptoms. She is scheduled to undergo MRI brain, cervical spine, thoracic spine, lumbar spine today. REVIEW OF SYSTEMS: Pertinent positives and negatives noted in HPI. Physical Exam: Vital signs reviewed General: no distress, appears at stated age Derm: warm, dry, intact Head: atraumatic, normocephalic, symmetric Eyes: EOMI, anicteric sclera Mouth: no lip lesion, mucus membranes moist Cardiovascular: S1 S2 reg, no murmur Lungs: CTA bilateral, no rhonchi, no rales, no accessory muscle use Abdominal: soft, non-tender to palpation Extremities: No cyanosis, clubbing, or pedal edema. Neuro: Alert, Oriented, strength 4/5 in all four extremities, numbness on touch from foot to knees bilaterally, Indeterminate heel to ward test bilaterally likely due to body habitus, Finger to nose test performed without difficulty, ataxic gait Psych: cooperative Data Received Today: Labs: WBCs 8.53, hemoglobin 12.6, hematocrit 37.1, platelet 342; sodium 138, potassium 4.1, BUN 17, creatinine 0.69, calcium 9.2 - CSF: Preliminarily negative CSF culture and Gram stain Imagining: MRI brain, cervical spine, thoracic spine and lumbar spine all ord ered, currently pending Assessment and plan Patient is a 23 year old female with past medical history of vitamin B12 deficiency, possible Guillain Tong presented to the ED with bilateral lower extremity weakness. #Bilateral lower extremity weakness and numbness, unclear etiology #Possible Guillain-Tong vs Multiple sclerosis #Vitamin B12 deficiency #Suspected celiac disease -Brain CT shows no acute intracranial process, done to rule out increased intracranial pressure -Obtain thiamine, vitamin B6 Vitamin D, intrinsic factor antibody, antiendomysial antibody, SSA antibody, SSB antibody, Lyme Ab, MS panel, Myelin basic protein (CSF) -IgA 136, transglutamine antibody negative, CRP 2.5, ESR 14, vitamin B12 292, RBC folate 619 -Given vitamin B12 1000 mcg IM once, initiate oral vitamin B12 after that -MRI brain, cervical spine, thoracic spine, lumbar spine all ordered, currently pending -Lumbar puncture showed clear appearance, colorless with 2 total nucleated ce lls, glucose 66, total protein 45; CSF culture and Gram stain preliminarily negative -Discussed with neurology, may consider giving IVIG, also consider psychiatric consult for further adjustment of psychiatric medications -Physical therapy and Occupational Therapy consulted #Leukocytosis, likely reactive -WBC 8.53 this morning -Monitor CBC Chronic: #Vitamin D deficiency #Bipolar disorder #ADHD #Tobacco dependence -Continue bupropion 300 mg p.o. daily, cariprazine 1.5 mg p.o. at bedtime, lamotrigine 50 mg p.o. daily, lisdexamfetamine dimesylate 20 mg p.o. daily, norgestimate ethinyl estradiol 1 each p.o. at bedtime -Consider psychiatry consultation for recommendations regarding psych medications DVT ppx: GI ppx: Protonix 40 mg daily Code status: Full code F: None E: Replete as needed N: Regular diet A: Ambulatory at baseline Anticipated discharge place: Home Anticipated discharge time: Pending clinical course Dictation was produced using [employer] dictation software. please excuse any grammatical, word or spelling errors. Jayden San MD PGY-1 IM I have seen and evaluated the patient today. Discussed with the resident and agree with the residents finding and plan as documented in the resident's note. Changes highlighted in blue font. Discussed with neurology, considering IVIG Patient failed observation status, will be switched to inpatient for further workup of possible demyelinating disorder, and IVIG Objective - Vital Signs Vital signs: Vital Signs Temp 98.2 F 11/12/24 06:50 Pulse 79 11/12/24 06:50 Resp 20 11/12/24 06:50 BP 102/64 11/12/24 06:50 Pulse Ox 97 11/12/24 06:50 FiO2 Intake & Output 11/11/24 11/12/24 11/12/24 18:59 06:59 18:59 Other: Voiding Method Toilet Toilet # Voids 3 2 - Labs CBC & Chem 7: 11/12/24 05:02 11/12/24 05:02 Labs: Abnormal Lab Results - Last 24 Hours (Table) 11/11/24 11/12/24 11/12/24 Range/Units 01:09 05:02 05:02 WBC 10.35 H (4.50-10.00) X 10*3/uL RBC 3.96 L 3.95 L (4.10-5.20) X 10*6/uL Hct 37.1 L (37.2-46.3) % RDW 14.6 H (11.5-14.5) % MPV 9.3 L 8.6 L (9.5-12.2) FL Glucose 121 H (74-99) mg/dL Microbiology - Last 24 Hours (Table) 11/11/24 00:20 CSF Gram Stain - Preliminary Cerebral Spinal Fluid
[2024-11-12] MEDS: ALPRAZolam 0.5 MG TAB PO STA (11:48)
[2024-11-12 11:52] LABS: Anti-Endomysial IgA Antibody <1:10 Titer (<1:10)
[2024-11-12] MEDS: VYVANSE 20 MG PO SCH (12:01)
--- NOTE | 2024-11-12 15:12 | MR ---
EXAMINATION TYPE: MR brain wo/w con DATE OF EXAM: 11/12/2024 1:49 PM COMPARISON: CT brain 11/10/2024 CLINICAL INDICATION: Female, 23 years old with history of paresthesia, TECHNIQUE: Multiplanar, multiecho imaging on a 3.0 Tatum magnet is performed through the brain. Stud y is performed within 24 hours of arrival to the hospital.Multiplanar, multiecho imaging on a 3.0 Mattie la magnet is performed through the knee. IV Contrast: mL (None, if empty) FINDINGS: The craniovertebral junction is normal. The pituitary is normal. Diffusion-weighted imaging is performed. No abnormal hyperintensity is present to suggest an acute i ntracranial infarct or acute ischemic change. There are scattered punctate areas of hyperintensity on T2 and Inversion Recovery weighted sequences which are non-specific but can be related to microvascular ischemic changes. Ventricles and sulci are appropriate for the patient age. There is a small retention cyst within the left maxillary sinus IMPRESSION: 1. No acute intracranial process. Follow-up can be performed as clinically indicated. [facility], , 11/12/2024 3:10 PM
--- NOTE | 2024-11-12 16:35 | P.PN ---
Subjective Progress Note Date: 11/12/24 I am following up with the patient and she feels about the same. Denies any worsening of her condition or any new neurological. It seems she had an EMG with [facility] at [facility] with [facility] on 07/21/2023 and it is reported as the electrodiagnostic study findings demonstrate right mild peroneal neuropathy. Falls positive can be seen as this is technically difficult nerve to obtain in the patient size can interfere with the reading Clinical correlation may be required. There was no electrophysiological evidence of peripheral polyneuropathy or lumbar radiculopathy although a negative needle EMG examination may not produce lumbosacral radiculopathy. She was adamant that the IVIG in 2022 when she was hospitalized afterward she saw improvement in her condition. Objective - Vital Signs Vital signs: Vital Signs Temp 98.6 F 11/12/24 14:35 Pulse 94 11/12/24 14:35 Resp 18 11/12/24 14:35 BP 109/73 11/12/24 14:35 Pulse Ox 97 11/12/24 14:35 FiO2 Intake & Output 11/11/24 11/12/24 11/12/24 18:59 06:59 18:59 Other: Voiding Method Toilet Toilet Toilet # Voids 3 2 2 - Exam GENERAL: The patient is lying in bed and is not in acute distress. NEUROLOGICAL: Higher mental function: The patient is awake, alert, oriented to self, place and time. Patient is following commands. No aphasia and no neglect. Cranial nerves: The pupils are round, equal and reactive to light and accommodation. Visual brown are full to confrontation throughout. Extraocular movement is intact no nystagmus is noted. Facial sensation is normal to touch throughout. The facial strength is normal throughout. Hearing is normal bilaterally to hand rub. Tongue is midline and moved [id number] without any difficulty. No dysarthria is noted. Shoulder shrug is normal bilaterally. Motor: Gait: Need mild one person assist to walk but not swaying one side or other. The strength is ankle plantar flexion are 4+ bilaterally. Otherwise 5 over 5 throughout. Normal tone and bulk. Cerebellum: Normal finger to nose but ataxic on heel to ward bilaterally. Sensation: Sensation is normal to touch throughout. Reflexes (right/left): Biceps 2/2; triceps 2-3/2-3; brachioradialis 2/2; patellar 0/0; ankles 0/0. Plantars are mute bilaterally. Some of the workup during this hospital visit consisted of: Initial wbc 11.29-->8.53K. ESR is 14 Calcium is 9.7, magnesium is 1.9, AST ALT is within normal limits BUN/creatinine is within normal limits Sodium is 136 and repeat is 139 CRP is 2.5 B12 is 292 RBC folate 619 Tissue Transglut IgA and IgG is negative. Lyme is negative CSF study: It is clear, colorless, red blood cells 0, total nucleated cells 2, glucose is 66 and total protein is 45. 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 She had EMG with NCS in 2022 as outpatient and showed right mild peroneal neuropathy but no polyneuropathy or radiculopathy. Unsteady gait with areflexic in the lower extremity and ataxic with heel to ward: Unclear cause. 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 Unsure if due to her vitamin deficiency leading to this. She has hx of B12 deficiency with current low normal B12 which can lead to neuropathy. Her current CSF again is normal and I feel less likely GBS. She is on Ozempic for weight loss over the past month and unsure if lead to this. Low normal vitamin B12: high 200 History of vitamin B12 deficiency and is on Vitamin B12 supplement History of SSA positive History of Probable GBS in 2022 but it does not seems patient had regular follow-up as outpatient. CSF study at that time was normal as well. Had MRI Brain to Lumbar which was unremarkable. She had EMG as outpatient with showed right mild peroneal neuropathy but no polyneuropathy or radiculopathy. She was on IVIG as inpatient and felt improvement. I feel maybe her Vitamin B12 deficiency lead to her symptoms and was not GBS. Her MRI in past was negative for any lesion suggestive of Multiple Sclerosis. History of Bipolar History of anxiety Obesity Nicotine use (Vapes) Plan: Pending MRI of the brain, cervical, thoracic and lumbar spine. She had MRI Brain, Cervical and Lumbar and pending official report. I personally reviewed them and I felt normal. The patient was given vitamin B12 1000 mcg IM once yesterday and after that p.o. I started the patient on IVIG 2g/kg over 5 days especially since had improvement on it in 2022. Pending Thiamine level, vitamin B6 level, oligoclonal panel. SSA and SSB are ordered. I ordered PAULA level, urine porphobilinogen (PBG), urine porhyrin fraction, plasma porphyrin, Influenza A/B and COVID2 PCR, heavy metals (mercury, lead, zinc, copper), homocystein, MMA Recommend psychiatry consultation to adjust the patient's medications since she feels her psych medications causing her to gain weight and she is in a spiral after that she is depressed PT and OT are consulted Patient was counseled on cessation of nicotine use. Will defer the rest of the medical management to primary and other specialist Recommend a repeat EMG with NCS as outpatient of lowers first then uppers. Recommend extensive lab work-up as outpatient that can lead to her symptoms. Recommend following-up in [facility]. The plan is discussed with patient and primary attending. Dr. Gonzalez will resume neurology service tomorrow then Dr. Ley this Friday. Time with Patient: Less than 30
[2024-11-12] MEDS ORDERED: IMMUNE GLOBULIN (GAMMAGARD) 5 GM in EMPTY BAG 1 BAG IV NR (17:00)
[2024-11-12] MEDS ORDERED: IMMUNE GLOBULIN (GAMMAGARD) 20 GM in EMPTY BAG 1 BAG IV NR (17:00)
[2024-11-12] MEDS: CYANOCOBALAMIN 500 MCG TAB PO SCH (17:43)
[2024-11-12 18:46] LABS: Influenza A Not Detected (Not Detectd); Influenza B Not Detected (Not Detectd); RSV Not Detected (Not Detectd)
--- NOTE | 2024-11-12 20:04 | MR ---
EXAMINATION TYPE: MR cspine/lspine wo/w con DATE OF EXAM: 11/12/2024 1:29 PM COMPARISON: None. CLINICAL INDICATION: Female, 23 years old with history of paresthesia, TECHNIQUE: Multiplanar multiecho imaging on a 3.0 Tatum magnet is performed through the cervical spin e. IV Contrast: mL (None, if empty) FINDINGS: The craniovertebral junction is normal. Vertebral body alignment is normal. Signal throu ghout the spinal cord is normal. Disc heights are preserved. Vertebral body heights are preserved. Di sc hydration is normal. C7-T1: No focal disc herniation or significant disc bulge is evident. No spinal canal stenosis or n eural foraminal stenosis is present. C6-7: No focal disc herniation or significant disc bulge is evident. No spinal canal stenosis or delgado ral foraminal stenosis is present. C5-6: No focal disc herniation or significant disc bulge is evident. No spinal canal stenosis or delgado ral foraminal stenosis is present. C4-5: No focal disc herniation or significant disc bulge is evident. No spinal canal stenosis or delgado ral foraminal stenosis is present. C3-4: No focal disc herniation or significant disc bulge is evident. No spinal canal stenosis or delagdo ral foraminal stenosis is present. C2-3: No focal disc herniation or significant disc bulge is evident. No spinal canal stenosis or delgado ral foraminal stenosis is present. Following contrast no abnormal enhancement is evident. IMPRESSION: 1. No acute abnormality pre and postcontrast MRI cervical spine. EXAMINATION TYPE: MR rafaine/lspine wo/w con DATE OF EXAM: 11/12/2024 1:29 PM COMPARISON: None. CLINICAL INDICATION: Female, 23 years old with history of paresthesia, TECHNIQUE: Multiplanar, multisequence images of the lumbar spine were acquired. IV Contrast: mL (None, if empty) FINDINGS: Cord terminates at the T12-L1. Disc heights are preserved. Disc hydration at all levels ar e normal. Vertebral body heights are preserved. No spondylolisthesis is evident. L5-S1: No focal disc herniation or significant disc bulge. No spinal canal stenosis. Neural foramen are patent. L4-L5: No focal disc herniation or significant disc bulge. No spinal canal stenosis. Neural foramen are patent. L3-L4: No focal disc herniation or significant disc bulge. No spinal canal stenosis. Neural foramen are patent. L2-L3: No focal disc herniation or significant disc bulge. No spinal canal stenosis. Neural foramen are patent. L1-L2: No focal disc herniation or significant disc bulge. No spinal canal stenosis. Neural foramen are patent. T12-L1: No focal disc herniation or significant disc bulge. No spinal canal stenosis. Neural forame n are patent. No abnormal enhancement is evident. IMPRESSION: 1. No suspicious acute abnormality MRI lumbar spine pre and postcontrast [facility] Alis Lainez, , 11/12/2024 8:02 PM
[2024-11-12] MEDS: IMMUNE GLOBULIN (GAMMAGARD) 20 GM in EMPTY BAG 1 BAG IV ONE ×2 (23:30)
[2024-11-13] MEDS: IMMUNE GLOBULIN (GAMMAGARD) 5 GM in EMPTY BAG 1 BAG IV ONE ×2 (01:17→20:56)
[2024-11-13 06:15] LABS: HCT 37.1 % (37.2-46.3); HGB 12.8 g/dL (12.0-15.0); MCH 32.3 pg (27.0-32.0); MCHC 34.5 g/dL (32.0-37.0); MCV 93.7 fL (80.0-97.0); Platelet Count 307 10*3/uL (140-440); RBC 3.96 10*6/uL (4.10-5.20); RDW 14.6 % (11.5-14.5)
[2024-11-13 06:28] LABS: African American GFR (CKD) >90 (>60 ml/min/1.73 sqM); Anion Gap 9 mmol/L; Blood Urea Nitrogen 17 mg/dL (7-17); Calcium 9.4 mg/dL (8.4-10.2); Carbon Dioxide 27 mmol/L (22-30); Chloride 102 mmol/L (98-107); Glucose 89 mg/dL (74-99); Non-African American GFR(CKD) >90 (>60 ml/min/1.73 sqM); Potassium 4.2 mmol/L (3.5-5.1); Sodium 138 mmol/L (137-145)
--- NOTE | 2024-11-13 11:36 | P.PN ---
Subjective Progress Note Date: 11/13/24 23 year old female with past medical history of vitamin B12 deficiency, possible Guillain Tong presented to the ED with bilateral lower extremity weakness. Patient states that when she woke up this morning she had tingling and weakness in her bilateral lower extremities. Weakness extended from her feet to her knees. Associated with that she also had weakness which was so severe that she fell down a flight of stairs. She hit her head on the cement. She was not able to get up on her own. She denies losing consciousness. Her mother mentions that her gait has been off and that she would sway to the sides while walking. She reports having similar symptoms last year. At the time she had ascending bi lateral lower extremity weakness, extending gradually from her feet to her thighs. She was diagnosed with Guillain-Tong. Patient was admitted from 06/22/2023 to 06/26/2023 with similar symptoms. She had a lumbar puncture on 06/22/2023. During that hospital stay she underwent an MRI brain and lumbar spine which were unremarkable with no cause of her paresthesias. Her vitamin B12 level was found to be less than 150 and her vitamin D was low. Neurology was consulted and lumbar puncture was preformed. CSF study was unremarkable. MRI thoracic spine limited by motion with no abnormal postcontrast enhancement. Cervical spine MRI: No evidence for disc herniation or significant spinal stenosis. Her B6 level was found to be 6 with normal 5-50 and she was therefore started on B6 supplementation. Immunofixation, HIV, Lyme's titer, vitamin E, thiamine, mercury levels, copper levels, CMP, syphilis testing all came back normal. She received 5 doses of IVIG for possible Guillain-Tong syndrome syndrome. She had some improvement in her symptoms. She did have a positive SSA but a negative SSB. Since then she did she neurologist and a electrical machinist once but was not able to follow-up. 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 Repeat EMG was supposed to be done in 6 months but she wasn't able to keep that appointment. Patient also reports having a family history of MS in mother's aunt and cousin. Patient also had an EGD done in July 2023 for Vitamin B12 deficiency that showed midl antral gastritis, no evidence of peptic ulcer or esophagitis. Denies fever, chills, shortness of breath, cough, chest pain, palpitations, abdominal pain, nausea, vomiting, hematuria, dysuria, hematochezia, melena, headache, slurred speech, dizziness, lightheadedness, blurred vision, double vision. ED documentation reviewed. 11/11 - She is seen and examined at bedside this morning. Without any acute events overnight, no acute complaints at this time. 11/12 - She is seen and examined at bedside this morning. No acute events overnight. Late yesterday afternoon, was reported she had some discomfort at the site of the lumbar puncture, lidocaine patch was ordered, with some improvement of her symptoms. She is scheduled to undergo MRI brain, cervical spine, thoracic spine, lumbar spine today. 11/13 - She is seen and examined at bedside this morning. Without any acute events overnight, no acute complaints at this time. She tolerated her first course of IVIG yesterday without issue. REVIEW OF SYSTEMS: Pertinent positives and negatives noted in HPI. Physical Exam: Vital signs reviewed General: no distress, appears at stated age Derm: warm, dry, intact Head: atraumatic, normocephalic, symmetric Eyes: EOMI, anicteric sclera Mouth: no lip lesion, mucus membranes moist Cardiovascular: S1 S2 reg, no murmur Lungs: CTA bilateral, no rhonchi, no rales, no accessory muscle use Abdominal: soft, non-tender to palpation Extremities: No cyanosis, clubbing, or pedal edema. Neuro: Alert, Oriented, strength 4/5 in all four extremities, numbness on touch from foot to knees bilaterally, Indeterminate heel to ward test bilaterally likely due to body habitus, Finger to nose test performed without difficulty, ataxic gait Psych: cooperative Data Received Today: Labs: WBCs 5.90, hemoglobin 12.8, hematocrit 37.1, platelet 307; sodium 138, potassium 4.2, BUN 17, creatinine 0.64, calcium 9.4 -Vitamin D 1, 25 dihydroxy 63.3, folate RBC 619, homocystine 46.90, SSA and SSB antibody negative, Cepheid 4 Plex all negative, PAULA screen negative Imagining: -Brain MRI shows no acute intracranial process -MRI C-spine/L-spine showed no suspicious acute abnormality in either cervical or lumbar Assessment and plan Patient is a 23 year old female with past medical history of vitamin B12 deficiency, possible Guillain Tong presented to the ED with bilateral lower extremity weakness. #Bilateral lower extremity weakness and numbness, unclear etiology #Possible Guillain-Tong vs Multiple sclerosis #Vitamin B12 deficiency #Suspected celiac disease -Brain CT shows no acute intracranial process, done to rule out increased intracranial pressure -Obtain thiamine, vitamin B6, Vitamin D, intrinsic factor antibody, MS panel, Myelin basic protein (CSF) -IgA 136, transglutamine antibody negative, CRP 2.5, ESR 14, vitamin B12 292, RBC folate 619, Lyme disease screen IgG and IgM both negative, endomysial IgA antibody <1:10, PAULA screen negative -Given vitamin B12 1000 mcg IM once, initiate oral vitamin B12 after that -MRI brain, C-spine and L-spine completed, reports read and reviewed -MRI thoracic spine remains pending at this time -Lumbar puncture showed clear appearance, colorless with 2 total nucleated lisandra ls, glucose 66, total protein 45; CSF culture and Gram stain preliminarily negative -Continue with IVIG 2 g/kg over the course of 5 days (day 2 today) since she was noted to have improvement in 2022 -Physical therapy and Occupational Therapy consulted #Leukocytosis, likely reactive, resolved -WBC 5.90 this morning -Monitor CBC Chronic: #Vitamin D deficiency #Bipolar disorder #ADHD #Tobacco dependence -Continue bupropion 300 mg p.o. daily, cariprazine 1.5 mg p.o. at bedtime, lamotrigine 50 mg p.o. daily, lisdexamfetamine dimesylate 20 mg p.o. daily, norgestimate ethinyl estradiol 1 each p.o. at bedtime -Consider psychiatry consultation for recommendations regarding psych medications DVT ppx: GI ppx: Protonix 40 mg daily Code status: Full code F: None E: Replete as needed N: Regular diet A: Ambulatory at baseline Anticipated discharge place: Home Anticipated discharge time: Pending clinical course Dictation was produced using [employer] dictation software. please excuse any grammatical, word or spelling errors. Jayden San MD PGY-1 IM I have seen and evaluated the patient today. Discussed with the resident and agree with the residents finding and plan as documented in the resident's note. Changes highlighted in blue font. Objective - Vital Signs Vital signs: Vital Signs Temp 98.2 F 11/13/24 00:39 Pulse 82 11/13/24 01:30 Resp 18 11/13/24 00:39 BP 123/85 11/13/24 01:30 Pulse Ox 99 11/13/24 01:30 FiO2 Intake & Output 11/12/24 11/13/24 11/13/24 18:59 06:59 18:59 Intake Total 90.0 Balance 90.0 Intake: Intake, IV Titration 90.0 Amount Immune Globulin ( 90.0 Gammagard) 20 gm In Empty Bag 1 bag @ Titrate IV . Q0M ONE Rx#:[id number] Other: Voiding Method Toilet Toilet # Voids 2 2 - Labs CBC & Chem 7: 11/13/24 04:43 11/13/24 04:43 Labs: Abnormal Lab Results - Last 24 Hours (Table) 11/12/24 11/13/24 Range/Units 19:03 04:43 RBC 3.96 L (4.10-5.20) 10*6/uL Hct 37.1 L (37.2-46.3) % MCH 32.3 H (27.0-32.0) pg RDW 14.6 H (11.5-14.5) % MPV 9.0 L (9.5-12.2) fL Homocysteine 46.90 H (4.00-14.00) UMOL/L Microbiology - Last 24 Hours (Table) 11/11/24 00:20 CSF Gram Stain - Preliminary Cerebral Spinal Fluid CSF Culture - Preliminary
--- NOTE | 2024-11-13 16:58 | P.PN ---
Subjective Progress Note Date: 11/13/24 The patient is a 23-year-old female who was seen in neurologic follow-up on November 13, 2024, in collaboration with Carly Monroy, via teleneurology. The patient's chart has been reviewed. Today is day 2 of IVIG. The patient reports tolerating her first dose without difficulty. The patient reports that she was able to get up and walk to the bathroom today. She denies difficulty with breathing. There is no difficulty with bowel or bladder control. No numbness, tingling or weakness in her upper extremities. The patient/friend who is present at the bedside at the time of evaluation expresses some concern regarding positioning of the patient's feet. They are reportedly turned inward. The patient does report a headache. She denies changes in the headache, with change in position. She says the headache began following her lumbar puncture. She also reports pain in her neck. 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 She says that she did get benefit from that treatment. MRI of the brain, cervical and lumbar spines are normal. CSF is normal. CSF protein is 45. Objective - Vital Signs Vital signs: Vital Signs Temp 98.1 F 11/13/24 07:00 Pulse 85 11/13/24 07:00 Resp 16 11/13/24 07:00 BP 107/66 11/13/24 07:00 Pulse Ox 97 11/13/24 07:00 FiO2 Intake & Output 11/12/24 11/13/24 11/13/24 18:59 06:59 18:59 Intake Total 90.0 Balance 90.0 Intake: Intake, IV Titration 90.0 Amount Immune Globulin ( 90.0 Gammagard) 20 gm In Empty Bag 1 bag @ Titrate IV . Q0M ONE Rx#:[id number] Other: Voiding Method Toilet Toilet # Voids 2 2 - Exam General: The patient is reclining in the bed, well-nourished, well-developed and in no acute distress. HEENT: Head is atraumatic, normocephalic. Fundus not visualized. There is no scleral icterus. Mucous membranes are moist. Extremities: Without edema Cranial nerves: Pupils are equal, and reactive at 3 mm. Visual brown are full to confrontation. Extraocular movements are intact. There is no nystagmus. Facial sensation is intact. There is no facial asymmetry. Hearing is diminished. Uvula and palate are midline. Shoulder shrug is symmetric. Tongue protrudes midline without bite. Motor: Strength is 5/5 throughout, with the exception of the left hip flexor at 4/5. Bilateral ankle inverters 5/5. Coordination: [id number]-[id number], rapid alternating movements and [id number]-[id number] testing are intact. Deep tendon reflexes: 2+/4+ at the bilateral biceps, triceps, brachioradialis and patellar reflexes. Achilles reflexes are absent. Plantar responses are flexor bilaterally. 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 She presents to the emergency department because of unsteady gait and numbness in the lower extremity. She had EMG with NCS in 2022 as outpatient and showed right mild peroneal neuropathy but no polyneuropathy or radiculopathy. Unsteady gait with areflexic at the Achilles reflex: Unclear cause. 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 Unsure if due to her vitamin deficiency leading to this. She has hx of B12 deficiency with current low normal B12 which can lead to neuropathy. Her current CSF again is normal and I feel less likely GBS. She is on Ozempic for weight loss over the past month and unsure if lead to this. Low normal vitamin B12: high 200 History of vitamin B12 deficiency and is on Vitamin B12 supplement History of SSA positive, repeat is negative History of Probable GBS in 2022 but it does not seems patient had regular follow-up as outpatient. CSF study at that time was normal as well. Had MRI Brain to Lumbar which was unremarkable. She had EMG as outpatient with showed right mild peroneal neuropathy but no polyneuropathy or radiculopathy. She was on IVIG as inpatient and felt improvement. I feel maybe her Vitamin B12 deficiency lead to her symptoms and was not GBS. History of Bipolar History of anxiety Obesity Nicotine use (Vapes) Current MRI of the brain, cervical and lumbar spine is normal. There is no evidence of any type of lesion suggestive of multiple sclerosis Plan: 1. The patient was given vitamin B12 1000 mcg IM once yesterday and after that p.o. 2. Continue IVIG 2g/kg over 5 days especially since had improvement on it in 2022-today is day 2 3. Pending Thiamine level, vitamin B6 level, oligoclonal panel. 4. Lab tests including urine porphobilinogen (PBG), urine porhyrin fraction, plasma porphyrin, Influenza A/B and COVID2 PCR, heavy metals (mercury, lead, zinc, copper), homocystein, MMA 5. Recommend psychiatry consultation to adjust the patient's medications since she feels her psych medications causing her to gain weight and she is in a spiral after that she is depressed 6. PT and OT are consulted 7. Patient was counseled on cessation of nicotine use. 8. Will defer the rest of the medical management to primary and other specialist 9. Recommend a repeat EMG with NCS as outpatient of lowers first then uppers. 10. Recommend extensive lab work-up as outpatient that can lead to her symptoms. Recommend following-up in [facility]. Time with Patient: Greater than 30 (40 minutes were spent caring for this patient today including, obtaining history, examining the patient, reviewing imaging, chart documentation, labs, placing orders and creating this note)
[2024-11-14 06:43] LABS: Basophils # (A) 0.01 10*3/uL (0.00-0.10); Basophils % (A) 0.2 %; Eosinophils # (A) 0.28 10*3/uL (0.04-0.35); Eosinophils % (A) 5.2 %; HCT 37.9 % (37.2-46.3); HGB 12.6 g/dL (12.0-15.0); Lymphocytes # (A) 2.61 10*3/uL (0.90-5.00); Lymphocytes % (A) 48.2 %; MCH 31.2 pg (27.0-32.0); MCHC 33.2 g/dL (32.0-37.0); MCV 93.8 fL (80.0-97.0); Mean Platelet Volume 8.9 fL (9.5-12.2); Monocytes % (A) 12.9 %; Neutrophils # (A) 1.79 10*3/uL (1.80-7.70); Neutrophils % (A) 33.1 %; Platelet Count 332 10*3/uL (140-440); RBC 4.04 10*6/uL (4.10-5.20); RDW 14.5 % (11.5-14.5); WBC 5.41 10*3/uL (4.50-10.00)
[2024-11-14 07:01] LABS: African American GFR (CKD) >90 (>60 ml/min/1.73 sqM); Anion Gap 9 mmol/L; Blood Urea Nitrogen 17 mg/dL (7-17); Carbon Dioxide 28 mmol/L (22-30); Chloride 103 mmol/L (98-107); Glucose 100 mg/dL (74-99); Non-African American GFR(CKD) >90 (>60 ml/min/1.73 sqM); Potassium 4.2 mmol/L (3.5-5.1); Sodium 140 mmol/L (137-145)
--- NOTE | 2024-11-14 11:36 | P.PN ---
Subjective Progress Note Date: 11/14/24 Subjective: Patient seen and examined at bedside. No acute events overnight. Pertinent positives and negatives as discussed above, a complete review of systems was performed and all other systems are negative. Vitals Signs Reviewed. General: Nontoxic, no distress, appears at stated age, obese Derm: Warm, dry Head: Atraumatic, normocephalic, symmetric Eyes: EOMI, no lid lag, anicteric sclera Mouth: No lip lesion, mucus membranes moist Cardiovascular: S1S2 reg, no murmur Lungs: CTA bilateral, no rhonchi, no rales, no accessory muscle use Abdominal: Soft, nontender to palpation, no guarding, no appreciable organomegaly Ext: No gross muscle atrophy, no edema, no contractures Neuro: CN II-XI grossly intact, no focal neuro deficits Psych: Alert, oriented, appropriate affect Data Reviewed Today: Pertinent Labs: WBC 5.41, hemoglobin 12.6, creatinine 0.72 Imaging: No new imaging Assessment and Plan: Active: 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 Vitamin B deficiency - Continue IVIG, day 3 - Neurology following - Continue B12 1000 mcg daily - Heavy metal panel pending - Patient will likely need extensive workup outpatient Chronic: Bipolar disorder Anxiety disorder GERD DVT ppx: Lovenox Code status: Full code Anticipated discharge place: Pending clinical course Anticipated discharge time: Pending clinical course Objective - Vital Signs Vital signs: Vital Signs Temp 98.4 F 11/14/24 07:00 Pulse 78 11/14/24 07:00 Resp 16 11/14/24 07:00 BP 104/67 11/14/24 07:00 Pulse Ox 98 11/14/24 07:00 FiO2 Intake & Output 11/13/24 11/14/24 11/14/24 18:59 06:59 18:59 Intake Total 174.25 591 118 Balance 174.25 591 118 Intake: Intake, IV Titration 56.25 Amount Immune Globulin ( 56.25 Gammagard) 20 gm In Empty Bag 1 bag @ Per Protocol IV .Q0M ONE Rx#: [id number] Oral 118 591 118 Other: # Voids 3 3 - Labs CBC & Chem 7: 11/14/24 06:00 11/14/24 06:00 Labs: Abnormal Lab Results - Last 24 Hours (Table) 11/14/24 11/14/24 Range/Units 06:00 06:00 RBC 4.04 L (4.10-5.20) 10*6/uL MPV 8.9 L (9.5-12.2) fL Neutrophils # 1.79 L (1.80-7.70) 10*3/uL Glucose 100 H (74-99) mg/dL Microbiology - Last 24 Hours (Table) 11/11/24 00:20 CSF Gram Stain - Preliminary Cerebral Spinal Fluid CSF Culture - Preliminary
--- NOTE | 2024-11-14 13:17 | P.PN ---
Subjective Progress Note Date: 11/14/24 The patient is a 23-year-old female who was seen in neurologic follow-up on November 13, 2024, in collaboration with Carly Monroy, via teleneurology. The patient's chart has been reviewed. Today is day 2 of IVIG. The patient reports tolerating her first dose without difficulty. The patient reports that she was able to get up and walk to the bathroom today. She denies difficulty with breathing. There is no difficulty with bowel or bladder control. No numbness, tingling or weakness in her upper extremities. The patient/friend who is present at the bedside at the time of evaluation expresses some concern regarding positioning of the patient's feet. They are reportedly turned inward. The patient does report a headache. She denies changes in the headache, with change in position. She says the headache began following her lumbar puncture. She also reports pain in her neck. 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 She says that she did get benefit from that treatment. MRI of the brain, cervical and lumbar spines are normal. CSF is normal. CSF protein is 45. The patient is seen in neurologic follow-up on November 14, 2024, in collaboration with Carly Monroy, via teleneurology. The patient reports mild improvement in her lower extremity strength. She says that her headache continues. Today, she notices that her headache is worse when she is upright, as opposed to laying down. The headache does not completely resolve, when she is supine. She is tolerating the IVIG. Today is day 3. Objective - Vital Signs Vital signs: Vital Signs Temp 98.4 F 11/14/24 07:00 Pulse 78 11/14/24 07:00 Resp 16 11/14/24 07:00 BP 104/67 11/14/24 07:00 Pulse Ox 98 11/14/24 07:00 FiO2 Intake & Output 11/13/24 11/14/24 11/14/24 18:59 06:59 18:59 Intake Total 174.25 591 118 Balance 174.25 591 118 Intake: Intake, IV Titration 56.25 Amount Immune Globulin ( 56.25 Gammagard) 20 gm In Empty Bag 1 bag @ Per Protocol IV .Q0M ONE Rx#: [id number] Oral 118 591 118 Other: # Voids 3 3 - Exam General: The patient is seated in the bed, well-nourished, well-developed and in no acute distress. HEENT: Head is atraumatic, normocephalic. Fundus not visualized. There is no scleral icterus. Mucous membranes are moist. Extremities: Without edema Neck: Supple Cranial nerves: Pupils are equal, and reactive at 3 mm. Visual brown are full to confrontation. Extraocular movements are intact. There is no nystagmus. Facial sensation is intact. There is no facial asymmetry. Hearing is diminished. Uvula and palate are midline. Shoulder shrug is symmetric. Tongue protrudes midline without bite. Sensation: Intact throughout Gait: The patient is observed ambulating with the assistance of a walker. Gait is steady. 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 She presents to the emergency department because of unsteady gait and numbness in the lower extremity. She had EMG with [facility] in 2022 as outpatient and showed right mild peroneal neuropathy but no polyneuropathy or radiculopathy. Unsteady gait with areflexic at the Achilles reflex: Unclear cause. 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 Unsure if due to her vitamin deficiency leading to this. She has hx of B12 deficiency with current low normal B12 which can lead to neuropathy. Her current CSF again is normal and I feel less likely GBS. She is on Ozempic for weight loss over the past month and unsure if lead to this. Low normal vitamin B12: high 200 History of vitamin B12 deficiency and is on Vitamin B12 supplement History of SSA positive, repeat is negative History of Probable GBS in 2022 but it does not seems patient had regular follow-up as outpatient. CSF study at that time was normal as well. Had MRI Brain to Lumbar which was unremarkable. She had EMG as outpatient with showed right mild peroneal neuropathy but no polyneuropathy or radiculopathy. She was on IVIG as inpatient and felt improvement. I feel maybe her Vitamin B12 deficiency lead to her symptoms and was not GBS. History of Bipolar History of anxiety Obesity Nicotine use (Vapes) Current MRI of the brain, cervical and lumbar spine is normal. There is no evidence of any type of lesion suggestive of multiple sclerosis Headache, likely secondary to IVIG Plan: 1. The patient was given vitamin B12 1000 mcg IM once yesterday and after that p.o. 2. Continue IVIG 2g/kg over 5 days especially since had improvement on it in 2022-today is day 2 3. Pending Thiamine level, vitamin B6 level, oligoclonal panel. 4. Lab tests including urine porphobilinogen (PBG), urine porhyrin fraction, p lasma porphyrin, Influenza A/B and COVID2 PCR, heavy metals (mercury, lead, zinc, copper), homocystein, MMA 5. Recommend psychiatry consultation to adjust the patient's medications since she feels her psych medications causing her to gain weight and she is in a spiral after that she is depressed 6. Sumatriptan has been ordered to treat the patient's headache associated with IVIG 7. Patient was counseled on cessation of nicotine use. 8. Will defer the rest of the medical management to primary and other specialist 9. Recommend a repeat EMG with [facility] as outpatient of lowers first then uppers. 10. Recommend extensive lab work-up as outpatient that can lead to her symptoms. Recommend following-up in [facility]. 11. Dr. Ley will assume neurologic coverage of this patient as of November 15, 2024 Time with Patient: Greater than 30 (35 minutes were spent caring for this patient today including, obtaining an interim history, examining the patient, reviewing chart documentation, labs, placing orders and creating this note)
[2024-11-14] MEDS: IMMUNE GLOBULIN (GAMMAGARD) 5 GM in EMPTY BAG 1 BAG IV ONE (18:23)
[2024-11-14] MEDS: SUMAtriptan succinate 50 MG TAB PO STA (18:23)
[2024-11-14] MEDS: IMMUNE GLOBULIN (GAMMAGARD) 20 GM in EMPTY BAG 1 BAG IV ONE (19:01)
[2024-11-15] MEDS: ENOXAPARIN 40 MG/0.4 ML SYRINGE SQ SCH (09:14)
--- NOTE | 2024-11-15 11:06 | P.PN ---
Subjective Progress Note Date: 11/15/24 23 year old female with past medical history of vitamin B12 deficiency, possible Guillain Tong presented to the ED with bilateral lower extremity weakness. Patient states that when she woke up this morning she had tingling and weakness in her bilateral lower extremities. Weakness extended from her feet to her knees. Associated with that she also had weakness which was so severe that she fell down a flight of stairs. She hit her head on the cement. She was not able to get up on her own. She denies losing consciousness. Her mother mentions that her gait has been off and that she would sway to the sides while walking. She reports having similar symptoms last year. At the time she had ascending bi lateral lower extremity weakness, extending gradually from her feet to her thighs. She was diagnosed with Guillain-Tong. Patient was admitted from 06/22/2023 to 06/26/2023 with similar symptoms. She had a lumbar puncture on 06/22/2023. During that hospital stay she underwent an MRI brain and lumbar spine which were unremarkable with no cause of her paresthesias. Her vitamin B12 level was found to be less than 150 and her vitamin D was low. Neurology was consulted and lumbar puncture was preformed. CSF study was unremarkable. MRI thoracic spine limited by motion with no abnormal postcontrast enhancement. Cervical spine MRI: No evidence for disc herniation or significant spinal stenosis. Her B6 level was found to be 6 with normal 5-50 and she was therefore started on B6 supplementation. Immunofixation, HIV, Lyme's titer, vitamin E, thiamine, mercury levels, copper levels, CMP, syphilis testing all came back normal. She received 5 doses of IVIG for possible Guillain-Tong syndrome syndrome. She had some improvement in her symptoms. She did have a positive SSA but a negative SSB. Since then she did she neurologist and a tomato paste maker once but was not able to follow-up. 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 Repeat EMG was supposed to be done in 6 months but she wasn't able to keep that appointment. Patient also reports having a family history of MS in mother's aunt and cousin. Patient also had an EGD done in July 2023 for Vitamin B12 deficiency that showed midl antral gastritis, no evidence of peptic ulcer or esophagitis. Denies fever, chills, shortness of breath, cough, chest pain, palpitations, abdominal pain, nausea, vomiting, hematuria, dysuria, hematochezia, melena, headache, slurred speech, dizziness, lightheadedness, blurred vision, double vision. ED documentation reviewed. 11/11 - She is seen and examined at bedside this morning. Without any acute events overnight, no acute complaints at this time. 11/12 - She is seen and examined at bedside this morning. No acute events overnight. Late yesterday afternoon, was reported she had some discomfort at the site of the lumbar puncture, lidocaine patch was ordered, with some improvement of her symptoms. She is scheduled to undergo MRI brain, cervical spine, thoracic spine, lumbar spine today. 11/13 - She is seen and examined at bedside this morning. Without any acute events overnight, no acute complaints at this time. She tolerated her first course of IVIG yesterday without issue. 11/14 - Patient seen and examined at bedside. No acute events overnight. 11/15 - She is seen and examined at bedside this morning. No acute events o vernight and endorses some generalized neck pain, however has no other complaints at this time. REVIEW OF SYSTEMS: Pertinent positives and negatives noted in HPI. Physical Exam: Vital signs reviewed General: no distress, appears at stated age Derm: warm, dry, intact Head: atraumatic, normocephalic, symmetric Eyes: EOMI, anicteric sclera Mouth: no lip lesion, mucus membranes moist Cardiovascular: S1 S2 reg, no murmur Lungs: CTA bilateral, no rhonchi, no rales, no accessory muscle use Abdominal: soft, non-tender to palpation Extremities: No cyanosis, clubbing, or pedal edema. Neuro: Alert, Oriented, strength 4/5 in all four extremities, numbness on touch from foot to knees bilaterally, Indeterminate heel to ward test bilaterally likely due to body habitus, Finger to nose test performed without difficulty, ataxic gait Psych: cooperative Data Received Today: Labs: No new labs today Imagining: Thoracic spine MRI to be completed today Assessment and plan Patient is a 23 year old female with past medical history of vitamin B12 deficiency, possible Guillain Tong presented to the ED with bilateral lower extremity weakness. #Possible acute demyelinating neuropathy/polyneuropathy #Possible history of GBS #Vitamin B12 deficiency -Continue with IVIG 2 g/kg over the course of 5 days (day 4/5 today) -Neurology following -Continue vitamin B12 1000 mcg daily -Heavy metal panel pending -She will likely need extensive workup outpatient -Physical therapy and Occupational Therapy consulted #New onset neck discomfort, likely musculoskeletal related -Ordered heat pack and Voltaren gel -Reassess as needed Chronic: #Vitamin D deficiency #Bipolar disorder #ADHD #Tobacco dependence -Continue bupropion 300 mg p.o. daily, cariprazine 1.5 mg p.o. at bedtime, lamotrigine 50 mg p.o. daily, lisdexamfetamine dimesylate 20 mg p.o. daily, norgestimate ethinyl estradiol 1 each p.o. at bedtime -Consider psychiatry consultation for recommendations regarding psych medications DVT ppx: Lovenox 40 mg daily GI ppx: Protonix 40 mg daily Code status: Full code F: None E: Replete as needed N: Regular diet A: Ambulatory at baseline Anticipated discharge place: Home Anticipated discharge time: Likely tomorrow Dictation was produced using [employer] dictation software. please excuse any grammatical, word or spelling errors. Jayden San MD PGY-1 IM I have seen and evaluated the patient today. Discussed with the resident and agree with the residents finding and plan as documented in the resident's note. Changes highlighted in blue font. Objective - Vital Signs Vital signs: Vital Signs Temp 98.4 F 11/15/24 02:00 Pulse 89 11/15/24 02:00 Resp 17 11/15/24 02:00 BP 101/65 11/15/24 02:00 Pulse Ox 98 11/15/24 02:00 FiO2 Intake & Output 11/14/24 11/15/24 11/15/24 18:59 06:59 18:59 Intake Total 255.5 Balance 255.5 Intake: Intake, IV Titration 19.5 Amount Immune Globulin ( 19.5 Gammagard) 5 gm In Empty Bag 1 bag @ Titrate IV . Q0M ONE Rx#:[id number] Oral 236 Other: # Voids 3 2 - Labs CBC & Chem 7: 11/14/24 06:00 11/14/24 06:00 Labs: Microbiology - Last 24 Hours (Table) 11/11/24 00:20 CSF Gram Stain - Final Cerebral Spinal Fluid CSF Culture - Final
[2024-11-15 11:11] LABS: Lead, Blood <0.5 ug/dL (<5.0)
[2024-11-15] MEDS: ALPRAZolam 0.5 MG TAB PO STA ×2 (12:12→12:14)
--- NOTE | 2024-11-15 13:42 | MR ---
INDICATION: Patient age:Female; 23 years old; Reason for study: paresthesia; PHH. COMPARISON: MRI C-spine/L-spine 11/12/2024. TECHNIQUE: Multi planar, multi sequence imaging was performed utilizing: T1-weighted, T2-weighted, an d turbo inversion recovery imaging of the thoracic spine. The patient was given 9 mL Gadobutrol intra venously. FINDINGS: The thoracic vertebral bodies have preserved heights and alignment. The osseous structure have normal signal intensity. Thoracic spinal cord appears unremarkable. No abnormal STIR signal. There is no ev idence of extradural defects or central spinal canal narrowing at any thoracic vertebral body level. Intervertebral discs demonstrate normal signal intensity. No abnormal contrast enhancement. IMPRESSION: Normal MRI of the thoracic spine without suspicious abnormality. [facility], , 11/15/2024 1:40 PM
--- NOTE | 2024-11-15 14:21 | P.PN ---
Subjective Progress Note Date: 11/15/24 Patient was initially seen by Dr. Dakota Allison and then followed up by Dr. Gonzalez. Please refer to their notes for details. Patient is a 23-year-old female who presented with unsteady gait, numbness. Dr. Allison felt patient has areflexia. She has similar presentation in 2022 and all workup was negative except for B12 deficiency and SSA antibodies positive. Her previous CSF and current CSF studies are all normal. Dr. Allison started the patient on IVIG. She has received 4/5 doses of IVIG. Tonight will be the last dose. Patient's mother was also present by the bedside. Patient has developed head ache, which is about 7/10 when she is laying down, when she gets up it is 10/10. She was given Imitrex injection yesterday, which helped marginally. Is a pulsating throbbing headache. No rash. Objective - Vital Signs Vital signs: Vital Signs Temp 98.4 F 11/15/24 07:00 Pulse 83 11/15/24 07:00 Resp 18 11/15/24 07:00 BP 101/63 11/15/24 07:00 Pulse Ox 96 11/15/24 07:00 FiO2 Intake & Output 11/14/24 11/15/24 11/15/24 18:59 06:59 18:59 Intake Total 255.5 118 Balance 255.5 118 Intake: Intake, IV Titration 19.5 Amount Immune Globulin ( 19.5 Gammagard) 5 gm In Empty Bag 1 bag @ Titrate IV . Q0M ONE Rx#:[id number] Oral 236 118 Other: # Voids 3 2 - Exam Mental status, speech and language functions are normal. Cranial nerves are normal. On muscle strength testing, the strength is normal in arms and legs distally and proximally. Deep tendon reflexes are 2 to 2+ in both biceps and brachioradialis. Absent in the lower limbs and plantars are probable upgoing bilaterally. No ataxia for [id number] or [id number] testing. Sensory to the touch is equal. 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 She presents to the emergency department because of unsteady gait and numbness in the lower extremity. She had EMG with [facility] in 2022 as outpatient and showed right mild peroneal neuropathy but no polyneuropathy or radiculop athy. Unsteady gait with areflexic at the Achilles reflex: Unclear cause. 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 Unsure if due to her vitamin deficiency leading to this. She has hx of B12 deficiency with current low normal B12 which can lead to neuropathy. Her current CSF again is normal and I feel less likely GBS. She is on Ozempic for weight loss over the past month and unsure if lead to this. Low normal vitamin B12: high 200 History of vitamin B12 deficiency and is on Vitamin B12 supplement History of SSA positive, repeat is negative History of Probable GBS in 2022 but it does not seems patient had regular follow-up as outpatient. CSF study at that time was normal as well. Had MRI Brain to Lumbar which was unremarkable. She had EMG as outpatient with showed right mild peroneal neuropathy but no polyneuropathy or radiculopathy. She was on IVIG as inpatient and felt improvement. I feel maybe her Vitamin B12 deficiency lead to her symptoms and was not GBS. History of Bipolar History of anxiety Obesity Nicotine use (Vapes) Current MRI of the brain, cervical and lumbar spine is normal. There is no evidence of any type of lesion suggestive of multiple sclerosis Headache, likely secondary to IVIG Plan: 1. The patient was given vitamin B12 1000 mcg IM once on admission and after that p.o. 2. Continue IVIG 2g/kg, divided over 5 days especially since had improvement on it in 2022-today is day #4 3. Pending Thiamine level, vitamin B6 level, oligoclonal panel. 4. Lab tests including urine porphobilinogen (PBG), urine porhyrin fraction, plasma porphyrin, Influenza A/B and COVID2 PCR, heavy metals (mercury, lead, zi nc, copper), homocystein, MMA 5. Recommend psychiatry consultation to adjust the patient's medications since she feels her psych medications causing her to gain weight and she is in a spiral after that she is depressed 6. Sumatriptan has been ordered to treat the patient's headache associated with IVIG 7. Patient was counseled on cessation of nicotine use. 8. Will defer the rest of the medical management to primary and other specialist 9. Recommend a repeat EMG with [facility] as outpatient of lowers first then uppers. 10. Recommend extensive lab work-up as outpatient that can lead to her sym ptoms. Recommend following-up in [facility].
[2024-11-15 15:22] LABS: Zinc, Serum 52 ug/dL (60-130)
[2024-11-15] MEDS: BUTALB/APAP/CAFF 50-325-40MG TAB PO PRN (16:59)
[2024-11-15] MEDS: IMMUNE GLOBULIN (GAMMAGARD) 20 GM in EMPTY BAG 1 BAG IV ONE (18:06)
[2024-11-15] MEDS: DICLOFENAC SODIUM GEL 100 GM TUBE TOPICAL PRN (19:04)
[2024-11-15] MEDS: IMMUNE GLOBULIN (GAMMAGARD) 5 GM in EMPTY BAG 1 BAG IV ONE (20:58)
[2024-11-16 07:56] VITALS: RESP 16
[2024-11-16 08:10] LABS: Methylmalonic Acid >5.00 umol/L (<0.40)
--- NOTE | 2024-11-16 11:31 | P.DS ---
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 Patient states that when she woke up this morning she had tingling and weakness in her bilateral lower extremities. Weakness extended from her feet to her knees. Associated with that she also had weakness which was so severe that she fell down a flight of stairs. She hit her head on the cement. She was not able to get up on her own. She denies losing consciousness. Her mother mentions that her gait has been off and that she would sway to the sides while walking. She reports having similar symptoms last year. At the time she had ascending bilateral lower extremity weakness, extending gradually from her feet to her thighs. This prompted her to come to the emergency department for further evaluation. 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 During her stay she underwent extensive imaging with brain CT, cervical/thoracic/lumbar spine MRI and brain MRI all of which showed no evidence of abnormality. Additionally, extensive lab workup was completed which all came back negative, however she was noted to have some deficiency in her zinc levels as well as an elevated methylmalonic acid, indicative of vitamin B12 deficiency. She was seen and evaluated by neurology during her stay here. It was per neurology's recommendation she was initiated on IVIG, has had helped her in the past when she has experienced a similar episode. She received 5 days worth of IVIG during her stay. She did note some headaches during the last couple of days, which is believed to have been secondary to the IVIG infusions. Discussed with her the importance of outpatient follow-up with the primary care physician as well as following up on her repeat EMG to further evaluate. Additionally, discussed with her the importance of maintaining regular rate vitamin B12 supplementation, and a prescription will be given for additional vitamin B12 upon discharge today. She verbalized understanding is agreeable to all of this and is very excited to be discharged today following her final round of IVIG. Physical Exam: Vital signs reviewed General: no distress, appears at stated age Derm: warm, dry, intact Head: atraumatic, normocephalic, symmetric Eyes: EOMI, anicteric sclera Mouth: no lip lesion, mucus membranes moist Cardiovascular: S1 S2 reg, no murmur Lungs: CTA bilateral, no rhonchi, no rales, no accessory muscle use Abdominal: soft, non-tender to palpation Extremities: No cyanosis, clubbing, or pedal edema. Neuro: Alert, Oriented, strength 5/5 in all four extremities Psych: cooperative Dictation was produced using [employer] dictation software. please excuse any grammatical, word or spelling errors. Jayden San MD PGY-1 IM A total of 38 minutes of time were spent preparing this complex discharge summary. Patient was discharged on 11/16/2024 at 950. I have seen and evaluated the patient today. Discussed with the resident and agree with the residents finding and plan as documented in the resident's note. Changes highlighted in blue font. Patient Condition at Discharge: Good Plan - Discharge Summary New Discharge Prescriptions: New Cyanocobalamin [Vitamin B-12] 1,000 mcg PO DAILY #60 tab Continue norgestimate-ethinyl estradioL [Lucy 0.25-0.035 mg Tablet] 1 tab PO HS buPROPion XL [Wellbutrin XL] 300 mg PO DAILY lamoTRIgine [LaMICtal Xr] 50 mg PO DAILY Cariprazine HCl [Vraylar] 1.5 mg PO HS Albuterol Inhaler [Ventolin Hfa Inhaler] 2 puff INHALATION RT-Q4H PRN PRN Reason: Shortness Of Breath Lisdexamfetamine Dimesylate [Vyvanse] 20 mg PO DAILY Discharge Medication List buPROPion XL [Wellbutrin XL] 300 mg PO DAILY 06/18/23 [History] norgestimate-ethinyl estradioL [Lucy 0.25-0.035 mg Tablet] 1 tab PO HS 06/18/23 [History] Albuterol Inhaler [Ventolin Hfa Inhaler] 2 puff INHALATION RT-Q4H PRN 11/10/24 [History] Cariprazine HCl [Vraylar] 1.5 mg PO HS 11/10/24 [History] Lisdexamfetamine Dimesylate [Vyvanse] 20 mg PO DAILY 11/10/24 [History] lamoTRIgine [LaMICtal Xr] 50 mg PO DAILY 11/10/24 [History] Cyanocobalamin [Vitamin B-12] 1,000 mcg PO DAILY #60 tab 11/16/24 [Rx] Follow up Appointment(s)/Referral(s): Deepa Nicholson MD [REFERRING] - 1 Week Phani Mccrary MD [Primary Care Provider] - 1-2 days Activity/Diet/Wound Care/Special Instructions: Please be sure to follow-up with your primary care physician as well as outpatient neuromuscular clinic for further evaluation workup within 1 week of discharge. Recommendation for repeat EMG with [facility] as an outpatient of the lower extremities followed by the upper extremity Discharge Disposition: HOME SELF-CARE
[2024-11-16 14:38] VITALS: BP 102/68; PULSE 101; TEMP 98
[2024-11-16] MEDS: IMMUNE GLOBULIN (GAMMAGARD) 20 GM in EMPTY BAG 1 BAG IV ONE (14:53)
[2024-11-16] MEDS: IMMUNE GLOBULIN (GAMMAGARD) 5 GM in EMPTY BAG 1 BAG IV ONE (14:55)
[2024-11-16] MEDS: CYANOCOBALAMIN 1,000 MCG/ML 1 ML VIAL IM ONE (18:23)
[2024-11-17 14:58] LABS: IgG - CSF 2.5 mg/dL (0.0 - 3.4); IgG/Albumin Index (CSF) 0.47 (0.00 - 0.77); Immunoglobulin G 951 mg/dL (700 - 1600)
[2024-11-18 08:48] LABS: Mercury Whole Blood <4 mcg/L (<=10)
== END 2024-11-16 18:28 | disposition home or self-care (01) | DRG 96 ==
LOC: EC 15:15 → OBSVTOIN 20:20 → 6NMEDSUR 20:20
PROVIDERS: ADMIT Internal Medicine; ATTEND Internal Medicine
PROC: 009U3ZX Drainage of Spinal Canal, Percutaneous Approach, Diagnostic (ICD-10-PCS; principal; 2024-11-11)
DX: G61.0 Guillain-Barre syndrome (principal); E53.8 Deficiency of other specified B group vitamins; F31.9 Bipolar disorder, unspecified; E66.9 Obesity, unspecified; E55.9 Vitamin D deficiency, unspecified; Z68.36 Body mass index [BMI] 36.0-36.9, adult; K21.9 Gastro-esophageal reflux disease without esophagitis; R51.9 Headache, unspecified; M54.2 Cervicalgia; F41.9 Anxiety disorder, unspecified; F90.9 Attention-deficit hyperactivity disorder, unspecified type; F17.290 Nicotine dependence, other tobacco product, uncomplicated; W10.9XXA Fall (on) (from) unspecified stairs and steps, initial encounter; Z79.899 Other long term (current) drug therapy; Z79.85 Long-term (current) use of injectable non-insulin antidiabetic drugs
CPT/HCPCS: 36415; 70450; 70553; 72156; 72157; 72158; 80048; 80053; 81001; 81025; 82040; 82042; 82525; 82542; 82607; 82652; 82747; 82784; 82945; 83090; 83516; 83605; 83655; 83735; 83825; 83873; 83916; 83921; 84157; 84207; 84425; 84630; 85025; 85027; 85610; 85652; 85730; 86038; 86140; 86235; 86255; 86618; 87070; 87205; 87636; 89050; 99285

== ENCOUNTER → 2024-11-22 | Outpatient (CLI) | payer OTHER ==
[2024-11-23 01:02] LABS: Cardiolipin Ab IgG Interp Negative (Negative); Cardiolipin Ab IgM Interp Negative (Negative); Cardiolipin IgA Antibody <2.0 U/mL; Cardiolipin IgM Antibody <1.5 U/mL
[2024-11-23 09:44] LABS: Protein S Antigen 80 % (50 - 140)
[2024-11-23 10:33] LABS: Protein C Antigen 123 % (72-160)
[2024-11-24 12:04] LABS: Anti-Thrombin III Activity 93 % (79-109)
== END | disposition home or self-care (01) ==
LOC: LABWHC1 09:39
PROVIDERS: ATTEND Nurse Practitioner Adult Health
DX: G93.9 Disorder of brain, unspecified (principal)
CPT/HCPCS: 36415; 81240; 81291; 85300; 85302; 85303; 85305; 85306; 86141; 86147